=== PATIENT | male | born 1950 | race Caucasian/White ===

== ENCOUNTER 2020-05-09 06:17 | Outpatient (REF) | payer MEDICARE, OTHER, SELFPAY | END 2020-05-09 06:18 | disposition home or self-care (01) | LOC: HO.LAB 06:17 | PROVIDERS: PCP Internal Medicine; Visit Provider Internal Medicine | DX: Z20.822 Contact with and (suspected) exposure to COVID-19 (principal) | CPT/HCPCS: 36415; C9803; U0003 ==

== ENCOUNTER → 2021-10-04 10:12 | Outpatient (BNVA) | payer MEDICARE, OTHER, SELFPAY | PROVIDERS: PCP Internal Medicine; Visit Provider Surgery | DX: K40.90 Unilateral inguinal hernia, without obstruction or gangrene, not specified as recurrent (principal); E78.00 Pure hypercholesterolemia, unspecified; K21.9 Gastro-esophageal reflux disease without esophagitis; I10 Essential (primary) hypertension; Z90.79 Acquired absence of other genital organ(s) | CPT/HCPCS: 99202 ==

== ENCOUNTER → 2021-12-04 08:17 | Outpatient (BNVA) | payer MEDICARE, OTHER, SELFPAY | PROVIDERS: PCP Internal Medicine; Visit Provider Surgery | DX: K40.90 Unilateral inguinal hernia, without obstruction or gangrene, not specified as recurrent (principal); E78.00 Pure hypercholesterolemia, unspecified; K21.9 Gastro-esophageal reflux disease without esophagitis; I10 Essential (primary) hypertension; Z90.79 Acquired absence of other genital organ(s); Z79.899 Other long term (current) drug therapy | CPT/HCPCS: 99212 ==

== ENCOUNTER 2021-12-14 08:09 | Day surgery (SDC) | payer MEDICARE, OTHER, SELFPAY ==
[2021-12-07 16:07] VITALS: BMI 25.8
--- NOTE | 2021-12-12 15:49 | P.OP_ITS ---
Operative Note Operative Note Date of Service: 12/14/21 Narrative: Preop diagnosis: [RIGHT inguinal hernia] Postop diagnosis: [same, Direct] Procedure: [Open RIGHT INGUINAL HERNIA REPAIR WITH BARD MESH] Surgeon: Jayce Hollis MD Assist: [Jennifer Claros PA-C] Anesthesia: [General via LMA] Estimated blood loss: [3cc] Specimen: [none] Intraoperative findings: [A direct right inguinal hernia containing viable properitoneal fat was reduced and the floor imbricated with 2-0 polysorb. 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 He reports no urinary/incontinence issues post prostatectomy. Given his symptomatic hernia we discussed options including observation versus open operative repair with mesh. The option of a 2nd opinion was also discussed. The inherent risks to hernia repair including bleeding, infection, mesh complications that could require referral to a pain management center or reoperation to remove the mesh, bowel injury, effects of general anesthesia including urinary retention, seroma, and hernia recurrence, especially in the setting of increasing weight gain/obesity were all discussed at length in the patient's questions seemed to be answered. Procedure: [The patient was identified in the preoperative holding area by myself and the operative site marked by me confirming a RIGHT inguinal hernia. 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 The operative field hair had been clipped in preop holding. The patient was again identified in the operating suite and placed supine on the table. See anesthesia notes for full details regarding anesthesia care and management. An appropriate time-out was performed confirming the operative site and procedure. The patient was then widely prepped and draped in the usual manner using chlorhexidine. An ileoinguinal nerve block was performed using 0.5% ropivacaine and a standard RIGHT inguinal herniorrhaphy incision made sharply through the skin. Dissection was carried through all layers using electric cautery for dissection and hemostasis. Additional local was infiltrated is the external oblique aponeurosis, in the external oblique aponeurosis opened sharply in the direction of its fibers to the external ring. The ilioinguinal nerve was identified and preserved/sacrificed through the dissection. The cord was mobilized at the level of the pubic tubercle and surrounded with hernia tape. The floor was inspected and a direct hernia containing viable fat was dissected & reduced. Careful dissection of the spermatic cord to preserve the vessels and vas was performed to assess for indirect hernia sac. The hernia sac was highly dissected, opened, its contents reduced and suture ligation performed. Next, the floor was imbricated using a 2-0 Polysorb and a standard Stanley tension-free herniorrhaphy performed using polypropylene patch that was sutured to the pubic tubercle and inguinal ligament using a 2-0 Polysorb. A new internal ring was made using 2-0 polypropylene suture. The new internal ring was snug enough that it could just accommodate a tip of a hemostat. Next, the operative field was inspected for hemostasis which was good, ZynRelief applied, the external oblique aponeurosis was closed with a running 0 Polysorb suture, subcutaneous tissues closed with 3-0 Polysorb and skin closed with running 4-0 Monocryl subcuticular suture. The abdomen was washed and dried, Mastisol and Steri-Strips applied followed by a sterile dressing. Patient tolerated the procedure well was sent to the recovery area in stable condition. All sponge and instrument counts were correct x2. At the patient's request, I contacted his Janae [phone] and apprised her by telephone of the procedure. Instructions regarding limiting activity and pain management were reviewed. Questions were answered.]
[2021-12-14] MEDS: Lactated Ringers 1,000 ML 50 ML IVCONT (08:25)
[2021-12-14 08:30] VITALS: BP 145/82; PULSE 55; RESP 18; TEMP 36.5; O2SAT 97
[2021-12-14] MEDS: Heparin Sodium,Porcine 5,000 UNIT/ML VIAL 5000 UNIT SUBCUT (08:35)
--- NOTE | 2021-12-14 08:44 | PC.NURSE ---
allergy and reaction reviewed with dr. walko. mckee to give cefazolin
--- NOTE | 2021-12-14 08:46 | MHC.SHP ---
Pre-Procedural Eval Section A Date of Service: 12/14/21 The patient is an INPATIENT: No The History & Physical has been completed within 30 days and I have reviewed it.: Yes Section B Chief Complaint: hernia Allergies: Allergies Allergy/AdvReac Type Severity Reaction Status Date / Time Sulfa (Sulfonamide AdvReac Mild Hives Verified 12/14/21 08:02 Antibiotics) Plan I have reviewed the history and physical and performed a pertinent physical examination on my patient. No changes have occurred unless specified.
--- NOTE | 2021-12-14 08:48 | HO.ANESPROP2 ---
[facility] Active Problems Active Problems: All Active Problems (Updated 12/07/21 @ 15:00 by Dannielle Gallardo, CHARLENE) Reducible right inguinal hernia (Acute) Hypercholesterolemia (Acute) GERD (gastroesophageal reflux disease) (Acute) Status post prostatectomy (Acute) HTN (hypertension) (Acute) Past Medical History Medical History Elevated cholesterol GERD (gastroesophageal reflux disease) HTN (hypertension) Family History Family History Mother Alcohol abuse Father Mental health disorder Heart aneurysm Brother Suicide Family history of problems with anesthesia: No Surgical History Surgical History History of bilateral cataract extraction History of prostatectomy History of Problems with Anesthesia: No Social History Social History Are you a primary primary care md to a significant other at home: No Do you presently have visiting nurse or other home services: No Alcohol intake: never Patient Tobacco Use Status: Former Tobacco user Quit Date: ~ 24 yrs ago Tobacco use type: Cigarette Second Hand Smoke Exposure: No Use of substances other than those prescribed or required for medical reasons: No Have you been hit, kicked, punched, or otherwise hurt by someone within the past year? If so, by whom?: No Are you DNR?: No Advance Directives: No Advance Directives Information Provided: Yes Advance Directives on File: No Recently lost weight without trying: No Eating poorly because of decreased appetite: No Nutrition Risks: No Nutritional Risk Meds Allergies Allergy/AdvReac Type Severity Reaction Status Date / Time Sulfa (Sulfonamide AdvReac Mild Hives Verified 12/14/21 08:02 Antibiotics) Active Medications: Current Medications Fentanyl (Fentanyl Citrate/Pf 100 Mcg/2 Ml Vial) 25 mcg IVPUSH Q5M PRN; Protocol PRN Reason: Pain, Moderate (Pain Scale 4-6 Lactated Ringer's (Lr) 1,000 mls @ 50 mls/hr IVCONT .Q20H VIVIANE Last Admin: 12/14/21 08:25 Dose: 50 mls/hr Lactated Ringer's (Lr) 1,000 mls @ 50 mls/hr IVCONT .Q20H VIVIANE Ondansetron HCl (Ondansetron Hcl 4 Mg/2 Ml Vial) 4 mg IVPUSH ONCE PRN PRN Reason: Nausea and Vomiting Oxycodone HCl (Oxycodone Hcl Immed Release 5 Mg Tablet) 5 mg PO ONCE PRN PRN Reason: Pain, Severe (Pain Scale 7-10) Home Medications Medication Instructions Recorded Confirmed Last Taken Type amlodipine 5 mg tablet 5 mg PO DAILY 10/04/21 12/07/21 Unknown History cyclosporine 0.05 % eye drops in a 1 drp ophthalmic (eye) BID 10/04/21 12/07/21 Unknown History dropperette (Restasis) omeprazole 20 mg capsule,delayed 20 mg PO DAILY 10/04/21 12/07/21 Unknown History release simvastatin 10 mg tablet 10 mg PO BEDTIME 10/04/21 12/07/21 Unknown History Exam Exam Date and Time: December 14, 2021 0848 Height,Weight and Vital Signs: Height 5 ft 10 in Weight 81.647 kg Last Vital Signs Temp 97.7 F 12/14/21 08:30 Pulse 55 12/14/21 08:30 Resp 18 12/14/21 08:30 BP 145/82 H 12/14/21 08:30 Pulse Ox 97 12/14/21 08:30 O2 Del Method 12/14/21 08:30 Airway Mallampati Class: I TM Dist: >3cm Neck ROM: Full Loose/Missing/Broken Teeth: No (Rrr) Lungs: clear Assessment and Plan Final Anesthetic Review Family History of Problems with Anesthesia: No History of Problems with Anesthesia: No Final Preanesthetic Review: No Changes in Pt Med Stat, Meds/Allgs Chart Reviewed, Consent Obtained/Reviewed and Anes Risks/Benef Reviewed Patient Risk: Intermediate Procedure Risk: Low Anesthetic Plan Anesthetic Plan: GA Disposition: Standard PACU
[2021-12-14 10:32] VITALS: BP 138/84; PULSE 66; RESP 12; TEMP 36.5; O2SAT 100
[2021-12-14 10:37] VITALS: BP 134/80; PULSE 61; RESP 12; O2SAT 100
[2021-12-14 10:42] VITALS: BP 134/80; PULSE 58; RESP 12; O2SAT 99
[2021-12-14 10:47] VITALS: BP 134/78; PULSE 59; RESP 16; O2SAT 97
[2021-12-14 11:03] VITALS: BP 153/83; PULSE 59; RESP 16; TEMP 36.2; O2SAT 97
== END 2021-12-14 11:42 | disposition home or self-care (01) ==
LOC: HO.SSS 08:10
PROVIDERS: PCP Internal Medicine; Visit Provider Surgery
PROC: (CPT 49505; principal; 2021-12-14 11:30)
DX: K40.90 Unilateral inguinal hernia, without obstruction or gangrene, not specified as recurrent (principal); I10 Essential (primary) hypertension; E78.00 Pure hypercholesterolemia, unspecified; K21.9 Gastro-esophageal reflux disease without esophagitis; Z79.899 Other long term (current) drug therapy; Z88.2 Allergy status to sulfonamides; Z87.891 Personal history of nicotine dependence; Z90.79 Acquired absence of other genital organ(s)
CPT/HCPCS: 49505; C1781; C9088; J0690; J1100; J2250; J2405; J2795; J3010

== ENCOUNTER → 2021-12-22 09:28 | Outpatient (BNVA) | payer MEDICARE, OTHER, SELFPAY | PROVIDERS: PCP Internal Medicine; Visit Provider Surgery | DX: Z48.815 Encounter for surgical aftercare following surgery on the digestive system (principal) | CPT/HCPCS: 99212 ==

== ENCOUNTER → 2022-01-19 09:14 | Outpatient (BNVA) | payer MEDICARE, OTHER, SELFPAY | PROVIDERS: PCP Internal Medicine; Visit Provider Surgery | DX: Z09 Encounter for follow-up examination after completed treatment for conditions other than malignant neoplasm (principal); E78.00 Pure hypercholesterolemia, unspecified; I10 Essential (primary) hypertension; K21.9 Gastro-esophageal reflux disease without esophagitis; Z87.19 Personal history of other diseases of the digestive system; Z90.79 Acquired absence of other genital organ(s) | CPT/HCPCS: 99212 ==

== ENCOUNTER 2022-02-14 08:28 | Outpatient (REF) | payer MEDICARE, OTHER, SELFPAY ==
[2022-02-14 11:27] LABS: MANUAL DIFF FLAG NO
[2022-02-14 11:30] LABS: Appearance Urine Clear; Color Urine Yellow; Glucose Urine UA Negative (Negative); Leukocyte Esterase Urine Negative (Negative); Nitrite Urine Negative (Negative); PH 5.5 (5.0-9.0); Specific Gravity - Urine 1.015 (1.005-1.025); Urine Blood Negative (Negative); Urine Ketones Negative (Negative); Urine Protein Negative (Neg-Trace)
[2022-02-14 11:39] LABS: Bacteria Urine None Seen (None Seen); Hyaline Casts Urine 0-2 /LPF (0-2); RBC Urine 0-2 /HPF (0-2); Squamous Epithelial Cell Urine 0-2 /HPF (0-2); WBC Urine 0-5 /HPF (0-5)
[2022-02-14 11:52] LABS: Alanine Aminotransferase 17 U/L (0-40); Albumin Level 4.4 g/dL (3.5-5.0); Alkaline Phosphatase 65 U/L (39-117); Anion Gap 15 (12-20); Aspartate Amino Transferase 18 U/L (5-37); Bilirubin Total 1.4 mg/dL (0.0-1.0); Blood Urea Nitrogen 13 mg/dL (9-16); Calcium 9.1 mg/dL (8.4-10.2); Carbon Dioxide 23 mmol/L (22-29); Chloride 105 mmol/L (96-108); Cholesterol 209 mg/dL; Estimated Glomerular Filt Rate > 60; Glucose Fasting 102 mg/dL (60-99); HDL Cholesterol 63 mg/dL; LDL Cholesterol Calculated 133 mg/dl; Potassium 4.1 mmol/L (3.3-5.1); Sodium 139 mmol/L (135-145); Total Protein 6.8 g/dL (6.5-8.0); Triglycerides 66 mg/dL
[2022-02-14 11:53] LABS: Basophils Percent Auto 0.7 % (0-2); Eosinophils Absolute Auto 0.2 X10*3/uL (0.0-0.4); Eosinophils Percent Auto 3.8 % (0-4); Hematocrit 42.1 % (42.0-52.0); Imm Gran Abs Auto 0.01 X10*3/uL (0.00-0.03); Imm Gran Pct Auto 0.2 % (0.0-0.4); Lymphocytes Absolute Auto 0.9 X10*3/uL (1.2-4.9); Lymphocytes Percent Auto 16.1 % (20-40); Mean Corpuscular HGB Conc 33.3 g/dl (31.0-36.0); Mean Corpuscular Hemoglobin 29.7 pg (27.0-33.0); Mean Corpuscular Volume 89.2 fL (80.0-98.0); Mean Platelet Volume 11.6 fL (9.4-12.4); Monocytes Absolute Auto 0.5 X10*3/uL (0.1-1.2); Monocytes Percent Auto 9.8 % (2-11); Neutrophils Absolute Auto 3.8 x10*3/uL (2.0-8.3); Neutrophils Percent Auto 69.4 % (45-73); Platelet Count 194 X10*3/uL (160-400); Red Blood Count 4.72 X10*6/uL (4.60-5.80); Red Cell Distribution Width 13.5 % (11.0-16.0); White Blood Count 5.5 X10*3/uL (4.8-10.8)
[2022-02-14 12:17] LABS: TSH reflex Free T4 0.98 uIU/mL (0.32-4.0)
== END 2022-02-14 08:29 | disposition home or self-care (01) ==
LOC: HO.HMGCLDS 08:28
PROVIDERS: PCP Internal Medicine; Visit Provider Internal Medicine
DX: Z00.00 Encounter for general adult medical examination without abnormal findings (principal); E78.00 Pure hypercholesterolemia, unspecified; I10 Essential (primary) hypertension
CPT/HCPCS: 36415; 80053; 80061; 81001; 84443; 85025

== ENCOUNTER 2022-06-14 16:46 | Emergency (ER) | payer MEDICARE, OTHER, SELFPAY ==
--- NOTE | ~2022-06-14 | XR_ITS ---
EXAMINATION: XR CHEST CLINICAL INFORMATION: Chest pain COMPARISON: Chest x-ray 01/19/2013 TECHNIQUE: 2 views of the chest were obtained. FINDINGS: The lungs appear clear. No airspace consolidation. No pleural effusion or pneumothorax. Cardiomediastinal silhouette is within normal limits. No evidence pulmonary edema. No acute osseous injury. Multilevel degenerative disc disease in the thoracic spine. XR/XR chest 2V IMPRESSION: No acute pulmonary process.
--- NOTE | 2022-06-14 16:48 | ECG_ITS ---
Test Reason : CHEST PAIN Blood Pressure : / mmHG Vent. Rate : 054 BPM Atrial Rate : 054 BPM P-R Int : 178 ms QRS Dur : 088 ms QT Int : 414 ms P-R-T Axes : 035 022 053 degrees QTc Int : 392 ms Sinus bradycardia Otherwise normal ECG When compared with ECG of 19-JAN-2013 12:05, No significant change was found Referred By: Generic ED Physician Electronically Signed By:ANGELINA COY
[2022-06-14 17:09] VITALS: BP 158/75; PULSE 53; RESP 16; TEMP 36.6; O2SAT 99; BMI 25.8
--- NOTE | 2022-06-14 17:10 | ED_ITS ---
HPI - Chest Pain General Chief Complaint: Chest Pain <Aleksandra Ramirez CNP - Last Filed: 06/14/22 17:15> Stated Complaint: chest pain x5 days <Aleksandra Ramirez CNP - Last Filed: 06/14/22 17:15> Time Seen by Provider: 06/14/22 21:06 <Aleksandra Ramirez CNP - Last Filed: 06/14/22 17:15> Source: patient <Ab Caal MD - Last Filed: 06/15/22 05:53> Mode of arrival: ambulatory <Ab Caal MD - Last Filed: 06/15/22 05:53> Limitations: no limitations <Ab Caal MD - Last Filed: 06/15/22 05:53> History of Present Illness HPI narrative: Patient with history of high cholesterol hypertension no known coronary disease comes in for 4-5 days of left-sided chest pain, which feels like pressure achy feeling constant no diaphoresis no shortness of breath no leg swelling no palpitation patient never had similar pain in the past denies any anxiety pain is continuous. Prior to my evaluation patient had cardiogram and labs done cardiogram was normal without any ischemic changes high sensitive troponin was normal chest pain get worse on movements <Ab Caal MD - Last Filed: 06/15/22 05:53> Related Data Home Medications: Home Medications Medication Instructions Recorded Confirmed cyclosporine 0.05 % eye drops in a 1 drp ophthalmic (eye) BID 10/04/21 02/14/22 dropperette (Restasis) omeprazole 20 mg capsule,delayed 20 mg PO DAILY 10/04/21 02/14/22 release Previous Rx's Medication Instructions Recorded amlodipine 5 mg tablet 5 mg PO DAILY #90 tabs 02/14/22 simvastatin 10 mg tablet 10 mg PO BEDTIME #90 tabs 02/14/22 nirmatrelvir 300 mg (150 mg See Rx Instructions PO .COMPLEX 04/18/22 x2)-ritonavir 100 mg tablet,dose #30 ea pack(EUA) (Paxlovid) tramadol 50 mg tablet 50 mg PO Q6H PRN pain #20 tabs 06/14/22 <Aleksandra Ramirez CNP - Last Filed: 06/14/22 17:15> Allergies/Adverse Reactions: Allergies Allergy/AdvReac Type Severity Reaction Status Date / Time Sulfa (Sulfonamide AdvReac Mild Hives Verified 02/14/22 07:39 Antibiotics) <Aleksandra Ramirez CNP - Last Filed: 06/14/22 17:15> Review of Systems Review of Systems: Yes all other systems are reviewed and are negative <Ab Caal MD - Last Filed: 06/15/22 05:53> [facility] Past Medical History Medical History: Medical History Elevated cholesterol GERD (gastroesophageal reflux disease) HTN (hypertension) <Aleksandra Ramirez CNP - Last Filed: 06/14/22 17:15> Surgical History: Surgical History History of bilateral cataract extraction History of prostatectomy History of right inguinal hernia repair <Aleksandra Ramirez CNP - Last Filed: 06/14/22 17:15> Family History Family History: Family History Mother Alcohol abuse Substance use disorder Mental health disorder Father Heart aneurysm Substance use disorder Brother Suicide Substance use disorder <Aleksandra Ramirez CNP - Last Filed: 06/14/22 17:15> Social History Social History: Social History Household Members Other:: 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, , 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 Housing: House Are you a primary critical care rn to a significant other at home: No Do you presently have visiting nurse or other home services: No Alcohol intake: never Patient Tobacco Use Status: Former Tobacco user Quit Date: ~ 24 yrs ago Tobacco use type: Cigarette e-Cigarette/Vaping Use: Never Used Second Hand Smoke Exposure: No Advance Directives: Yes Advance Directives Information Provided: No Advance Directives on File: No Cognitive needs: No Hearing needs: No Vision needs: Yes <Aleksandra Ramirez CNP - Last Filed: 06/14/22 17:15> Physical Exam Vital Signs: Vital Signs: Last Vital Signs Temp 97.8 F 06/14/22 20:00 Pulse 59 06/14/22 20:00 Resp 16 06/14/22 20:00 BP 159/77 H 06/14/22 20:00 Pulse Ox 98 06/14/22 20:00 O2 Del Method 06/14/22 20:00 BMI result Body Mass Index 25.8 <Aleksandra Ramirez CNP - Last Filed: 06/14/22 17:15> Vital Signs: Last Vital Signs Temp 97.8 F 06/14/22 20:00 Pulse 59 06/14/22 20:00 Resp 16 06/14/22 20:00 BP 159/77 H 06/14/22 20:00 Pulse Ox 98 06/14/22 20:00 O2 Del Method 06/14/22 20:00 BMI result Body Mass Index 25.8 <Ab Caal MD - Last Filed: 06/15/22 05:53> Appearance: Alert. Oriented X3. No acute distress. Eyes: PERRLA, No Nystagmus ENT: Pharynx normal. Oral Mucosa moist Neck: Normal inspection. Neck supple. CVS: Normal heart rate and rhythm. Pulses normal. Respiratory: No respiratory distress. Equal air entry bilateral, no wheezing/rales/rhonchi Abdomen: Soft and nontender. Bowel sounds are present, no mass palpable, no CVA tenderness Skin: Skin warm and dry. Normal skin color. Normal skin turgor. Extremities: No lower extremity edema. No calf tenderness Neuro: Oriented X 3. No motor deficit. No sensory deficit.No cerebellar signs , cranial nerves II-XII intact <Ab Caal MD - Last Filed: 06/15/22 05:53> Course Course Course Narrative: This is an RME: Additional HPI, ROS, PE not included below will be deferred to primary provider. Patient is a 72-year-old male with hx of HTN, HLD who presents to emergency department for evaluation. Onset 5 days ago was experiencing neck pain, thought to be related to sleeping wrong, this improved. Then he developed constant left chest pain, worse with movement of arm, heavy lifting, deep breathing. Denies fever, cough, URI symptoms, SOB. Plan: labs, EKG, CXR, viral testing <Aleksandra Ramirez CNP - Last Filed: 06/14/22 17:15> Medications Administered Discontinued Medications Generic Name Dose Route Start Last Admin Trade Name Freq PRN Reason Stop Dose Admin Tramadol HCl 50 mg 06/14/22 21:34 06/14/22 21:47 Tramadol Hcl 50 Mg Tablet PO 06/14/22 21:35 50 mg ONCE ONE Administration <Aleksandra Ramirez CNP - Last Filed: 06/14/22 17:15> Medications Administered Discontinued Medications Generic Name Dose Route Start Last Admin Trade Name Freq PRN Reason Stop Dose Admin Tramadol HCl 50 mg 06/14/22 21:34 06/14/22 21:47 Tramadol Hcl 50 Mg Tablet PO 06/14/22 21:35 50 mg ONCE ONE Administration <Ab Caal MD - Last Filed: 06/15/22 05:53> Medical Decision Making Medical Decision Making [facility] Narrative: Patient atypical chest pain for more than 4 days normal cardiogram normal I sent a troponin increases on movement likely musculoskeletal. Will discharge patient on tramadol advised follow-up with <Ab Caal MD - Last Filed: 06/15/22 05:53> Lab Data [facility] Lab Attestation statement: I reviewed the patient's lab results. <Ab Caal MD - Last Filed: 06/15/22 05:53> Result Diagrams: 06/14/22 17:26 06/14/22 17:26 <Aleksandra Ramirez CNP - Last Filed: 06/14/22 17:15> Labs: Lab Results 06/14/22 06/14/22 06/14/22 Range/Units 17:26 17:26 17:26 WBC 6.4 (4.8-10.8) X10*3/uL RBC 4.75 (4.60-5.80) X10*6/uL Hgb 14.3 (14.0-18.0) g/dl Hct 42.2 (42.0-52.0) % MCV 88.8 (80.0-98.0) fL MCH 30.1 (27.0-33.0) pg MCHC 33.9 (31.0-36.0) g/dl RDW 13.3 (11.0-16.0) % Plt Count 181 (160-400) X10*3/uL MPV 11.0 (9.4-12.4) fL Immature Gran % (Auto) 0.2 (0.0-0.4) % Neut % (Auto) 67.8 (45-73) % Lymph % (Auto) 19.2 L (20-40) % Harris % (Auto) 8.3 (2-11) % Eos % (Auto) 3.6 (0-4) % Baso % (Auto) 0.9 (0-2) % Lymph # (Auto) 1.2 (1.2-4.9) X10*3/uL Harris # (Auto) 0.5 (0.1-1.2) X10*3/uL Eos # (Auto) 0.2 (0.0-0.4) X10*3/uL Baso # (Auto) 0.1 (0.0-0.2) X10*3/uL Abs Immat Gran (auto) 0.01 (0.00-0.03) X10*3/uL Absolute Neuts (auto) 4.3 (2.0-8.3) x10*3/uL Absolute Nucleated RBC 0.000 (0.0-0.012) X10*3/uL Nucleated RBC % (auto) 0.0 (0.0-0.2) /100WBC Sodium 140 (135-145) mmol/L Potassium 4.4 (3.3-5.1) mmol/L Chloride 104 (96-108) mmol/L Carbon Dioxide 29 (22-29) mmol/L Anion Gap 11 L (12-20) BUN 16 (9-16) mg/dL Creatinine 0.96 (0.5-1.4) mg/dL Estim Creat Clear Calc 69.7 Estimated GFR > 60 Random Glucose 92 (60-115) mg/dL Calcium 9.3 (8.4-10.2) mg/dL Total Bilirubin 1.7 H (0.0-1.0) mg/dL AST 18 (5-37) U/L ALT 13 (0-40) U/L Alkaline Phosphatase 59 (39-117) U/L Troponin I High Sens < 3.5 (<3.5-35.0) ng/L Total Protein 6.7 (6.5-8.0) g/dL Albumin 4.4 (3.5-5.0) g/dL COVID-19 (CASSIE) (Negative) COVID-19 Clin Com Influenza Type A (MANE) (Negative) Influenza Type B (MANE) (Negative) Influenza A & B Note 06/14/22 06/14/22 Range/Units 17:26 17:26 WBC (4.8-10.8) X10*3/uL RBC (4.60-5.80) X10*6/uL Hgb (14.0-18.0) g/dl Hct (42.0-52.0) % MCV (80.0-98.0) fL MCH (27.0-33.0) pg MCHC (31.0-36.0) g/dl RDW (11.0-16.0) % Plt Count (160-400) X10*3/uL MPV (9.4-12.4) fL Immature Gran % (Auto) (0.0-0.4) % Neut % (Auto) (45-73) % Lymph % (Auto) (20-40) % Harris % (Auto) (2-11) % Eos % (Auto) (0-4) % Baso % (Auto) (0-2) % Lymph # (Auto) (1.2-4.9) X10*3/uL Harris # (Auto) (0.1-1.2) X10*3/uL Eos # (Auto) (0.0-0.4) X10*3/uL Baso # (Auto) (0.0-0.2) X10*3/uL Abs Immat Gran (auto) (0.00-0.03) X10*3/uL Absolute Neuts (auto) (2.0-8.3) x10*3/uL Absolute Nucleated RBC (0.0-0.012) X10*3/uL Nucleated RBC % (auto) (0.0-0.2) /100WBC Sodium (135-145) mmol/L Potassium (3.3-5.1) mmol/L Chloride (96-108) mmol/L Carbon Dioxide (22-29) mmol/L Anion Gap (12-20) BUN (9-16) mg/dL Creatinine (0.5-1.4) mg/dL Estim Creat Clear Calc Estimated GFR Random Glucose (60-115) mg/dL Calcium (8.4-10.2) mg/dL Total Bilirubin (0.0-1.0) mg/dL AST (5-37) U/L ALT (0-40) U/L Alkaline Phosphatase (39-117) U/L Troponin I High Sens (<3.5-35.0) ng/L Total Protein (6.5-8.0) g/dL Albumin (3.5-5.0) g/dL COVID-19 (CASSIE) Negative (Negative) COVID-19 Clin Com See Note Influenza Type A (MANE) Negative (Negative) Influenza Type B (MANE) Negative (Negative) Influenza A & B Note See Note <Aleksandra Ramirez, HOSPITALITY MANAGER - Last Filed: 06/14/22 17:15> Lab Results 06/14/22 06/14/22 06/14/22 Range/Units 17:26 17:26 17:26 WBC 6.4 (4.8-10.8) X10*3/uL RBC 4.75 (4.60-5.80) X10*6/uL Hgb 14.3 (14.0-18.0) g/dl Hct 42.2 (42.0-52.0) % MCV 88.8 (80.0-98.0) fL MCH 30.1 (27.0-33.0) pg MCHC 33.9 (31.0-36.0) g/dl RDW 13.3 (11.0-16.0) % Plt Count 181 (160-400) X10*3/uL MPV 11.0 (9.4-12.4) fL Immature Gran % (Auto) 0.2 (0.0-0.4) % Neut % (Auto) 67.8 (45-73) % Lymph % (Auto) 19.2 L (20-40) % Harris % (Auto) 8.3 (2-11) % Eos % (Auto) 3.6 (0-4) % Baso % (Auto) 0.9 (0-2) % Lymph # (Auto) 1.2 (1.2-4.9) X10*3/uL Harris # (Auto) 0.5 (0.1-1.2) X10*3/uL Eos # (Auto) 0.2 (0.0-0.4) X10*3/uL Baso # (Auto) 0.1 (0.0-0.2) X10*3/uL Abs Immat Gran (auto) 0.01 (0.00-0.03) X10*3/uL Absolute Neuts (auto) 4.3 (2.0-8.3) x10*3/uL Absolute Nucleated RBC 0.000 (0.0-0.012) X10*3/uL Nucleated RBC % (auto) 0.0 (0.0-0.2) /100WBC Sodium 140 (135-145) mmol/L Potassium 4.4 (3.3-5.1) mmol/L Chloride 104 (96-108) mmol/L Carbon Dioxide 29 (22-29) mmol/L Anion Gap 11 L (12-20) BUN 16 (9-16) mg/dL Creatinine 0.96 (0.5-1.4) mg/dL Estim Creat Clear Calc 69.7 Estimated GFR > 60 Random Glucose 92 (60-115) mg/dL Calcium 9.3 (8.4-10.2) mg/dL Total Bilirubin 1.7 H (0.0-1.0) mg/dL AST 18 (5-37) U/L ALT 13 (0-40) U/L Alkaline Phosphatase 59 (39-117) U/L Troponin I High Sens < 3.5 (<3.5-35.0) ng/L Total Protein 6.7 (6.5-8.0) g/dL Albumin 4.4 (3.5-5.0) g/dL COVID-19 (CASSIE) (Negative) COVID-19 Clin Com Influenza Type A (MANE) (Negative) Influenza Type B (MANE) (Negative) Influenza A & B Note 06/14/22 06/14/22 Range/Units 17:26 17:26 WBC (4.8-10.8) X10*3/uL RBC (4.60-5.80) X10*6/uL Hgb (14.0-18.0) g/dl Hct (42.0-52.0) % MCV (80.0-98.0) fL MCH (27.0-33.0) pg MCHC (31.0-36.0) g/dl RDW (11.0-16.0) % Plt Count (160-400) X10*3/uL MPV (9.4-12.4) fL Immature Gran % (Auto) (0.0-0.4) % Neut % (Auto) (45-73) % Lymph % (Auto) (20-40) % Harris % (Auto) (2-11) % Eos % (Auto) (0-4) % Baso % (Auto) (0-2) % Lymph # (Auto) (1.2-4.9) X10*3/uL Harris # (Auto) (0.1-1.2) X10*3/uL Eos # (Auto) (0.0-0.4) X10*3/uL Baso # (Auto) (0.0-0.2) X10*3/uL Abs Immat Gran (auto) (0.00-0.03) X10*3/uL Absolute Neuts (auto) (2.0-8.3) x10*3/uL Absolute Nucleated RBC (0.0-0.012) X10*3/uL Nucleated RBC % (auto) (0.0-0.2) /100WBC Sodium (135-145) mmol/L Potassium (3.3-5.1) mmol/L Chloride (96-108) mmol/L Carbon Dioxide (22-29) mmol/L Anion Gap (12-20) BUN (9-16) mg/dL Creatinine (0.5-1.4) mg/dL Estim Creat Clear Calc Estimated GFR Random Glucose (60-115) mg/dL Calcium (8.4-10.2) mg/dL Total Bilirubin (0.0-1.0) mg/dL AST (5-37) U/L ALT (0-40) U/L Alkaline Phosphatase (39-117) U/L Troponin I High Sens (<3.5-35.0) ng/L Total Protein (6.5-8.0) g/dL Albumin (3.5-5.0) g/dL COVID-19 (CASSIE) Negative (Negative) COVID-19 Clin Com See Note Influenza Type A (MANE) Negative (Negative) Influenza Type B (MANE) Negative (Negative) Influenza A & B Note See Note <Ab Caal MD - Last Filed: 06/15/22 05:53> Independent Interpretation I performed an independent interpretation of an: EKG <Ab Caal MD - Last Filed: 06/15/22 05:53> Interpretation: Sinus bradycardia heart rate 54 beats per minute normal interval normal axis no acute ST changes no acute ischemia <Ab Caal MD - Last Filed: 06/15/22 05:53> Discharge Plan Discharge Clinical Impression: Chest pain <Aleksandra Ramirez CNP - Last Filed: 06/14/22 17:15> Patient Disposition: Home, Self-Care <Aleksandra Ramirez CNP - Last Filed: 06/14/22 17:15> Instructions: Chest Pain (ED) <Aleksandra Ramirez CNP - Last Filed: 06/14/22 17:15> Additional Instructions: Your chest pain is unlikely coming from the heart, tramadol for pain as advised Follow up with PCP for further evaluation including stress test <Aleksandra Ramirez CNP - Last Filed: 06/14/22 17:15> Prescriptions: New tramadol 50 mg tablet 50 mg PO Q6H PRN (Reason: pain) Qty: 20 0RF No Action Paxlovid (EUA) 300 mg (150 mg x 2)-100 mg tablets,dose pack See Rx Instructions PO .COMPLEX Qty: 30 0RF Rx Instructions: take TWO 150 mg tablets of nirmatrelvir with ONE 100 mg tablet of ritonavir twice daily for 5 days PO amlodipine 5 mg tablet 5 mg PO DAILY Qty: 90 3RF simvastatin 10 mg tablet 10 mg PO BEDTIME Qty: 90 3RF cyclosporine [Restasis] 0.05 % dropperette 1 drp ophthalmic (eye) BID omeprazole 20 mg capsule,delayed release(DR/EC) 20 mg PO DAILY <Aleksandra Ramirez CNP - Last Filed: 06/14/22 17:15> Interventions: ED Discharge Assessment Last Done: 06/14/22 21:56 <Aleksandra Ramirez CNP - Last Filed: 06/14/22 17:15> Discharge Date/Time: 06/14/22 21:57 <Aleksandra Ramirez CNP - Last Filed: 06/14/22 17:15>
[2022-06-14 17:32] LABS: MANUAL DIFF FLAG NO
[2022-06-14 17:47] LABS: Basophils Absolute Auto 0.1 X10*3/uL (0.0-0.2); Basophils Percent Auto 0.9 % (0-2); Eosinophils Absolute Auto 0.2 X10*3/uL (0.0-0.4); Eosinophils Percent Auto 3.6 % (0-4); Hematocrit 42.2 % (42.0-52.0); Hemoglobin 14.3 g/dl (14.0-18.0); Imm Gran Abs Auto 0.01 X10*3/uL (0.00-0.03); Imm Gran Pct Auto 0.2 % (0.0-0.4); Lymphocytes Absolute Auto 1.2 X10*3/uL (1.2-4.9); Lymphocytes Percent Auto 19.2 % (20-40); Mean Corpuscular HGB Conc 33.9 g/dl (31.0-36.0); Mean Corpuscular Hemoglobin 30.1 pg (27.0-33.0); Mean Corpuscular Volume 88.8 fL (80.0-98.0); Monocytes Absolute Auto 0.5 X10*3/uL (0.1-1.2); Monocytes Percent Auto 8.3 % (2-11); Neutrophils Absolute Auto 4.3 x10*3/uL (2.0-8.3); Neutrophils Percent Auto 67.8 % (45-73); Platelet Count 181 X10*3/uL (160-400); Red Blood Count 4.75 X10*6/uL (4.60-5.80); Red Cell Distribution Width 13.3 % (11.0-16.0); White Blood Count 6.4 X10*3/uL (4.8-10.8)
[2022-06-14 17:49] LABS: Alanine Aminotransferase 13 U/L (0-40); Albumin Level 4.4 g/dL (3.5-5.0); Alkaline Phosphatase 59 U/L (39-117); Anion Gap 11 (12-20); Aspartate Amino Transferase 18 U/L (5-37); Bilirubin Total 1.7 mg/dL (0.0-1.0); Blood Urea Nitrogen 16 mg/dL (9-16); Calcium 9.3 mg/dL (8.4-10.2); Carbon Dioxide 29 mmol/L (22-29); Chloride 104 mmol/L (96-108); Creatinine Clr Calc Pharmacy 69.7; Estimated Glomerular Filt Rate > 60; Glucose Random 92 mg/dL (60-115); Potassium 4.4 mmol/L (3.3-5.1); Sodium 140 mmol/L (135-145); Total Protein 6.7 g/dL (6.5-8.0)
[2022-06-14 17:51] LABS: COVID-19 Test Negative (Negative); IDNOW Serial# 16C4AD1C
[2022-06-14 17:52] LABS: IDNOW Serial# 9DB6401D; Influenza A Negative (Negative); Influenza B2 Negative (Negative)
[2022-06-14 17:53] VITALS: BP 145/76; PULSE 54; RESP 16; TEMP 36.5; O2SAT 98
--- NOTE | 2022-06-14 17:53 | MHC.EDTECH ---
this pct just assumed care of pt ,vitals sign taken ,pt was hooked up to monitoring coordinator .
[2022-06-14 17:56] LABS: Troponin-I High Sensitivity < 3.5 ng/L (<3.5-35.0)
[2022-06-14 20:00] VITALS: BP 159/77; PULSE 59; RESP 16; TEMP 36.6; O2SAT 98
[2022-06-14] MEDS: traMADoL HCL 50 MG TABLET PO (21:47)
== END 2022-06-14 21:57 | disposition home or self-care (01) ==
PROVIDERS: Nurse Practitioner Family; Emergency Provider Internal Medicine; PCP Internal Medicine
DX: R07.9 Chest pain, unspecified (principal); Z20.822 Contact with and (suspected) exposure to COVID-19; I10 Essential (primary) hypertension; E78.00 Pure hypercholesterolemia, unspecified; Z87.891 Personal history of nicotine dependence; Z79.02 Long term (current) use of antithrombotics/antiplatelets; Z79.899 Other long term (current) drug therapy
CPT/HCPCS: 71046; 80053; 84484; 85025; 87502; 87635; 93005; 99283; 99284

== ENCOUNTER → 2022-06-27 14:05 | Outpatient (BNVA) | payer MEDICARE, OTHER, SELFPAY | PROVIDERS: PCP Internal Medicine; Visit Provider Nurse Practitioner Family | DX: Z12.11 Encounter for screening for malignant neoplasm of colon (principal); K21.9 Gastro-esophageal reflux disease without esophagitis | CPT/HCPCS: 99202 ==

== ENCOUNTER 2022-12-05 06:45 | Day surgery (SDC) | payer MEDICARE, OTHER, SELFPAY ==
[2022-12-03 09:11] VITALS: BMI 26.3
--- NOTE | 2022-12-04 10:44 | P.CONAN_ITS ---
Documented by User: Aaliyah Petersen NP 12/04/22 10:45 HPI - Anesthesia Eval Consult details Narrative: 72yo M for Upper Endoscopy and Colonoscopy [facility] Active Problems Active Problems: All Active Problems (Updated 12/03/22 @ 09:05 by Yessica Herrera RN) Reducible right inguinal hernia (Acute) Hypercholesterolemia (Acute) GERD (gastroesophageal reflux disease) (Acute) Status post prostatectomy (Acute) HTN (hypertension) (Acute) Oropharyngeal dysphagia (Acute) Annual physical exam (Acute) Hx of colonoscopy (Acute) Blind left eye (Acute) Chest pain (Acute) Past Medical History Medical History (Updated 12/05/22 @ 08:04 by Frances Alvarez MD) Blind left eye Elevated cholesterol GERD (gastroesophageal reflux disease) HTN (hypertension) Family History Family History Mother Alcohol abuse Substance use disorder Mental health disorder Father Heart aneurysm Substance use disorder Brother Suicide Substance use disorder Family history of problems with anesthesia: No Surgical History Surgical History H/O colonoscopy History of bilateral cataract extraction History of prostatectomy History of right inguinal hernia repair History of Problems with Anesthesia: No Social History Social History Household Members Other:: 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 If so, by whom?: No Are you DNR?: No Advance Directives: No Advance Directives Information Provided: Yes (brochure mailed) Advance Directives on File: No Recently lost weight without trying: No Eating poorly because of decreased appetite: No Nutrition Risks: No Nutritional Risk Current occupational status: retired Cognitive needs: No Hearing needs: No Vision needs: Yes Meds Allergies Allergy/AdvReac Type Severity Reaction Status Date / Time Sulfa (Sulfonamide AdvReac Mild Hives Verified 08/14/22 08:55 Antibiotics) Home Medications Medication Instructions Recorded Confirmed Last Taken Type cyclosporine 0.05 % eye drops in a 1 drp ophthalmic (eye) BID 10/04/21 06/15/22 Unknown History dropperette (Restasis) prednisolone acetate 1 % eye 1 drp ophthalmic-Right QID 08/14/22 Unknown History drops,suspension Exam Exam Date and Time: December 04, 2022 1044 Height,Weight and Vital Signs: Height 5 ft 10 in Weight 83.007 kg Narrative Narrative: EKG 05/2022 Vent. Rate : 054 BPM ? ? Atrial Rate : 054 BPM ?? P-R Int : 178 ms? QRS Dur : 088 ms ? ? QT Int : 414 ms ? ? ? P-R-T Axes : 035 022 053 degrees ?? QTc Int : 392 ms ? Sinus bradycardia Otherwise normal ECG When compared with ECG of 19-JAN-2013 12:05, No significant change was found Assessment and Plan Assessment Anesthesia Assessment: Chart Reviewed Final Anesthetic Review Family History of Problems with Anesthesia: No History of Problems with Anesthesia: No Documented by User: Frances Alvarez MD 12/05/22 08:07 [facility] Active Problems Active Problems: All Active Problems (Updated 12/05/22 @ 07:18 by Frances Alvarez MD) Reducible right inguinal hernia (Acute) Hypercholesterolemia (Acute) GERD (gastroesophageal reflux disease) (Acute) Status post prostatectomy (Acute) HTN (hypertension) (Acute) Oropharyngeal dysphagia (Acute) Annual physical exam (Acute) Hx of colonoscopy (Acute) Blind left eye (Acute) Chest pain (Acute)05/2022. Seen in ER. Cardiac w/u negative. 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 If so, by whom?: No Are you DNR?: No Advance Directives: No Advance Directives Information Provided: Yes (brochure mailed) Advance Directives on File: No Recently lost weight without trying: No Eating poorly because of decreased appetite: No Nutrition Risks: No Nutritional Risk Current occupational status: retired Cognitive needs: No Hearing needs: No Vision needs: Yes Meds Allergies Allergy/AdvReac Type Severity Reaction Status Date / Time Sulfa (Sulfonamide AdvReac Mild Hives Verified 08/14/22 08:55 Antibiotics) Home Medications Medication Instructions Recorded Confirmed Last Taken Type cyclosporine 0.05 % eye drops in a 1 drp ophthalmic (eye) BID 10/04/21 06/15/22 Unknown History dropperette (Restasis) prednisolone acetate 1 % eye 1 drp ophthalmic-Right QID 08/14/22 Unknown History drops,suspension Exam Height,Weight and Vital Signs: Height 5 ft 10 in Weight 83.007 kg Vital Signs Temp Pulse Resp BP Pulse Ox O2 Del Method 12/05/22 07:29 96.9 F 56 20 131/98 H 98 Room Air Airway Mallampati Class: II TM Dist: >3cm Neck ROM: Full (but some stiffness from position ) Loose/Missing/Broken Teeth: No (Denies broken, loose, missing teeth) Heart: RRR Lungs: CTAB Assessment and Plan Assessment Anesthesia Assessment: Anesthesia Plan Discussed Final Anesthetic Review NPO: Yes ASA Class: II Final Preanesthetic Review: No Changes in Pt Med Stat, Meds/Allgs Chart Reviewed, Consent Obtained/Reviewed and Anes Risks/Benef Reviewed Patient Risk: Low Procedure Risk: Low Assessment/Block/Sedation in SS: Assess/Block/Sedation-SS Anesthetic Plan Anesthetic Plan: MAC: Disposition: Standard PACU
[2022-12-05 07:29] VITALS: BP 131/98; PULSE 56; RESP 20; TEMP 36.1; O2SAT 98
[2022-12-05] MEDS: Lactated Ringers 1,000 ML 100 ML IVCONT (07:46)
--- NOTE | 2022-12-05 08:33 | MHC.SHP ---
Pre-Procedural Eval Section A Date of Service: 12/05/22 Section B Chief Complaint: Screening,GERD Relevant Family History (Specify if Yes): No Relevant Social History: None Present Medications: see Short Stay Collaborative assessment Medical History: Significant History (Blind left eye Elevated cholesterol GERD (gastroesophageal reflux disease) HTN (hypertension)) History of Previous Operations: Relevant previous surgery/procedure and date(s) (H/O colonoscopy History of bilateral cataract extraction History of prostatectomy History of right inguinal hernia repair) Allergies: Allergies Allergy/AdvReac Type Severity Reaction Status Date / Time Sulfa (Sulfonamide AdvReac Mild Hives Verified 08/14/22 08:55 Antibiotics) Review of Systems Sugical H&P ROS: Negative: Constitution, Cardiovascular, Respiratory, Neurological, Psychiatric, Hem-Onc, Allergic/Immunologic, Gastrointestinal, Genitourinary, Musculoskeletal, Integumentary, Endocrine and Eyes/Ears/Nose/Throat Exam Surgical H&P Exam: Normal: HEENT, Normal: Heart, Normal: Lungs, Normal: Extremities, Normal: Abdomen, Normal: Skin and Normal: Neurological Plan Diagnosis/Plan: Unchanged I have reviewed the history and physical and performed a pertinent physical examination on my patient. No changes have occurred unless specified. Time Spent With Patient Time: Total time managing care of this patient today ____ minutes.
--- NOTE | 2022-12-05 08:42 | W.PM.OPN ---
Operative Note Operative Note Date of Service: 12/05/22 Narrative: Operative Information Procedure Description: EGD, Colonoscopy Indication: screening and GERD Anesthesia: MAC FLEXIBLE TRANSORAL UPPER GASTROINTESTINAL ENDOSCOPY AND COLONOSCOPY PROCEDURE NOTE UPPER ENDOSCOPY Consent: Indications for the procedure and potential complications of bleeding, perforation, reaction to medications and missed diagnosis were discussed with the patient and informed consent was obtained. Instrument: Olympus GIF H 190 J mid size upper endoscope Monitoring: Vital signs and clinical assessment, continuous EKG monitoring, Pulse oximetry, Carbon Dioxide monitoring and blood pressure monitoring were done throughout the procedure. Procedure: The patient was placed in the left lateral decubitis position and pre-procedure medications were administered and a bite block was placed. The endoscope was inserted into the mouth and advanced under direct vision to the third part of duodenum. A careful inspection was made as the upper endoscope was withdrawn including a retroflexed examination of the proximal stomach; Findings and interventions are described below. Findings: Larynx:normal Esophagus: GE junction at 44 cm, diaphragm hiatus at 44 cm, irregular z line with possible short segment barretts, bx taken from GEJ, the LEs was patulous Stomach: Slightly atrophic mucosa. Biopsies were obtained. Grade 2 flap valve on retroflexed examination of the cardia. Duodenum: Normal bulb and descending duodenum, Intervention: Biopsies as noted above COLONOSCOPY Instrument: Olympus variable stiffness pediatric scope 190L Colonoscopy Monitoring: Vital signs and clinical assessment, continuous EKG monitoring, Pulse oximetry, Carbon Dioxide monitoring and blood pressure monitoring were done throughout the procedure. Colon withdrawal time was 15 minutes. Procedure: The patient was placed in the left lateral decubitis position and pre-procedure medications were administered. After a digital rectal examination of the ano-rectum, the video colonoscope was inserted into the rectum and advanced through the colon to the cecum/TI. The colonoscope was slowly withdrawn in a retrograde panoramic fashion and the colon mucosa was carefully examined including a retroflexed view of the rectum. Findings and interventions are described below. Procedure Difficulty:moderate Findings: Terminal Ileum-not intubated Cecum:normal Ascending Colon: 4-6 mm sessile polyp removed with cold forceps, 10 mm sessile polyp removed with cold snare Transverse Colon - 12 mm sessile polyp removed with cold snare Descending Colon: 4-5 mm sessile polyp removed with cold forceps, mild diverticulosis noted Sigmoid Colon: severe diverticulosis - 10 mm sessile polyp removed with cold snare Rectum: Retroflexion with medium sized internal hemorrhoids, grade I, 10 mm sessile polyp removed with cold snare Anorectum - normal Colon preparation: [place] Bowel Preparation Scale Right colon; 2 Transverse colon: 2 Left colon; 1-2 (0 = Unprepared colon segment with mucosa not seen due to solid stool that cannot be cleared. 1 = Portion of mucosa of the colon segment seen, but other areas of the colon segment not well seen due to staining, residual stool and/or opaque liquid. 2 = Minor amount of residual staining, small fragments of stool and/or opaque liquid, but mucosa of colon segment seen well. 3 = Entire mucosa of colon segment seen well with no residual staining, small fragments of stool or opaque liquid) Impression and Post Procedure Diagnosis: Endoscopy Findings: lax LES possible barretts Colonoscopy Findings: polyps internal hemorrhoids diverticular disease Plan: Await Pathology results Repeat Colonoscopy in 1 year due to fair to poor prep in left colon and polyp burden or earlier if clinically indicated High fiber diet leaflet avoid straining at stool, epsom salts and sitz bath, anusol supps or cream If h pylori pos then treat Above findings were reviewed with the patient and relevant handouts were provided if indicated.
[2022-12-05 09:25] VITALS: BP 139/75; PULSE 60; RESP 11; TEMP 36.4; O2SAT 97
[2022-12-05 09:40] VITALS: BP 136/85; PULSE 62; RESP 14; TEMP 36.4; O2SAT 98
== END 2022-12-05 11:04 | disposition home or self-care (01) ==
PROVIDERS: PCP Internal Medicine; Visit Provider Internal Medicine Gastroenterology
PROC: (CPT 45385; principal; 2022-12-05 08:30)
DX: Z12.11 Encounter for screening for malignant neoplasm of colon (principal); D12.2 Benign neoplasm of ascending colon; D12.4 Benign neoplasm of descending colon; D12.5 Benign neoplasm of sigmoid colon; D12.8 Benign neoplasm of rectum; K63.5 Polyp of colon; K57.30 Diverticulosis of large intestine without perforation or abscess without bleeding; K64.0 First degree hemorrhoids; K21.9 Gastro-esophageal reflux disease without esophagitis; K29.50 Unspecified chronic gastritis without bleeding; K22.89 Other specified disease of esophagus; K44.9 Diaphragmatic hernia without obstruction or gangrene; I10 Essential (primary) hypertension; E78.00 Pure hypercholesterolemia, unspecified; H54.62 Unqualified visual loss, left eye, normal vision right eye; Z79.899 Other long term (current) drug therapy; Z88.2 Allergy status to sulfonamides; Z87.891 Personal history of nicotine dependence
CPT/HCPCS: 45385; 45380; 43239; 88305; 88342

== ENCOUNTER → 2022-12-05 06:45 | Outpatient (BNV) | payer MEDICARE, OTHER, SELFPAY | PROVIDERS: PCP Internal Medicine; Visit Provider Internal Medicine Gastroenterology | DX: Z12.11 Encounter for screening for malignant neoplasm of colon (principal); K21.9 Gastro-esophageal reflux disease without esophagitis; K22.4 Dyskinesia of esophagus; D12.2 Benign neoplasm of ascending colon; D12.3 Benign neoplasm of transverse colon; D12.4 Benign neoplasm of descending colon; D12.5 Benign neoplasm of sigmoid colon; D12.8 Benign neoplasm of rectum | CPT/HCPCS: 43239; 45380; 45385 ==

== ENCOUNTER 2022-12-17 08:11 | Outpatient (AMB) | payer MEDICARE, OTHER, SELFPAY ==
--- NOTE | 2022-12-17 08:44 | MHC.OFFVIS ---
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 However he reports last for month was seen in the ER for left-sided chest pain. CAD ruled out, patient diagnosed with GERD. Placed on omeprazole by PCP. Patient denies any symptoms since. Patient should go for upper endoscopy as well. Denies any issues with anesthesia in the past.? Denies any history of sleep apnea.? No history infectious diseases in the past or present.? Not on any anticoagulation therapy.? No family or personal history of colon cancer or polyps.? Patient denies melena, hematochezia, unintentional weight loss or ribbon like stools.? Discussed at length the pre-procedure,? prep, diet & medications as well as what to expect prior, during and after the procedure.?? Stressed the importance of good bowel prep. ?Recommended the use of Vaseline or Calmoseptine OTC & baby wipes with bowel movements to promote comfort.? ?Patient verbalizes understanding and agrees to plan of care.? He was given the opportunity to ask questions and all questions answered.? We will see him after the procedure.? GERD (gastroesophageal reflux disease) Continue taking omeprazole daily as ordered. Avoid dietary triggers in late night snacking. Staying upper for minimum 3 hours after meals discussed with patient. Patient will go for upper endoscopy to rule out gastritis, peptic or gastric ulcers, Rea's, esophagitis. I will see him after the procedure, sooner on as needed basis. Patient is agreeable to this plan and verbalizes understanding of instructions. He was given the opportunity to ask questions all questions answered. ? Thank you for allowing me to participate in his care Plan Medications New bisacodyl (Dulcolax (bisacodyl)) take 2 tabs at noon the day before your colonoscopy 10 mg (2 x 5 mg) PO ONCE 1 day 2 tabs 0RF Z12.11 polyethylene glycol 3350 (Miralax) As directed by gastroenterology department at [facility] 238 grams PO ONCE 238 grams 0RF Z12.11 UPPER ENDOSCOPY AND COLONOSCOPY: Findings: Larynx:normal Esophagus: GE junction at 44? cm, diaphragm hiatus at 44 cm, irregular z line with possible short segment barretts, bx taken from GEJ, the LEs was patulous Stomach: Slightly atrophic mucosa. Biopsies were obtained. Grade 2 flap valve on retroflexed examination of the cardia. Duodenum: Normal bulb and descending duodenum, Intervention: Biopsies as noted above Findings: Terminal Ileum-not intubated Cecum:normal Ascending Colon: 4-6 mm sessile polyp removed with cold forceps, 10 mm sessile polyp removed with cold snare Transverse Colon - 12 mm sessile polyp removed with cold snare Descending Colon: 4-5 mm sessile polyp removed with cold forceps, mild diverticulosis noted Sigmoid Colon: severe diverticulosis - 10 mm sessile polyp removed with cold snare Rectum: Retroflexion with medium sized internal hemorrhoids, grade I, 10 mm sessile polyp removed with cold snare Anorectum - normal Colon preparation: Peebles Bowel Preparation Scale Right colon; 2 Transverse colon: 2 Left colon; 1-2 (0 = Unprepared colon segment with mucosa not seen due to solid stool that cannot be cleared. 1 = Portion of mucosa of the colon segment seen, but other areas of the colon segment not well seen due to staining, residual stool and/or opaque liquid. 2 = Minor amount of residual staining, small fragments of stool and/or opaque liquid, but mucosa of colon segment seen well. 3 = Entire mucosa of colon segment seen well with no residual staining, small fragments of stool or opaque liquid) Impression and Post Procedure Diagnosis: Endoscopy Findings: lax LES possible barretts Colonoscopy Findings: polyps internal hemorrhoids diverticular disease Plan: Await Pathology results Repeat Colonoscopy in 1 year due to fair to poor prep in left colon and polyp burden or earlier if clinically indicated High fiber diet leaflet avoid straining at stool, epsom salts and sitz bath, anusol supps or cream If h pylori pos then treat PATHOLOGY: Diagnosis A.? Stomach, biopsy:? Gastric antral and body mucosa with congestion and focal minimal chronic inactive inflammation; negative for H pylori, intestinal metaplasia and dysplasia. B.? Gastroesophageal junction, biopsy:? Columnar mucosa with lamina propria congestion and hemorrhage, mild chronic inflammation, and scant detached squamous epithelium; negative for intestinal metaplasia and dysplasia.? C.? Colon, ascending, polyps:? Tubular adenomas (3 pieces involved); negative for high-grade dysplasia and carcinoma.? D.? Colon, transverse, polyp:? No tissue present for evaluation; fecal material only. E.? Colon, rectal polyp:? Tubulovillous adenoma (cannot evaluate margin); negative for high-grade dysplasia and carcinoma.? F.? Colon, descending, polyp:? Tubular adenoma; negative for high-grade dysplasia and carcinoma.? G.? Colon, sigmoid, polyp:? Tubular adenoma; negative for high-grade dysplasia and carcinoma. TODAY'S VISIT Patient is here today for follow-up and to discuss upper endoscopy and colonoscopy results. Biopsy results discussed with patient. Patient denies any ill effects from the prep, anesthesia procedure itself. Patient will need to return for colonoscopy in 1 year due to tubular villous adenoma and multiple polyps. Other polyps were tubular adenoma without any high-grade dysplasia or carcinoma. Patient can not 10 use to be taking omeprazole. Has been on omeprazole for quite some time and upper endoscopy showed esophagitis and gastritis. Patient will be switched to different PPI. Patient denies dyspepsia, dysphagia or odynophagia. Denies melena, hematochezia, unintentional weight loss or ribbon like stools. Patient reports that he has been feeling fairly well. Denies any other GI concerning symptoms. [facility] Medical History (Updated 12/17/22 @ 17:22 by Jennifer Corral, LAWN CARE SPECIALIST-) Blind left eye Elevated cholesterol GERD (gastroesophageal reflux disease) HTN (hypertension) Tubular adenoma Tubulovillous adenoma Surgical History H/O colonoscopy History of bilateral cataract extraction History of esophagogastroduodenoscopy (EGD) History of prostatectomy History of right inguinal hernia repair Family History Mother Alcohol abuse Substance use disorder Mental health disorder Father Heart aneurysm Substance use disorder Brother Suicide Substance use disorder Social History Household Members 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, , 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 Housing: House Are you a primary home child care provider to a significant other at home: No Do you presently have visiting nurse or other home services: No Alcohol intake: never Patient Tobacco Use Status: Former Tobacco user Quit Date: ~age 48 Tobacco use type: Cigarette e-Cigarette/Vaping Use: Never Used Second Hand Smoke Exposure: No Current occupational status: retired Cognitive needs: No Hearing needs: No Vision needs: Yes Review of Systems Const Denies weight gain and Denies weight loss ENT Reports no additional complaints, Denies dysphagia and Denies odynophagia Card Reports no additional complaints Resp Reports no additional complaints GI Denies abdominal pain, Denies belching, Denies melena, Denies bloating, Denies change in bowel habits, Denies dysphagia, Denies excessive flatus, Denies dyspepsia, Denies heartburn, Denies diarrhea, Denies loose stools, Denies nausea, Denies odynophagia and Denies vomiting Reports no additional complaints Musc Reports no additional complaints Neuro Reports no additional complaints Psych Reports no additional complaints Endo Reports no additional complaints Physical Exam Vital Signs: Last Vital Signs Pulse 65 12/17/22 08:45 BP 153/80 H 12/17/22 08:45 BMI result Body Mass Index 26.9 Const General: healthy appearing, no acute distress and well developed Nutritional Appearance: well nourished Orientation/consciousness: patient oriented x3 HEENT Head: Yes normal to inspection, Yes normocephalic and Yes atraumatic Face and sinus: Yes normal facial exam Mouth: Normal oral and palatal mucosa present Throat: Yes posterior oropharynx normal, Yes tonsils normal and Yes uvula midline Eyes General: appearance normal, both eyes and all related structures Neck Neck: Yes normal visual inspection, Yes full ROM and Yes trachea midline Thyroid: Thyroid normal Resp Effort & Inspection: normal respiratory effort, able to speak in complete sentences, no tracheal deviation and symmetric chest movement Auscultation: clear to auscultation bilaterally Cardio Rate: regular rate Heart sounds: S1 normal heart sound present and S2 normal heart sound present GI Inspection: Yes normal to inspection and No distended Palpation (GI): Soft to palpation, not firm, nontender and No hepatosplenomegaly present Auscultation: normal bowel sounds General: Yes no CVA tenderness Back/Spine/Pelvis Back: no CVA tenderness Skin General skin exam: elasticity normal, turgor normal and dry skin Neuro General: patient oriented x3 Psych Appearance: grossly normal Mental Status: mental status grossly normal Speech and movement: Normal speech and movement present Assessment & Plan Assessment & Plan (1) Tubular adenoma: Code(s): D36.9 - Benign neoplasm, unspecified site Plan: Tubular adenoma without high-grade dysplasia causing a found. Colorectal screening in 1 year (2) Tubulovillous adenoma: Code(s): D36.9 - Benign neoplasm, unspecified site Plan: One tubulovillous adenoma found in the rectum. Patient denies any rectal pain. One year colorectal screening, earlier if clinically symptomatic (3) Status post colonoscopy: Code(s): Z98.890 - Other specified postprocedural states Plan: Patient denies any ill effects from the prep, anesthesia or procedure itself. Colorectal screening 1 year recommended due to multiple polyps tubular adenoma and 1 tubulovillous adenoma. (4) Gastritis: Code(s): K29.70 - Gastritis, unspecified, without bleeding Qualifiers: Gastritis type: unspecified gastritis Plan: Patient will continue PPI therapy. Will switch to pantoprazole. Currently patient is asymptomatic. Discussed with patient the importance of avoiding dietary triggers in late night snacking. Staying upright for minimal 3 hours after meals discussed with patient. (5) GERD (gastroesophageal reflux disease): Code(s): K21.9 - Gastro-esophageal reflux disease without esophagitis Qualifiers: Esophagitis presence: with esophagitis Esophagitis bleeding: without hemorrhage Qualified Code(s): K21.00 - Gastro-esophageal reflux disease with esophagitis, without bleeding Plan: Mild inflammation at that GE junction. Will switch to pantoprazole. Discussed with patient also avoiding dietary triggers and late night snacking. Staying upright for minimal 3 hours after meals discussed with patient. Patient will return in 6 months, sooner on as needed basis. Patient is agreeable to this plan and verbalizes understanding of instructions. He was given the opportunity to ask questions and all questions answered. Thank you for allowing me to participate in his care Medications: New pantoprazole take one tablet half an hour before breakfast 40 mg PO DAILY 90 tabs 2RF K21.9 - Gastro-esophageal reflux disease without esophagitis Discontinued omeprazole Discontinued Reason: Doctor's Order 20 mg PO DAILY 30 caps 4RF Coding Level of Care Code Est Pt Level 4 (33936) Diagnoses Tubular adenoma D36.9 Tubulovillous adenoma D36.9 Status post colonoscopy Z98.890 Gastritis K29.70 Gastritis type: unspecified gastritis GERD (gastroesophageal reflux disease) K21.00 Esophagitis presence: with esophagitis Esophagitis bleeding: without hemorrhage Time Spent (min) 35 Comment 20 minutes spent with patient and additional 15 minutes spent reviewing his records
[2022-12-17 08:45] VITALS: BP 153/80; PULSE 65; BMI 26.9
== END 2022-12-17 09:13 | disposition home or self-care (01) ==
PROVIDERS: PCP Internal Medicine; Visit Provider Nurse Practitioner Family
DX: D36.9 Benign neoplasm, unspecified site (principal); Z98.890 Other specified postprocedural states; K29.70 Gastritis, unspecified, without bleeding; K21.00 Gastro-esophageal reflux disease with esophagitis, without bleeding
CPT/HCPCS: 99214

== ENCOUNTER → 2022-12-17 08:11 | Outpatient (BNVA) | payer MEDICARE, OTHER, SELFPAY | PROVIDERS: PCP Internal Medicine; Visit Provider Nurse Practitioner Family | DX: K57.30 Diverticulosis of large intestine without perforation or abscess without bleeding (principal); D12.2 Benign neoplasm of ascending colon; D12.4 Benign neoplasm of descending colon; D12.5 Benign neoplasm of sigmoid colon; D12.8 Benign neoplasm of rectum; K64.8 Other hemorrhoids; K29.70 Gastritis, unspecified, without bleeding; K21.9 Gastro-esophageal reflux disease without esophagitis; Z98.890 Other specified postprocedural states | CPT/HCPCS: 99212 ==

== ENCOUNTER 2023-01-14 12:14 | Outpatient (AMB) | payer MEDICARE, OTHER, SELFPAY ==
--- NOTE | 2023-01-14 12:29 | A.OFFPC_ITS ---
Vital Signs 01/14/23 12:30 Height 5 ft 10 in Weight 189 lb BMI 27.1 BP 128/76 Blood Pressure Location Lt brachial Position Sitting Pulse 61 Pulse Source Pulse Oximeter Pulse Oximetry (%) 97 Oxygen Delivery Method Room Air Intake Visit Reasons: Spot on chest needs referral to [place] Intake Note: Pt is here today for a follow up visit Pt states that he has a mole on chest marina t he would like the doctor to look at. Allergies Sulfa (Sulfonamide Antibiotics) Adverse Reaction (Mild, Verified 01/14/23 12:33) Hives Medication List - Last Reconciled 01/14/23 by Stefanie Frias MD amlodipine 5 mg PO DAILY cyclosporine 0.05% (Restasis) 1 drp ophthalmic (eye) BID pantoprazole 40 mg PO DAILY prednisolone acetate 1% 1 drp ophthalmic-Right QID simvastatin 10 mg PO BEDTIME Tobacco use date assessed: 01/14/23 Dental Screening Dental Screen Date: 01/14/23 Did you have a dental visit in the last 12 months?: Yes Did you have a dental problem in the last 6 months where you did not have access to dental care?: No Was dental information given to patient?: Patient has dentist HPI Spot on chest needs referral to [place] HPI Details PATIENT PRESENTS FOR THE FOLLOW-UP ON HYPERTENSION HYPERLIPIDEMIA CONTROLLED ON CURRENT MEDICATIONS. patient noticed a changing mole on the upper chest and would like to see a community living instructor [facility] Medical History (Updated 01/14/23 @ 13:28 by Stefanie Frias MD) 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 GERD (gastroesophageal reflux disease) Elevated cholesterol HTN (hypertension) Surgical History History of esophagogastroduodenoscopy (EGD) H/O colonoscopy History of right inguinal hernia repair History of prostatectomy History of bilateral cataract extraction Family History Mother Alcohol abuse Substance use disorder Mental health disorder Father Heart aneurysm Substance use disorder Brother Suicide Substance use disorder Social History 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, , 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 Jim Villanueva, Martha Richardson, Julian Mensah and colleagues, with an educational dylan from [employer]. Review of Systems Const All systems reviewed & are unremarkable except as noted in HPI and below Reports no additional complaints ENT Reports no additional complaints Card Reports no additional complaints Resp Reports no additional complaints GI Reports no additional complaints Reports no additional complaints Physical exam (Primary Care) Vital Signs: Last Vital Signs Pulse 61 01/14/23 12:30 BP 128/76 01/14/23 12:30 Pulse Ox 97 01/14/23 12:30 Oxygen Delivery Method Room Air 01/14/23 12:30 BMI result Body Mass Index 27.1 Tobacco/Smoking Status: Tobacco use Status Tobacco use date assessed 01/14/23 01/14/23 12:34 Patient Tobacco Use Status Former Tobacco user 01/14/23 12:34 Tobacco use type Cigarette 01/14/23 12:29 e-Cigarette/Vaping Use Never Used 01/14/23 12:29 Thrive Assessment: Date of Thrive Assessment Date Thrive assessed 08/14/22 01/14/23 12:29 HENMT Head: Yes normal to inspection Mouth: Normal oral and palatal mucosa present Resp Effort & Inspection: normal respiratory effort Auscultation: clear to auscultation bilaterally Cardio Rhythm: regular rhythm Heart sounds: S1 normal heart sound present and S2 normal heart sound present Skin Other: 2 cm irregular borders stuck on raised lesion on the upper chest Assessment and Plan Assessment & Plan (1) Dysplastic nevi: Comment: CHEST Code(s): D23.9 - Other benign neoplasm of skin, unspecified (2) Hypercholesterolemia: Code(s): E78.00 - Pure hypercholesterolemia, unspecified Plan: cont statin (3) HTN (hypertension): Code(s): I10 - Essential (primary) hypertension Plan: cont med, f/u in May for PE Orders: Orders Complete Blood Count Auto Diff 05/28/23 E78.00 - Pure hypercholesterolemia, unspecified, I10 - Essential (primary) hypertension Comprehensive [place]. Panel Fast 05/28/23 E78.00 - Pure hypercholesterolemia, unspecified, I10 - Essential (primary) hypertension Lipid Panel 05/28/23 E78.00 - Pure hypercholesterolemia, unspecified, I10 - Essential (primary) hypertension PSA,Total (Free>4and<10) 05/28/23 E78.00 - Pure hypercholesterolemia, unspecified, I10 - Essential (primary) hypertension Referrals Dermatology Referral D23.9 - Other benign neoplasm of skin, unspecified Coding Level of Care Code Est Pt Level 3 (50994) Diagnoses Dysplastic nevi D23.9 Hypercholesterolemia E78.00 HTN (hypertension) I10
[2023-01-14 12:30] VITALS: BP 128/76; PULSE 61; O2SAT 97; BMI 27.1
== END 2023-01-14 14:06 | disposition home or self-care (01) ==
PROVIDERS: PCP Internal Medicine; Visit Provider Internal Medicine
DX: D23.9 Other benign neoplasm of skin, unspecified (principal); E78.00 Pure hypercholesterolemia, unspecified; I10 Essential (primary) hypertension
CPT/HCPCS: 99213

== ENCOUNTER 2023-06-03 07:57 | Outpatient (AMB) | payer MEDICARE, OTHER, SELFPAY ==
--- NOTE | 2023-06-03 08:13 | MHC.OFFVIS ---
Intake Vital Signs 06/03/23 08:15 Height 5 ft 10 in Weight 190 lb BMI 27.3 BP 157/74 H Blood Pressure Location Lt brachial Position Sitting Pulse 55 Intake Visit Reasons: 6 month follow up Intake Note: Patient follow up for GERD. Patient denies any GI issues. 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 Colorectal screening in 1 year Tubulovillous adenoma One tubulovillous adenoma found in the rectum. Patient denies any rectal pain. One year colorectal screening, earlier if clinically symptomatic Status post colonoscopy Patient denies any ill effects from the prep, anesthesia or procedure itself. Colorectal screening 1 year recommended due to multiple polyps tubular adenoma and 1 tubulovillous adenoma. Gastritis Patient will continue PPI therapy. Will switch to pantoprazole. Currently patient is asymptomatic. Discussed with patient the importance of avoiding dietary triggers in late night snacking. Staying upright for minimal 3 hours after meals discussed with patient. GERD (gastroesophageal reflux disease) Mild inflammation at that GE junction. Will switch to pantoprazole. Discussed with patient also avoiding dietary triggers and late night snacking. Staying upright for minimal 3 hours after meals discussed with patient. Patient will return in 6 months, sooner on as needed basis. Patient is agreeable to this plan and verbalizes understanding of instructions. He was given the opportunity to ask questions and all questions answered. ? Thank you for allowing me to participate in his care Plan Medications New pantoprazole take one tablet half an hour before breakfast 40 mg PO DAILY 90 tabs 2RF K21.9 - Gastro-esophageal reflux disease without esophagitis Discontinued omeprazole Discontinued Reason: Doctor's Order 20 mg PO DAILY 30 caps 4RF TODAY'S VISIT: Patient is here today for follow-up. Patient reports that he is feeling well since the last time I have seen him. Patient reports that pantoprazole is working better for him than omeprazole. Patient states that he takes it every morning half an hour before breakfast. He reports that his symptoms of acid reflux and dyspepsia are suppressed completely. Patient denies dysphagia or odynophagia. Reports that he is moving his bowels well. Occasional feeling like he does not empty his bowels completely, however he is trying to eat more fruits and vegetables. Patient denies melena, hematochezia, unintentional weight loss or ribbon like stools. Patient had colonoscopy with suboptimal prep, tubulovillous adenoma on tubular adenoma seen. Patient will need colonoscopy in November of this year. Patient denies any other GI concerning symptoms today. 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, , 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 Housing: House Are you a primary health care attorney to a significant other at home: No Do you presently have visiting nurse or other home services: No Alcohol intake: never Patient Tobacco Use Status: Former Tobacco user Quit Date: ~age 48 Tobacco use type: Cigarette e-Cigarette/Vaping Use: Never Used Second Hand Smoke Exposure: No Current occupational status: retired Cognitive needs: No Hearing needs: No Vision needs: Yes Review of Systems Const Denies weight gain and Denies weight loss ENT Reports no additional complaints, Denies dysphagia and Denies odynophagia Card Reports no additional complaints Resp Reports no additional complaints GI Denies abdominal pain, Denies belching, Denies melena, Denies bloating, Denies change in bowel habits, Denies dysphagia, Denies excessive flatus, Denies dyspepsia, Denies heartburn, Denies diarrhea, Denies loose stools, Denies nausea, Denies odynophagia and Denies vomiting Reports no additional complaints Musc Reports no additional complaints Neuro Reports no additional complaints Psych Reports no additional complaints Endo Reports no additional complaints Physical Exam Vital Signs: Last Vital Signs Pulse 55 06/03/23 08:15 BP 157/74 H 06/03/23 08:15 BMI result Body Mass Index 27.3 Const General: healthy appearing, no acute distress and well developed Nutritional Appearance: well nourished Orientation/consciousness: patient oriented x3 Resp Effort & Inspection: normal respiratory effort, able to speak in complete sentences, no tracheal deviation and symmetric chest movement Auscultation: clear to auscultation bilaterally Cardio Rate: regular rate GI Inspection: Yes normal to inspection and No distended Palpation (GI): Soft to palpation, not firm, nontender and No hepatosplenomegaly present Auscultation: normal bowel sounds General: Yes no CVA tenderness Back/Spine/Pelvis Back: no CVA tenderness Skin General skin exam: elasticity normal, turgor normal and dry skin Neuro General: patient oriented x3 Psych Appearance: grossly normal Mental Status: mental status grossly normal Assessment & Plan Assessment & Plan (1) GERD (gastroesophageal reflux disease): Code(s): K21.9 - Gastro-esophageal reflux disease without esophagitis Qualifiers: Esophagitis bleeding: without hemorrhage Esophagitis presence: with esophagitis Qualified Code(s): K21.00 - Gastro-esophageal reflux disease with esophagitis, without bleeding (2) Gastritis: Code(s): K29.70 - Gastritis, unspecified, without bleeding Qualifiers: Gastritis type: other gastritis Chronicity: chronic Gastritis bleeding: without bleeding Qualified Code(s): K29.50 - Unspecified chronic gastritis without bleeding Plan Continue pantoprazole every morning. Patient was encouraged to avoid dietary triggers and late night snacking. He will return in September and we will discuss going for colonoscopy. We will re-evaluate the need of him going for upper endoscopy. Patient is agreeable to this plan and verbalizes understanding of instructions. He was given the opportunity to ask questions and all questions answered. Thank you for allowing me to participate in his care Medications: New polyethylene glycol 3350 (Miralax) 17 grams PO DAILY 510 grams 2RF Coding Level of Care Code Est Pt Level 3 (09261) Diagnoses Gastroesophageal reflux disease with esophagitis without hemorrhage K21.00 Esophagitis bleeding: without hemorrhage Esophagitis presence: with esophagitis Other chronic gastritis without hemorrhage K29.50 Gastritis type: other gastritis Chronicity: chronic Gastritis bleeding: without bleeding Time Spent (min) 25 Comment 15 minutes spent with patient and additional 10 minutes spent reviewing his records
[2023-06-03 08:15] VITALS: BP 157/74; PULSE 55; BMI 27.3
== END 2023-06-03 08:34 | disposition home or self-care (01) ==
PROVIDERS: PCP Internal Medicine; Visit Provider Nurse Practitioner Family
DX: K21.00 Gastro-esophageal reflux disease with esophagitis, without bleeding (principal); K29.50 Unspecified chronic gastritis without bleeding
CPT/HCPCS: 99213

== ENCOUNTER → 2023-06-03 07:57 | Outpatient (BNVA) | payer MEDICARE, OTHER, SELFPAY | PROVIDERS: PCP Internal Medicine; Visit Provider Nurse Practitioner Family | DX: K21.00 Gastro-esophageal reflux disease with esophagitis, without bleeding (principal); K29.50 Unspecified chronic gastritis without bleeding | CPT/HCPCS: 99212 ==

== ENCOUNTER 2023-06-06 07:52 | Outpatient (REF) | payer MEDICARE, OTHER, SELFPAY ==
[2023-06-06 11:31] LABS: MANUAL DIFF FLAG NO
[2023-06-06 11:41] LABS: Basophils Absolute Auto 0.1 X10*3/uL (0.0-0.2); Basophils Percent Auto 1.1 % (0-2); Eosinophils Absolute Auto 0.3 X10*3/uL (0.0-0.4); Eosinophils Percent Auto 6.1 % (0-4); Hematocrit 44.8 % (42.0-52.0); Hemoglobin 15.2 g/dl (14.0-18.0); Imm Gran Abs Auto 0.01 X10*3/uL (0.00-0.03); Imm Gran Pct Auto 0.2 % (0.0-0.4); Lymphocytes Absolute Auto 1.2 X10*3/uL (1.2-4.9); Lymphocytes Percent Auto 21.8 % (20-40); Mean Corpuscular HGB Conc 33.9 g/dl (31.0-36.0); Mean Corpuscular Hemoglobin 30.1 pg (27.0-33.0); Mean Corpuscular Volume 88.7 fL (80.0-98.0); Mean Platelet Volume 11.4 fL (9.4-12.4); Monocytes Absolute Auto 0.6 X10*3/uL (0.1-1.2); Monocytes Percent Auto 10.8 % (2-11); Neutrophils Absolute Auto 3.3 x10*3/uL (2.0-8.3); Platelet Count 200 X10*3/uL (160-400); Red Blood Count 5.05 X10*6/uL (4.60-5.80); Red Cell Distribution Width 13.3 % (11.0-16.0); White Blood Count 5.6 X10*3/uL (4.8-10.8)
[2023-06-06 11:51] LABS: Alanine Aminotransferase 13 U/L (0-40); Albumin Level 4.3 g/dL (3.5-5.0); Alkaline Phosphatase 62 U/L (39-117); Anion Gap 13 (12-20); Aspartate Amino Transferase 19 U/L (5-37); Bilirubin Total 2.1 mg/dL (0.0-1.0); Blood Urea Nitrogen 13 mg/dL (9-16); Calcium 9.6 mg/dL (8.4-10.2); Carbon Dioxide 27 mmol/L (22-29); Chloride 104 mmol/L (96-108); Cholesterol 203 mg/dL (<200); Estimated Glomerular Filt Rate > 60; Glucose Fasting 97 mg/dL (60-99); HDL Cholesterol 60 mg/dL (>40); LDL Cholesterol Calculated 128 mg/dL (<100); Potassium 4.1 mmol/L (3.3-5.1); Sodium 140 mmol/L (135-145); Triglycerides 78 mg/dL (<150)
[2023-06-06 12:05] LABS: PSA,Total (Free>4and<10) < 0.10 ng/mL (0.00-4.00)
== END 2023-06-06 07:53 | disposition home or self-care (01) ==
LOC: HO.HMGCLDS 07:52
PROVIDERS: PCP Internal Medicine; Visit Provider Internal Medicine
DX: Z12.5 Encounter for screening for malignant neoplasm of prostate (principal); E78.00 Pure hypercholesterolemia, unspecified; I10 Essential (primary) hypertension
CPT/HCPCS: 36415; 80053; 80061; 84153; 85025

== ENCOUNTER 2023-06-11 10:34 | Outpatient (AMB) | payer MEDICARE, OTHER, SELFPAY ==
[2023-06-11 10:46] VITALS: BP 130/76; PULSE 56; O2SAT 98; BMI 26.4
--- NOTE | 2023-06-11 10:46 | A.OFFPC_ITS ---
Vital Signs 06/11/23 10:46 06/11/23 12:23 Height 5 ft 10 in Weight 184 lb BMI 26.4 BP 130/76 139/80 Blood Pressure Location Lt brachial Lt brachial Position Sitting Sitting Pulse 56 Pulse Source Pulse Oximeter Pulse Oximetry (%) 98 Oxygen Delivery Method Room Air Intake Visit Reasons: 6m follow up Intake Note: Pt is here today for 6 months follow up visit. Allergies Sulfa (Sulfonamide Antibiotics) Adverse Reaction (Mild, Verified 06/11/23 10:55) Hives Medication List - Last Reconciled 06/11/23 by Stefanie Frias MD amlodipine 5 mg PO DAILY amlodipine 2.5 mg PO DAILY cyclosporine 0.05% (Restasis) 1 drp ophthalmic (eye) BID pantoprazole 40 mg PO DAILY polyethylene glycol 3350 (Miralax) 17 grams PO DAILY prednisolone acetate 1% 1 drp ophthalmic-Right QID simvastatin 10 mg PO BEDTIME Tobacco use date assessed: 06/11/23 Fall risk assessment: No Falls in past year Last assessed Fall Risk: 06/11/23 Dental Screening Dental Screen Date: 06/11/23 Did you have a dental visit in the last 12 months?: Yes Did you have a dental problem in the last 6 months where you did not have access to dental care?: No Was dental information given to patient?: Patient has dentist HPI 6m follow up HPI Details Patient presents for the follow-up on hypertension and hyperlipidemia. GERD is stable on pantoprazole and patient had negative EGD last year. [facility] Medical History (Updated 06/11/23 @ 12:24 by Stefanie Frias MD) 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 GERD (gastroesophageal reflux disease) Elevated cholesterol HTN (hypertension) Surgical History (Updated 06/11/23 @ 12:22 by Stefanie Frias MD) History of esophagogastroduodenoscopy (EGD) H/O colonoscopy History of right inguinal hernia repair History of prostatectomy History of bilateral cataract extraction Family History Mother Alcohol abuse Substance use disorder Mental health disorder Father Heart aneurysm Substance use disorder Brother Suicide Substance use disorder Social History 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 1. Little interest or pleasure in doing things: not at all 2. Feeling down, depressed, or hopeless: several days 3. Trouble falling or staying asleep, or sleeping too much: not at all 4. Feeling tired or having little energy: not at all 5. Poor appetite or overeating: not at all 6. Feeling bad about yourself - or that you are a failure or have let yourself or your family down: not at all 7. Trouble concentrating on things, such as reading the newspaper or watching television: not at all 8. Moving or speaking so slowly that other people could have noticed. Or the opposite - being so fidgety or restless that you have been moving around a lot more than usual: not at all 9. Thoughts that you would be better off or of hurting yourself in some way: not at all Total score: 1 Depression Screening Interpretation: Negative Depression Screening Done: Yes Source: Developed by Drs. Jim Villanueva, Martha Richardson, Julian Mensah and colleagues, with an educational dylan from [employer]. Thrive Questionnaire Date Thrive assessed: 06/11/23 I am a: Patient What is your living situation today?: I have a steady place to live Within the past 12 months, did the food you bought not last and you didn't have the money to get more?: Never true Within the past 12 months, did you worry whether your food would run out before you got money to buy more?: Never true Do you have trouble paying for medicines?: No Do you have trouble getting transportation to medical appointments?: No Do you have trouble paying your heating and electricity bill?: No Do you have trouble taking care of your child, family member or friend?: No Do you have trouble with day-to-day activities such as bathing, preparing meals, shopping, managing finances, etc.?: No Are you currently unemployed and looking for a job?: No Are you interested in more education?: No Please select the resources that you would like help with: None Currently or been in a relationship where the following occur: no concerns reported THRIVE Score: 0 AUDIT C Alcohol Use Questionnaire (AUDIT-C) 1. How often do you have a drink containing alcohol?: Never 3. How often do you have six or more drinks on one occasion?: Never Total Score: 0 EMILI-7 AMB Questionnaire EMILI-7 Date EMILI - 7 assessed: 06/11/23 Feeling nervous, anxious, or on edge: 2 = More than half the days Not being able to stop or control worryin = Not at all Worrying too much about different things: 2 = More than half the days Trouble relaxin = More than half the days Being so restless that it is hard to sit still: 1 = Several days Becoming easily annoyed or irritable: 1 = Several days Feeling afraid as if something awful might happen: 1 = Several days Total EMILI-7 score (0-4 normal; 5-9 mild; 10-14 moderate; 15-21 severe): 9 Source: Developed by Drs. Jim Villanueva, Martha Richardson, Julian Mensah and colleagues, with an educational dylan from [employer]. Review of Systems Const All systems reviewed & are unremarkable except as noted in HPI and below Reports no additional complaints Eyes Reports no additional complaints ENT Reports no additional complaints Card Reports no additional complaints Resp Reports no additional complaints GI Reports no additional complaints Physical exam (Primary Care) Vital Signs: Last Vital Signs Pulse 56 06/11/23 10:46 BP 130/76 06/11/23 10:46 Pulse Ox 98 06/11/23 10:46 Oxygen Delivery Method Room Air 06/11/23 10:46 BMI result Body Mass Index 26.4 Tobacco/Smoking Status: Tobacco use Status Tobacco use date assessed 06/11/23 06/11/23 10:57 Patient Tobacco Use Status Former Tobacco user 06/11/23 10:46 Tobacco use type Cigarette 06/11/23 10:46 e-Cigarette/Vaping Use Never Used 06/11/23 10:46 PHQ-9: PHQ-9 Score PHQ-9: Total score 1 06/11/23 10:59 Depression Screening Interpretation: Negative Thrive Assessment: Date of Thrive Assessment Date Thrive assessed 06/11/23 06/11/23 10:59 Currently or been in a relationship where the following occur: no concerns reported Const General: no acute distress HENMT Head: Yes normal to inspection Eyes General: appearance normal, both eyes and all related structures Neck Neck: Yes supple Resp Effort & Inspection: normal respiratory effort Auscultation: clear to auscultation bilaterally Cardio Rhythm: regular rhythm Heart sounds: S1 normal heart sound present and S2 normal heart sound present Assessment and Plan Assessment & Plan (1) H/O colonoscopy: Comment: 12.05.22 [facility] [place] , 5 polyps (3 at 10 mm). repeat 12/13 scheduled Code(s): Z98.890 - Other specified postprocedural states (2) GERD (gastroesophageal reflux disease): Comment: on PPI Code(s): K21.9 - Gastro-esophageal reflux disease without esophagitis Qualifiers: Esophagitis presence: with esophagitis Esophagitis bleeding: without hemorrhage Qualified Code(s): K21.00 - Gastro-esophageal reflux disease with esophagitis, without bleeding (3) HTN (hypertension): Code(s): I10 - Essential (primary) hypertension Plan: Increase amlodipine to 7.5 mg and follow-up in 6 weeks (4) Hypercholesterolemia: Code(s): E78.00 - Pure hypercholesterolemia, unspecified Plan: Continue statin Medications: New amlodipine take with Amlodipine 5 mg QD 2.5 mg PO DAILY 90 tabs 2RF Coding Level of Care Code Est Pt Level 4 (79985) Diagnoses H/O colonoscopy Z98.890 Gastroesophageal reflux disease with esophagitis without hemorrhage K21.00 Esophagitis presence: with esophagitis Esophagitis bleeding: without hemorrhage HTN (hypertension) I10 Hypercholesterolemia E78.00
[2023-06-11 12:23] VITALS: BP 139/80
== END 2023-06-11 12:25 | disposition home or self-care (01) ==
PROVIDERS: Visit Provider Internal Medicine
DX: Z98.890 Other specified postprocedural states (principal); K21.00 Gastro-esophageal reflux disease with esophagitis, without bleeding; I10 Essential (primary) hypertension; E78.00 Pure hypercholesterolemia, unspecified
CPT/HCPCS: 99214

== ENCOUNTER 2023-07-24 10:27 | Outpatient (AMB) | payer MEDICARE, OTHER, SELFPAY ==
--- NOTE | 2023-07-24 10:36 | A.OFFPC_ITS ---
Vital Signs 07/24/23 10:37 Height 5 ft 10 in Weight 184 lb BMI 26.4 BP 120/72 Blood Pressure Location Lt brachial Position Sitting Pulse 58 Pulse Source Pulse Oximeter Pulse Oximetry (%) 98 Oxygen Delivery Method Room Air Intake Visit Reasons: 6 week follow up Intake Note: Pt is here today for 6 weeks follow up visit on new med for BP. Allergies Sulfa (Sulfonamide Antibiotics) Adverse Reaction (Mild, Verified 07/24/23 10:38) Hives Tobacco use date assessed: 07/24/23 Dental Screening Dental Screen Date: 06/11/23 HPI 6 week follow up HPI Details Patient presents for the follow-up on hypertension better controlled on 7.5 mg of amlodipine. Patient has been exercising regularly, hyperlipidemia stable on simvastatin. 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 How often do you have a drink containing alcohol?: Never Total Score: 0 EMILI-7 AMB Questionnaire EMILI-7 Date EMILI - 7 assessed: 06/11/23 Source: Developed by Drs. Jim Villanueva, Martha Richardson, Julian Mensah and colleagues, with an educational dylan from [employer]. Review of Systems Const All systems reviewed & are unremarkable except as noted in HPI and below Eyes Reports no additional complaints ENT Reports no additional complaints Card Reports no additional complaints Resp Reports no additional complaints GI Reports no additional complaints Physical exam (Primary Care) Vital Signs: Last Vital Signs Pulse 58 07/24/23 10:37 BP 120/72 07/24/23 10:37 Pulse Ox 98 07/24/23 10:37 Oxygen Delivery Method Room Air 07/24/23 10:37 BMI result Body Mass Index 26.4 Tobacco/Smoking Status: Tobacco use Status Tobacco use date assessed 07/24/23 07/24/23 10:40 Patient Tobacco Use Status Former Tobacco user 07/24/23 10:40 Tobacco use type Cigarette 07/24/23 10:40 e-Cigarette/Vaping Use Never Used 07/24/23 10:40 Thrive Assessment: Date of Thrive Assessment Date Thrive assessed 06/11/23 07/24/23 10:40 Const General: no acute distress Neck Neck: Yes supple Resp Effort & Inspection: normal respiratory effort Auscultation: clear to auscultation bilaterally Cardio Rhythm: regular rhythm Heart sounds: S1 normal heart sound present and S2 normal heart sound present Assessment and Plan Assessment & Plan (1) HTN (hypertension): Code(s): I10 - Essential (primary) hypertension Plan: Continue 7.5 mg of Amlodipine (2) Hypercholesterolemia: Code(s): E78.00 - Pure hypercholesterolemia, unspecified Plan: Continue statin follow-up in 3 months Coding Level of Care Code Est Pt Level 3 (42916) Diagnoses HTN (hypertension) I10 Hypercholesterolemia E78.00
[2023-07-24 10:37] VITALS: BP 120/72; PULSE 58; O2SAT 98; BMI 26.4
== END 2023-07-24 11:30 | disposition home or self-care (01) ==
PROVIDERS: PCP Internal Medicine; Visit Provider Internal Medicine
DX: I10 Essential (primary) hypertension (principal); E78.00 Pure hypercholesterolemia, unspecified
CPT/HCPCS: 99213

== ENCOUNTER 2023-09-10 08:05 | Outpatient (AMB) | payer MEDICARE, OTHER, SELFPAY ==
--- NOTE | 2023-09-10 08:21 | AM.OFFWIN_ITS ---
Intake Vital Signs 09/10/23 08:22 Height 5 ft 10 in BP 136/80 Blood Pressure Location Rt brachial Position Sitting Pulse 70 Pulse Source Pulse Oximeter Pulse Oximetry (%) 97 Oxygen Delivery Method Room Air Intake Visit Reasons: EP cough sinus congestion heavy chest Intake Note: pt is here for cough, sinus ad chest congestion with tightness Patient Tobacco Use Status: Former Tobacco user Quit Date: ~age 48 Allergies Sulfa (Sulfonamide Antibiotics) Adverse Reaction (Mild, Verified 09/10/23 08:23) Hives Medication List - Last Reconciled 09/10/23 by JATINDER Rahman amlodipine 5 mg PO DAILY amlodipine 2.5 mg PO DAILY amoxicillin 875 mg PO BID 7 days cyclosporine 0.05% (Restasis) 1 drp ophthalmic (eye) BID pantoprazole 40 mg PO DAILY polyethylene glycol 3350 (Miralax) 17 grams PO DAILY prednisolone acetate 1% 1 drp ophthalmic-Right QID promethazine-phenylephrine 6.25-5 mg/5 mL (Promethazine VC) 5 mL PO .at bedtime PRN simvastatin 10 mg PO BEDTIME Do you need a note to return to daycare/school/sports/work: No HPI HPI Comments History of Present Illness Details 73-year-old male presents today complain ing of sinus pain and pressure, cough that has been going on for 10 days. 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, , 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 Housing: House Are you a primary progressive care manager to a significant other at home: No Do you presently have visiting nurse or other home services: No Alcohol intake: never Patient Tobacco Use Status: Former Tobacco user Quit Date: ~age 48 Tobacco use type: Cigarette e-Cigarette/Vaping Use: Never Used Second Hand Smoke Exposure: No service: No Current occupational status: retired Cognitive needs: No Hearing needs: No Vision needs: Yes Review of Systems Const All systems reviewed & are unremarkable except as noted in HPI and below Eyes Reports no additional complaints ENT Reports post nasal drip, Reports sinus pain and Reports sinus pressure Card Reports no additional complaints Resp Reports chest congestion and Reports cough Physical Exam Vital Signs: Last Vital Signs Pulse 70 09/10/23 08:22 BP 136/80 09/10/23 08:22 Pulse Ox 97 09/10/23 08:22 Oxygen Delivery Method Room Air 09/10/23 08:22 Const General: healthy appearing HEENT Head: Yes normal to inspection, Yes normocephalic and Yes atraumatic Ears: hearing grossly normal bilaterally and TM's normal bilaterally General nose exam: Normal external nose present Face and sinus: Yes sinus tenderness Throat: Yes postnasal drainage Resp Effort & Inspection: normal respiratory effort Auscultation: clear to auscultation bilaterally Cardio Rate: regular rate Rhythm: regular rhythm Heart sounds: S1 normal heart sound present and S2 normal heart sound present Assessment & Plan Assessment & Plan (1) Cough: Code(s): R05.9 - Cough, unspecified (2) Sinus pressure: Code(s): J34.89 - Other specified disorders of nose and nasal sinuses (3) Sinusitis: Code(s): J32.9 - Chronic sinusitis, unspecified Plan: Antibiotic orders and cough syrup for sleep. Patient will follow up with PCP Plan See plan Medications: New amoxicillin 875 mg PO BID 7 days 14 tabs 0RF promethazine-phenylephrine 6.25-5 mg/5 mL (Promethazine VC) 5 mL PO .at bedtime PRN 50 mL 0RF cough Coding Level of Care Code Est Pt Level 3 (45264) Diagnoses Cough R05.9 Sinus pressure J34.89 Sinusitis J32.9
[2023-09-10 08:22] VITALS: BP 136/80; PULSE 70; O2SAT 97
== END 2023-09-10 08:33 | disposition home or self-care (01) ==
PROVIDERS: PCP Internal Medicine; Visit Provider Physician Assistant Medical
DX: R05.9 Cough, unspecified (principal); J34.89 Other specified disorders of nose and nasal sinuses; J32.9 Chronic sinusitis, unspecified
CPT/HCPCS: 99213

== ENCOUNTER 2023-09-24 07:50 | Outpatient (AMB) | payer MEDICARE, OTHER, SELFPAY ==
--- NOTE | 2023-09-24 08:07 | A.OFFVIS_ITS ---
Vital Signs 09/24/23 08:10 Height 5 ft 10 in Weight 184 lb 11.958 oz BMI 26.5 BP 148/78 H Blood Pressure Location Rt brachial Position Sitting Pulse 52 Pulse Source Pulse Oximeter Pulse Oximetry (%) 96 Intake Visit Reasons: 4 month follow up Intake Note: Allan presents to the office today for a FUV; CC; Pt reports that the medication (panto) has been working well for him. Pt denies any significant sx or concerns at this time. [employer] Required: No Allergies Sulfa (Sulfonamide Antibiotics) Adverse Reaction (Mild, Verified 09/24/23 08:08) Hives HPI HPI 4 month follow up: Details: LAST VISIT GERD (gastroesophageal reflux disease) Gastritis Plan Continue pantoprazole every morning. Patient was encouraged to avoid dietary triggers and late night snacking. He will return in September and we will discuss going for colonoscopy. We will re-evaluate the need of him going for upper endoscopy. Patient is agreeable to this plan and verbalizes understanding of instructions. He was given the opportunity to ask questions and all questions answered. ? Thank you for allowing me to participate in his care Medications New polyethylene glycol 3350 (Miralax) 17 grams PO DAILY 510 grams 2RF TODAY'S VISIT Patient is here today for follow-up and to discuss going for colonoscopy. Patient reports that he has been feeling well taking pantoprazole daily and his symptoms of acid reflux are suppressed. However we would like to get patient off of the medication we will send him for upper endoscopy to re-evaluate. He has been on pantoprazole for a year now. Patient denies dyspepsia, dysphagia or odynophagia. Patient denies any melena, hematochezia, unintentional weight loss or ribbon like stools. Patient reports that he has been moving his bowels better. Patient is eating more vegetables and fruits. Patient is also using MiraLax not every day any by occasionally and states that it helps him also to move his bowels. Patient denies any issues with anesthesia in the past. No history of sleep apnea. Not on any anticoagulation medication. Suboptimal prep last colonoscopy will make sure that patient has good prep this time. 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, , 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 Housing: House Are you a primary care manager to a significant other at home: No Do you presently have visiting nurse or other home services: No Alcohol intake: never Patient Tobacco Use Status: Former Tobacco user Tobacco use type: Cigarette e-Cigarette/Vaping Use: Never Used Second Hand Smoke Exposure: No service: No Current occupational status: retired Cognitive needs: No Hearing needs: No Vision needs: Yes Review of Systems Const Denies weight gain and Denies weight loss ENT Reports no additional complaints, Denies dysphagia and Denies odynophagia Card Reports no additional complaints Resp Reports no additional complaints GI Denies abdominal pain, Denies belching, Denies melena, Denies bloating, Denies change in bowel habits, Denies dysphagia, Denies excessive flatus, Denies dyspepsia, Denies heartburn, Denies diarrhea, Denies loose stools, Denies nausea, Denies odynophagia and Denies vomiting Reports no additional complaints Musc Reports no additional complaints Neuro Reports no additional complaints Psych Reports no additional complaints Endo Reports no additional complaints Physical Exam Const General: healthy appearing, no acute distress and well developed Nutritional Appearance: well nourished Orientation/consciousness: patient oriented x3 Resp Effort & Inspection: normal respiratory effort, able to speak in complete sentences, no tracheal deviation and symmetric chest movement Auscultation: clear to auscultation bilaterally Cardio Rate: regular rate GI Inspection: Yes normal to inspection and No distended Palpation (GI): Soft to palpation, not firm, nontender and No hepatosplenomegaly present Auscultation: normal bowel sounds General: Yes no CVA tenderness Back/Spine/Pelvis Back: no CVA tenderness Skin General skin exam: elasticity normal, turgor normal and dry skin Neuro General: patient oriented x3 Psych Appearance: grossly normal Mental Status: mental status grossly normal Assessment & Plan Assessment & Plan (1) GERD (gastroesophageal reflux disease): Code(s): K21.9 - Gastro-esophageal reflux disease without esophagitis Category: Medical Qualifiers: Esophagitis bleeding: without hemorrhage Esophagitis presence: with esophagitis Qualified Code(s): K21.00 - Gastro-esophageal reflux disease with esophagitis, without bleeding (2) Tubular adenoma: Code(s): D36.9 - Benign neoplasm, unspecified site Category: Medical (3) Tubulovillous adenoma: Code(s): D36.9 - Benign neoplasm, unspecified site Category: Medical (4) Gastritis: Code(s): K29.70 - Gastritis, unspecified, without bleeding Qualifiers: Chronicity: chronic Gastritis bleeding: without bleeding Gastritis type: unspecified gastritis Qualified Code(s): K29.50 - Unspecified chronic gastritis without bleeding Plan Continue pantoprazole 40 mg for now. Patient will be sent for upper endoscopy to rule out Rea's, esophagitis, gastritis, duodenitis. Depending on results goal is to reduce pantoprazole to 20 mg daily. Patient will be go for colonoscopy suboptimal prep last colonoscopy. Patient will start Dulcolax tablets 5 days before procedure with split MiraLax prep. What to expect before during and after procedure discussed with patient. Patient denies any cardiac or respiratory symptoms. Reports to have no issues with anesthesia in the past. No history of sleep apnea. Not on any anticoagulation medication. I will see him after the procedure, sooner on as needed basis. Patient is agreeable to this plan and verbalizes understanding of instructions. He was given the opportunity to ask questions and all questions answered. Thank you for allowing me to participate in his care Medications: New bisacodyl (Dulcolax (bisacodyl)) Start taking 2 tablet every night 7 days before the procedure and 1 day before procedure take 4 tablets at noon time followed by MiraLax prep 10 mg (2 x 5 mg) PO BEDTIME 16 tabs 0RF Z12.11 - Encounter for screening for malignant neoplasm of colon polyethylene glycol 3350 (Miralax) As directed by [facility] at [facility] 238 grams PO ONCE 238 grams 0RF Z12.11 - Encounter for screening for malignant neoplasm of colon Coding Level of Care Code Est Pt Level 3 (13448) Diagnoses Gastroesophageal reflux disease with esophagitis without hemorrhage K21.00 Esophagitis bleeding: without hemorrhage Esophagitis presence: with esophagitis Tubular adenoma D36.9 Tubulovillous adenoma D36.9 Chronic gastritis without bleeding, unspecified gastritis type K29.50 Chronicity: chronic Gastritis bleeding: without bleeding Gastritis type: unspecified gastritis Time Spent (min) 30 Comment 20 minutes spent with patient and additional 10 minutes spent reviewing his records
[2023-09-24 08:10] VITALS: BP 148/78; PULSE 52; O2SAT 96; BMI 26.5
== END 2023-09-24 08:32 | disposition home or self-care (01) ==
PROVIDERS: PCP Internal Medicine; Visit Provider Nurse Practitioner Family
DX: K21.00 Gastro-esophageal reflux disease with esophagitis, without bleeding (principal); D36.9 Benign neoplasm, unspecified site; K29.50 Unspecified chronic gastritis without bleeding
CPT/HCPCS: 99213

== ENCOUNTER → 2023-09-24 07:50 | Outpatient (BNVA) | payer MEDICARE, OTHER, SELFPAY | PROVIDERS: PCP Internal Medicine; Visit Provider Nurse Practitioner Family | DX: K21.00 Gastro-esophageal reflux disease with esophagitis, without bleeding (principal); K29.50 Unspecified chronic gastritis without bleeding; Z86.010 Personal history of colon polyps; Z79.899 Other long term (current) drug therapy | CPT/HCPCS: 99212 ==

== ENCOUNTER 2023-10-22 09:04 | Outpatient (AMB) | payer MEDICARE, OTHER, SELFPAY ==
--- NOTE | 2023-10-22 09:42 | A.OFFPC_ITS ---
Vital Signs 10/22/23 09:44 Height 5 ft 10 in Weight 184 lb BMI 26.4 BP 122/66 Blood Pressure Location Rt brachial Position Sitting Pulse 55 Pulse Source Pulse Oximeter Pulse Oximetry (%) 98 Oxygen Delivery Method Room Air Intake Visit Reasons: 3M F/U Intake Note: Pt is here today for 3 months follow up visit. Allergies Sulfa (Sulfonamide Antibiotics) Adverse Reaction (Mild, Verified 10/22/23 09:45) Hives Medication List - Last Reconciled 10/22/23 by Stefanie Frias MD amlodipine 5 mg PO DAILY amlodipine 2.5 mg PO DAILY bisacodyl (Dulcolax (bisacodyl)) 10 mg (2 x 5 mg) PO BEDTIME cyclosporine 0.05% (Restasis) 1 drp ophthalmic (eye) BID pantoprazole 40 mg PO DAILY polyethylene glycol 3350 (Miralax) 17 grams PO DAILY polyethylene glycol 3350 (Miralax) 238 grams PO ONCE prednisolone acetate 1% 1 drp ophthalmic-Right QID promethazine-phenylephrine 6.25-5 mg/5 mL (Promethazine VC) 5 mL PO .at bedtime PRN simvastatin 10 mg PO BEDTIME Tobacco use date assessed: 10/22/23 Fall risk assessment: No Falls in past year Last assessed Fall Risk: 10/22/23 Dental Screening Dental Screen Date: 06/11/23 HPI 3M F/U HPI Details Patient presents for the follow-up on hypertension hyperlipidemia, controlled on current medications. He will have a 1 year follow-up colonoscopy in the fall COUNT INCLUDES THE [facility] Medical History (Updated 10/22/23 @ 10:28 by Stefanie Frias MD) 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 GERD (gastroesophageal reflux disease) Elevated cholesterol HTN (hypertension) Surgical History History of esophagogastroduodenoscopy (EGD) H/O colonoscopy History of right inguinal hernia repair History of prostatectomy History of bilateral cataract extraction Family History Mother Alcohol abuse Substance use disorder Mental health disorder Father Heart aneurysm Substance use disorder Brother Suicide Substance use disorder Social History Household Members 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, , 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 Housing: House Are you a primary continuum of care manager to a significant other at home: No Do you presently have visiting nurse or other home services: No Alcohol intake: never Patient Tobacco Use Status: Former Tobacco user Tobacco use type: Cigarette e-Cigarette/Vaping Use: Never Used Second Hand Smoke Exposure: No service: No Current occupational status: retired Cognitive needs: No Hearing needs: No Vision needs: Yes Questionnaire Thrive Questionnaire Date Thrive assessed: 06/11/23 EMILI-7 AMB Questionnaire EMILI-7 Date EMILI - 7 assessed: 06/11/23 Feeling nervous, anxious, or on edge: 0 = Not at all Not being able to stop or control worryin = Not at all Worrying too much about different things: 0 = Not at all Trouble relaxin = Not at all Being so restless that it is hard to sit still: 0 = Not at all Becoming easily annoyed or irritable: 0 = Not at all Feeling afraid as if something awful might happen: 0 = Not at all Total EMILI-7 score (0-4 normal; 5-9 mild; 10-14 moderate; 15-21 severe): 0 Source: Developed by Drs. Jim Villanueva, Martha Richardson, Julian Mensah and colleagues, with an educational dylan from [employer]. Review of Systems Const All systems reviewed & are unremarkable except as noted in HPI and below Eyes Reports no additional complaints ENT Reports no additional complaints Card Reports no additional complaints Resp Reports no additional complaints GI Reports no additional complaints Physical exam (Primary Care) Vital Signs: Last Vital Signs Pulse 55 10/22/23 09:44 BP 122/66 10/22/23 09:44 Pulse Ox 98 10/22/23 09:44 Oxygen Delivery Method Room Air 10/22/23 09:44 BMI result Body Mass Index 26.4 Tobacco/Smoking Status: Tobacco use Status Tobacco use date assessed 10/22/23 10/22/23 09:45 Patient Tobacco Use Status Former Tobacco user 10/22/23 09:43 Tobacco use type Cigarette 10/22/23 09:43 e-Cigarette/Vaping Use Never Used 10/22/23 09:43 Thrive Assessment: Date of Thrive Assessment Date Thrive assessed 02/20/24 07/02/24 09:43 Const General: no acute distress HENMT Head: Yes normal to inspection Eyes General: appearance normal, both eyes and all related structures Neck Neck: Yes supple Resp Effort & Inspection: normal respiratory effort Auscultation: clear to auscultation bilaterally Cardio Rhythm: regular rhythm Heart sounds: S1 normal heart sound present and S2 normal heart sound present Assessment and Plan Assessment & Plan (1) HTN (hypertension): Code(s): I10 - Essential (primary) hypertension Plan: Continue amlodipine (2) Hypercholesterolemia: Code(s): E78.00 - Pure hypercholesterolemia, unspecified Plan: Continue statin, check lipid profile follow-up in 6 months (3) Tubulovillous adenoma: Comment: 12/12 recheck 1 yr Code(s): D36.9 - Benign neoplasm, unspecified site Plan: Follow-up with GI for repeat colonoscopy Orders: Orders Lipid Panel Today E78.00 - Pure hypercholesterolemia, unspecified, I10 - Essential (primary) hypertension Complete Blood Count Auto Diff 6 Months E78.00 - Pure hypercholesterolemia, unspecified, I10 - Essential (primary) hypertension Comprehensive [place]. Panel Fast Today E78.00 - Pure hypercholesterolemia, unspecified, I10 - Essential (primary) hypertension Hepatitis B,C Profile Today E78.00 - Pure hypercholesterolemia, unspecified, I10 - Essential (primary) hypertension Comprehensive [place]. Panel Fast 6 Months E78.00 - Pure hypercholesterolemia, unspecified, I10 - Essential (primary) hypertension Lipid Panel 6 Months E78.00 - Pure hypercholesterolemia, unspecified, I10 - Essential (primary) hypertension Medications: Refilled pantoprazole take one tablet half an hour before breakfast 40 mg PO DAILY 90 tabs 2RF K21.9 - Gastro-esophageal reflux disease without esophagitis simvastatin 10 mg PO BEDTIME 90 tabs 3RF amlodipine 5 mg PO DAILY 90 tabs 3RF amlodipine take with Amlodipine 5 mg QD 2.5 mg PO DAILY 90 tabs 3RF Coding Level of Care Code Est Pt Level 3 (93304) Diagnoses HTN (hypertension) I10 Hypercholesterolemia E78.00 Tubulovillous adenoma D36.9
[2023-10-22 09:44] VITALS: BP 122/66; PULSE 55; O2SAT 98; BMI 26.4
== END 2023-10-22 10:19 | disposition home or self-care (01) ==
PROVIDERS: PCP Internal Medicine; Visit Provider Internal Medicine
DX: I10 Essential (primary) hypertension (principal); E78.00 Pure hypercholesterolemia, unspecified; D36.9 Benign neoplasm, unspecified site
CPT/HCPCS: 99213

== ENCOUNTER 2023-10-22 10:15 | Outpatient (REF) | payer MEDICARE, OTHER, SELFPAY ==
[2023-10-22 13:50] LABS: Alanine Aminotransferase 14 U/L (0-40); Albumin Level 4.4 g/dL (3.5-5.0); Alkaline Phosphatase 66 U/L (39-117); Anion Gap 11 (12-20); Aspartate Amino Transferase 18 U/L (5-37); Bilirubin Total 1.5 mg/dL (0.0-1.0); Blood Urea Nitrogen 15 mg/dL (9-16); Calcium 9.7 mg/dL (8.4-10.2); Carbon Dioxide 27 mmol/L (22-29); Chloride 104 mmol/L (96-108); Cholesterol 194 mg/dL (<200); Estimated Glomerular Filt Rate > 60; Glucose Fasting 112 mg/dL (60-99); HDL Cholesterol 59 mg/dL (>40); LDL Cholesterol Calculated 124 mg/dL (<100); Potassium 4.4 mmol/L (3.3-5.1); Sodium 138 mmol/L (135-145); Total Protein 6.9 g/dL (6.5-8.0); Triglycerides 55 mg/dL (<150)
[2023-10-22 15:04] LABS: HBS Num1 35.75 mIU/mL (0-7.99); HBc Num1 0.15 S/CO (0.00-0.79); Hepatitis B Core Antibody Nonreactive (Nonreactive); Hepatitis B Surface Antigen Negative (Negative); ~HepC Num1 0.14 S/CO (0.00-0.79); ~Hepatitis B Surface Antibody REACTIVE (Nonreactive); ~Hepatitis C Antibody Nonreactive (Nonreactive)
== END 2023-10-22 10:16 | disposition home or self-care (01) ==
LOC: HO.HMGCLDS 10:15
PROVIDERS: PCP Internal Medicine; Visit Provider Internal Medicine
DX: I10 Essential (primary) hypertension (principal); E78.00 Pure hypercholesterolemia, unspecified
CPT/HCPCS: 36415; 80053; 80061; 86704; 86706; 86803; 87340

== ENCOUNTER 2024-01-20 08:41 | Outpatient (REF) | payer MEDICARE, OTHER, SELFPAY ==
[2024-01-20 14:05] LABS: Influenza A PCR NEGATIVE (Negative); Influenza B PCR NEGATIVE (Negative); Resp Syncy Virus RNA Qual PCR NEGATIVE (Negative); SARS COV2 PCR INHOUSE NEGATIVE (Negative)
== END 2024-01-20 08:42 | disposition home or self-care (01) ==
LOC: HO.LNP 08:41
PROVIDERS: PCP Internal Medicine; Visit Provider Physician Assistant
DX: R09.89 Other specified symptoms and signs involving the circulatory and respiratory systems (principal); J18.9 Pneumonia, unspecified organism; H61.22 Impacted cerumen, left ear
CPT/HCPCS: 0241U; 69210; 99212

== ENCOUNTER 2024-01-20 08:41 | Outpatient (AMB) | payer MEDICARE, OTHER, SELFPAY ==
--- NOTE | 2024-01-20 10:49 | MHC.OFFWIV ---
Intake Vital Signs 01/20/24 10:50 Height 5 ft 10 in Weight 184 lb BMI 26.4 BP 130/70 Blood Pressure Location Rt brachial Position Sitting Pulse 72 Pulse Source Pulse Oximeter Temp 97.9 F Temp Source Oral Pulse Oximetry (%) 96 Intake Visit Reasons: EP Productive cough, body aches 8+ days Intake Note: pt is here for cough ongoing for awhile Patient Tobacco Use Status: Former Tobacco user Allergies Sulfa (Sulfonamide Antibiotics) Adverse Reaction (Mild, Verified 01/20/24 10:56) Hives Do you need a note to return to daycare/school/sports/work: No HPI HPI Comments History of Present Illness Details Patient is a 73-year-old male complaining of a dry cough that is productive in the morning, he states he has green and brown sputum which is thick in the morning but then his cough becomes dry during the day. He is also complaining of body aches for 8 days. He states he did have a fever of 101 degrees F on the 1st day with some chills but that has since resolved. He denies any sinus pain, ear pain, headaches, nausea, vomiting, diarrhea or shortness of breath. Patient has not tested for COVID at home. 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, , 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 Housing: House Are you a primary child care center assistant director to a significant other at home: No Do you presently have visiting nurse or other home services: No Alcohol intake: never Patient Tobacco Use Status: Former Tobacco user Tobacco use type: Cigarette e-Cigarette/Vaping Use: Never Used Second Hand Smoke Exposure: No service: No Current occupational status: retired Cognitive needs: No Hearing needs: No Vision needs: Yes Review of Systems Const All systems reviewed & are unremarkable except as noted in HPI and below Physical Exam Vital Signs: Last Vital Signs Temp 97.9 F 01/20/24 10:50 Pulse 72 01/20/24 10:50 BP 130/70 01/20/24 10:50 Pulse Ox 96 01/20/24 10:50 BMI result Body Mass Index 26.4 Const General: cooperative, healthy appearing, comfortable and no acute distress Orientation/consciousness: patient oriented x3 Limitations: no limitations HEENT Head: Yes normal to inspection Ears: hearing grossly normal bilaterally, external ears normal, TM normal on the right and unable to visualize TM (Cerumen impaction, no signs of infection once the cerumen was cleared out) on the left General nose exam: Normal external nose present, Normal nares present and No nasal discharge present Face and sinus: Yes normal facial exam and Yes sinuses nontender Mouth: Normal oral and palatal mucosa present and moist mucous membranes Throat: Yes tonsils normal, Yes uvula midline and Yes posterior oropharynx abnormal (Erythema) Eyes General: appearance normal, both eyes and all related structures Neck Neck: Yes normal visual inspection Resp Effort & Inspection: normal respiratory effort, able to speak in complete sentences, Actively coughing, no respiratory distress, not tachypneic, no tripod positioning and no use of accessory muscles Auscultation: clear to auscultation bilaterally Cardio Rate: regular rate Rhythm: regular rhythm Heart sounds: normal S1 and S2 Skin General skin exam: no rashes or lesions noted Neuro General: patient oriented x3 Extrem General: Yes normal to inspection and Yes no clubbing, cyanosis or edema Office Procedures Cerumen Removal From which ear canal was the cerumen removed: left Removal: otoscope w/curette Notes: patient tolerated procedure well, no complications and ear canal clear [id number] Wax Removal by Spoon/Curette Assessment & Plan Assessment & Plan (1) Walking pneumonia: Code(s): J18.9 - Pneumonia, unspecified organism Plan: Likely walking pneumonia as it is day 8 of his symptoms and his cough is the only symptom that remains. Vital signs are stable and patient is well-appearing. Did send flu COVID and RSV testing Plan See above Medications: New azithromycin For 250 mg dose pack: take 500 mg today (day 1), then 250 mg for 4 days (days 2-5) PO 6 tabs 0RF Coding Level of Care Code Est Pt Level 3 (61984) Diagnoses Walking pneumonia J18.9 CPT Codes Office Procedure - CPT: 81105-Gic Wax Removal by Spoon/Curette ([id number])
[2024-01-20 10:50] VITALS: BP 130/70; PULSE 72; TEMP 36.6; O2SAT 96; BMI 26.4
== END 2024-01-20 11:36 | disposition home or self-care (01) ==
PROVIDERS: PCP Internal Medicine; Visit Provider Physician Assistant
DX: J18.9 Pneumonia, unspecified organism (principal); H61.22 Impacted cerumen, left ear

== ENCOUNTER 2024-02-11 06:51 | Day surgery (SDC) | payer MEDICARE, OTHER, SELFPAY ==
[2024-02-10 07:11] VITALS: BMI 26.4
[2024-02-11] MEDS: Lactated Ringers 1,000 ML 100 ML IVCONT (08:21)
--- NOTE | 2024-02-11 08:40 | P.CONAN_ITS ---
Documented by User: Aaliyah Petersen NP 02/10/24 12:00 HPI - Anesthesia Eval Consult details Narrative: 73yo M for Upper Endoscopy and Colonoscopy [facility] Active Problems Active Problems: All Active Problems Walking pneumonia (Acute) Sinusitis (Acute) Sinus pressure (Acute) Cough (Acute) H/O colonoscopy (Acute) Dysplastic nevi (Acute) Tubulovillous adenoma (Acute) Tubular adenoma (Acute) Reducible right inguinal hernia (Acute) Hypercholesterolemia (Acute) GERD (gastroesophageal reflux disease) (Acute) Status post prostatectomy (Acute) HTN (hypertension) (Acute) Oropharyngeal dysphagia (Acute) Annual physical exam (Acute) Hx of colonoscopy (Acute) Blind left eye (Acute) Chest pain (Acute) Past Medical History Medical History (Updated 01/20/24 @ 11:29 by Dina Henao PA-C) 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 GERD (gastroesophageal reflux disease) Elevated cholesterol HTN (hypertension) Family History Family History Mother Alcohol abuse Substance use disorder Mental health disorder Father Heart aneurysm Substance use disorder Brother Suicide Substance use disorder Family history of problems with anesthesia: No Surgical History Surgical History History of esophagogastroduodenoscopy (EGD) H/O colonoscopy History of right inguinal hernia repair History of prostatectomy History of bilateral cataract extraction History of Problems with Anesthesia: No Social History Social History 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, , 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 Housing: House Are you a primary healthcare administration internship to a significant other at home: No Do you presently have visiting nurse or other home services: No Alcohol intake: never Patient Tobacco Use Status: Former Tobacco user Tobacco use type: Cigarette e-Cigarette/Vaping Use: Never Used Second Hand Smoke Exposure: No service: No Current occupational status: retired Cognitive needs: No Hearing needs: No Vision needs: Yes Meds Allergies Allergy/AdvReac Type Severity Reaction Status Date / Time Sulfa (Sulfonamide AdvReac Mild Hives Verified 01/20/24 10:56 Antibiotics) Home Medications ?Medication ?Instructions ?Recorded ?Confirmed ?Last Taken ?Type cyclosporine 0.05 % eye drops in a 1 drp ophthalmic (eye) BID 10/04/21 10/22/23 Unknown History dropperette (Restasis) prednisolone acetate 1 % eye 1 drp ophthalmic-Right QID 08/14/22 10/22/23 Unknown History drops,suspension Exam Height,Weight and Vital Signs: Height 5 ft 10 in Weight 83.461 kg Assessment and Plan Assessment Anesthesia Assessment: Chart Reviewed Final Anesthetic Review Family History of Problems with Anesthesia: No History of Problems with Anesthesia: No Documented by User: Kimberly Juárez DO 02/11/24 08:48 PMFSH Past Medical History Medical History (Updated 01/20/24 @ 11:29 by Dina Henao PA-C) 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 GERD (gastroesophageal reflux disease) Elevated cholesterol HTN (hypertension) Family History Family History Mother Alcohol abuse Substance use disorder Mental health disorder Father Heart aneurysm Substance use disorder Brother Suicide Substance use disorder Family history of problems with anesthesia: No Surgical History Surgical History History of esophagogastroduodenoscopy (EGD) H/O colonoscopy History of right inguinal hernia repair History of prostatectomy History of bilateral cataract extraction History of Problems with Anesthesia: No Social History Social History 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, , 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 Housing: House Are you a primary healthcare administration internship to a significant other at home: No Do you presently have visiting nurse or other home services: No Alcohol intake: never Patient Tobacco Use Status: Former Tobacco user Tobacco use type: Cigarette e-Cigarette/Vaping Use: Never Used Second Hand Smoke Exposure: No service: No Current occupational status: retired Cognitive needs: No Hearing needs: No Vision needs: Yes Meds Allergies Allergy/AdvReac Type Severity Reaction Status Date / Time Sulfa (Sulfonamide AdvReac Mild Hives Verified 01/20/24 10:56 Antibiotics) Home Medications ?Medication ?Instructions ?Recorded ?Confirmed ?Last Taken ?Type cyclosporine 0.05 % eye drops in a 1 drp ophthalmic (eye) BID 10/04/21 10/22/23 Unknown History dropperette (Restasis) prednisolone acetate 1 % eye 1 drp ophthalmic-Right QID 08/14/22 10/22/23 Unknow n History drops,suspension Exam Exam Date and Time: 02/11/24 0840 Height,Weight and Vital Signs: Height 5 ft 10 in Weight 83.461 kg Height 5 ft 10 in Weight 83.461 kg Airway Mallampati Class: II TM Dist: >3cm Neck ROM: Full Loose/Missing/Broken Teeth: No (patient denies any loose or broken teeth) Heart: S1S2 Lungs: CTAB Assessment and Plan Assessment Anesthesia Assessment: Anesthesia Plan Discussed and Chart Reviewed Final Anesthetic Review Family History of Problems with Anesthesia: No History of Problems with Anesthesia: No NPO: Yes ASA Class: II Final Preanesthetic Review: No Changes in Pt Med Stat, Meds/Allgs Chart Reviewed, Consent Obtained/Reviewed and Anes Risks/Benef Reviewed Patient Risk: Low Procedure Risk: Low Anesthetic Plan Anesthetic Plan: MAC: and Agree w/ Assess. and Plan Disposition: Standard PACU
[2024-02-11 08:48] VITALS: BP 140/71; PULSE 53; RESP 18; TEMP 36.6; O2SAT 96
--- NOTE | 2024-02-11 08:56 | MHC.SHP ---
Pre-Procedural Eval Section A - 24 Hr Update-Section A only Date of Service: 02/11/24 Section B - Complete if H&P > 30 days Chief Complaint: Gastro-esophageal reflux disease without esophagit Details of Present Illness: colon screening -hx of polyps Relevant Family History (Specify if Yes): No Relevant Social History: None Present Medications: see Short Stay Collaborative assessment Medical History: Significant History (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 GERD (gastroesophageal reflux disease) Elevated cholesterol HTN (hypertension)) History of Previous Operations: Relevant previous surgery/procedure and date(s) (History of esophagogastroduodenoscopy (EGD) H/O colonoscopy History of right inguinal hernia repair History of prostatectomy History of bilateral cataract extraction) Allergies: Allergies Allergy/AdvReac Type Severity Reaction Status Date / Time Sulfa (Sulfonamide AdvReac Mild Hives Verified 02/11/24 08:50 Antibiotics) Review of Systems Sugical H&P ROS: Negative: Constitution, Cardiovascular, Respiratory, Neurological, Psychiatric, Hem-Onc, Allergic/Immunologic, Gastrointestinal, Genitourinary, Musculoskeletal, Integumentary, Endocrine and Eyes/Ears/Nose/Throat Exam Surgical H&P Exam: Normal: HEENT, Normal: Heart, Normal: Lungs, Normal: Extremities, Normal: Abdomen, Normal: Skin and Normal: Neurological Plan Diagnosis/Plan: Unchanged I have reviewed the history and physical and performed a pertinent physical examination on my patient. No changes have occurred unless specified. Time Spent With Patient Time: Total time managing care of this patient today ____ minutes.
--- NOTE | 2024-02-11 08:58 | P.OPN-COLO_ITS ---
Colonoscopy Operative Note Operative Note Date of Service: 02/11/24 Narrative: Operative Information Procedure Description: EGD, Colonoscopy Indication: hx of colon polyps and GERD Anesthesia: MAC FLEXIBLE TRANSORAL UPPER GASTROINTESTINAL ENDOSCOPY AND COLONOSCOPY PROCEDURE NOTE UPPER ENDOSCOPY Consent: Indications for the procedure and potential complications of bleeding, perforation, reaction to medications and missed diagnosis were discussed with the patient and informed consent was obtained. Instrument: Olympus GIF H 190 J mid size upper endoscope Monitoring: Vital signs and clinical assessment, continuous EKG monitoring, Pulse oximetry, Carbon Dioxide monitoring and blood pressure monitoring were done throughout the procedure. Procedure: The patient was placed in the left lateral decubitis position and pre-procedure medications were administered and a bite block was placed. The endoscope was inserted into the mouth and advanced under direct vision to the third part of duodenum. A careful inspection was made as the upper endoscope was withdrawn including a retroflexed examination of the proximal stomach; Findings and interventions are described below. Findings: Larynx:normal Esophagus: GE junction at 44 cm, diaphragm hiatus at 44 cm, minimal inflammation, possible short segment barretts bx taken Stomach: Normal mucosa. Grade 2 flap valve on retroflexed examination of the cardia. Patulous LEs noted Duodenum: Normal bulb and descending duodenum, Intervention: Biopsies as noted above, COLONOSCOPY Instrument: Olympus variable stiffness pediatric scope 190L Colonoscopy Monitoring: Vital signs and clinical assessment, continuous EKG monitoring, Pulse oximetry, Carbon Dioxide monitoring and blood pressure monitoring were done throughout the procedure. Colon withdrawal time was 11 minutes. Procedure: The patient was placed in the left lateral decubitis position and pre-procedure medications were administered. After a digital rectal examination of the ano-rectum, the video colonoscope was inserted into the rectum and advanced through the colon to the cecum/TI. The colonoscope was slowly withdrawn in a retrograde panoramic fashion and the colon mucosa was carefully examined including a retroflexed view of the rectum. Findings and interventions are described below. Procedure Difficulty:moderate Findings: Terminal Ileum-normal Cecum: 3-5 mm sessile polyp removed with cold forceps Ascending Colon: moderate diverticulosis, 7-9 mm sessile polyp removed with cold snare Transverse Colon -normal Descending Colon: moderate diverticulosis Sigmoid Colon: severe diverticulosis with wide mouthed tics noted Rectum: Retroflexion with small internal hemorrhoids, grade I Anorectum - normal Colon preparation: [place] Bowel Preparation Scale Right colon; 2 Transverse colon: 2 Left colon; 2 (0 = Unprepared colon segment with mucosa not seen due to solid stool that cannot be cleared. 1 = Portion of mucosa of the colon segment seen, but other areas of the colon segment not well seen due to staining, residual stool and/or opaque liquid. 2 = Minor amount of residual staining, small fragments of stool and/or opaque liquid, but mucosa of colon segment seen well. 3 = Entire mucosa of colon segment seen well with no residual staining, small fragments of stool or opaque liquid) Impression and Post Procedure Diagnosis: Endoscopy Findings: patulous LES possible barretts Colonoscopy Findings: diverticulosis colon polyps internal hemorrhoids Plan: Await Pathology results Repeat Colonoscopy in 5 years due to polyps or earlier if clinically indicated High fiber diet leaflet avoid straining at stool, epsom salts and sitz bath, anusol supps or cream if Barretts pos then repeat EGD in 5 yrs as well Above findings were reviewed with the patient and relevant handouts were provided if indicated.
[2024-02-11 09:48] VITALS: BP 126/69; PULSE 66; RESP 16; TEMP 36.2; O2SAT 98
[2024-02-11 10:03] VITALS: BP 142/79; PULSE 54; RESP 18; TEMP 36.3; O2SAT 98
== END 2024-02-11 10:36 | disposition home or self-care (01) ==
PROVIDERS: PCP Internal Medicine; Visit Provider Internal Medicine Gastroenterology
PROC: (CPT 45385; principal; 2024-02-11 09:00)
DX: Z12.11 Encounter for screening for malignant neoplasm of colon (principal); Z86.0101 Personal history of adenomatous and serrated colon polyps; D12.0 Benign neoplasm of cecum; D12.2 Benign neoplasm of ascending colon; K57.30 Diverticulosis of large intestine without perforation or abscess without bleeding; K64.0 First degree hemorrhoids; K21.9 Gastro-esophageal reflux disease without esophagitis; K22.89 Other specified disease of esophagus; K29.50 Unspecified chronic gastritis without bleeding; K44.9 Diaphragmatic hernia without obstruction or gangrene; I10 Essential (primary) hypertension; E78.00 Pure hypercholesterolemia, unspecified; H54.62 Unqualified visual loss, left eye, normal vision right eye; Z79.899 Other long term (current) drug therapy; Z88.2 Allergy status to sulfonamides; Z98.890 Other specified postprocedural states; Z87.891 Personal history of nicotine dependence
CPT/HCPCS: 45385; 45380; 43239; 88305; 88313; J1100; J1596; J2003; J2704

== ENCOUNTER → 2024-02-11 06:51 | Outpatient (BNV) | payer MEDICARE, OTHER, SELFPAY | PROVIDERS: PCP Internal Medicine; Visit Provider Internal Medicine Gastroenterology | DX: Z12.11 Encounter for screening for malignant neoplasm of colon (principal); Z86.0100 Personal history of colon polyps, unspecified; D12.0 Benign neoplasm of cecum; D12.2 Benign neoplasm of ascending colon; K57.90 Diverticulosis of intestine, part unspecified, without perforation or abscess without bleeding; K64.0 First degree hemorrhoids; K21.9 Gastro-esophageal reflux disease without esophagitis; K22.89 Other specified disease of esophagus | CPT/HCPCS: 43239; 45380; 45385 ==

== ENCOUNTER 2024-02-25 08:10 | Outpatient (AMB) | payer MEDICARE, OTHER, SELFPAY ==
[2024-02-25 08:21] VITALS: BP 142/78; PULSE 50; O2SAT 96; BMI 26.1
--- NOTE | 2024-02-25 08:21 | A.OFFVIS_ITS ---
Vital Signs 02/25/24 08:21 Height 5 ft 10 in Weight 181 lb 10.574 oz BMI 26.1 BP 142/78 H Blood Pressure Location Lt brachial Position Sitting Pulse 50 Pulse Source Pulse Oximeter Pulse Oximetry (%) 96 Oxygen Delivery Method Room Air Intake Visit Reasons: S/p egd/colon Intake Note: Relevant Flags or Indicators ? Requires Toll Gate Tender? N Humberto presents in office today for a scheduled s/p double FUV CC; No recent labs, diagnostics, or med orders placed. ? Relevant GI Sx as reported per pt? None ? Hx of any recent surgeries? Double w/ Dr. Souza Toll Gate Tender Required: No Allergies Sulfa (Sulfonamide Antibiotics) Adverse Reaction (Mild, Verified 02/25/24 08:25) Hives HPI HPI S/p egd/colon: Details: LAST VISIT GERD (gastroesophageal reflux disease) Tubular adenoma Tubulovillous adenoma Gastritis Plan Continue pantoprazole 40 mg for now. Patient will be sent for upper endoscopy to rule out Rea's, esophagitis, gastritis, duodenitis. Depending on results goal is to reduce pantoprazole to 20 mg daily. Patient will be go for colonoscopy suboptimal prep last colonoscopy. Patient will start Dulcolax tablets 5 days before procedure with split MiraLax prep. What to expect before during and after procedure discussed with patient. Patient denies any cardiac or respiratory symptoms. Reports to have no issues with anesthesia in the past. No history of sleep apnea. Not on any anticoagulation medication. I will see him after the procedure, sooner on as needed basis. Patient is agreeable to this plan and verbalizes understanding of instructions. He was given the opportunity to ask questions and all questions answered. ? Thank you for allowing me to participate in his care Medications New bisacodyl (Dulcolax (bisacodyl)) Start taking 2 tablet every night 7 days before the procedure and 1 day before procedure take 4 tablets at noon time followed by MiraLax prep 10 mg (2 x 5 mg) PO BEDTIME 16 tabs 0RF Z12.11 polyethylene glycol 3350 (Miralax) As directed by gastroenterology department at [facility] 238 grams PO ONCE 238 grams 0RF Z12.11 UPPER ENDOSCOPY AND COLONOSCOPY Findings: Larynx:normal Esophagus: GE junction at 44 cm, diaphragm hiatus at 44 cm, minimal inflammation, possible short segment barretts bx taken Stomach: Normal mucosa. Grade 2 flap valve on retroflexed examination of the cardia. Patulous LEs noted Duodenum: Normal bulb and descending duodenum, Intervention: Biopsies as noted above, COLONOSCOPY Instrument: Olympus variable stiffness pediatric scope 190L Colonoscopy Monitoring: Vital signs and clinical assessment, continuous EKG monitoring, Pulse oximetry, Carbon Dioxide monitoring and blood pressure monitoring were done throughout the procedure. Colon withdrawal time was 11 minutes. Procedure: The patient was placed in the left lateral decubitis position and pre-procedure medications were administered. After a digital rectal examination of the ano-rectum, the video colonoscope was inserted into the rectum and advanced through the colon to the cecum/TI. The colonoscope was slowly withdrawn in a retrograde panoramic fashion and the colon mucosa was carefully examined including a retroflexed view of the rectum. Findings and interventions are described below. Procedure Difficulty:moderate Findings: Terminal Ileum-normal Cecum: 3-5 mm sessile polyp removed with cold forceps Ascending Colon: moderate diverticulosis, 7-9 mm sessile polyp removed with cold snare Transverse Colon -normal Descending Colon: moderate diverticulosis Sigmoid Colon: severe diverticulosis with wide mouthed tics noted Rectum: Retroflexion with small internal hemorrhoids, grade I Anorectum - normal Colon preparation: [place] Bowel Preparation Scale Right colon; 2 Transverse colon: 2 Left colon; 2 (0 = Unprepared colon segment with mucosa not seen due to solid stool that cannot be cleared. 1 = Portion of mucosa of the colon segment seen, but other areas of the colon segment not well seen due to staining, residual stool and/or opaque liquid. 2 = Minor amount of residual staining, small fragments of stool and/or opaque liquid, but mucosa of colon segment seen well. 3 = Entire mucosa of colon segment seen well with no residual staining, small fragments of stool or opaque liquid) Impression and Post Procedure Diagnosis: Endoscopy Findings: patulous LES possible barretts Colonoscopy Findings: diverticulosis colon polyps internal hemorrhoids Plan: Await Pathology results Repeat Colonoscopy in 5 years due to polyps or earlier if clinically indicated High fiber diet leaflet avoid straining at stool, epsom salts and sitz bath, anusol supps or cream if Barretts pos then repeat EGD in 5 yrs as well PATHOLOGY RESULTS Diagnosis A. GE junction, biopsy: - Cardiofundic-type mucosa with mild chronic inactive inflammation; no intestinal metaplasia seen. - Squamous mucosa within normal limits. B. Cecum, polypectomy: Tubular adenoma; negative for high-grade dysplasia or carcinoma. C. Colon, ascending, polypectomy: Fragments of tubular adenoma; negative for high-grade dysplasia or carcinoma TODAY'S VISIT Patient is here today for follow-up and to discuss upper endoscopy and colonoscopy results. Patient denies any ill effects from the prep, anesthesia or procedure itself. Patient reports to be feeling well since the procedure. Patient had to polyps, tubular adenoma found in cecum and ascending colon without high-grade dysplasia or carcinoma. Upper endoscopy suspected Barretts, however biopsy did not show any intestinal metaplasia. Colonoscopy recommendation in 5 years, sooner if clinically necessary. Patient currently is not complaining any GI concerning symptoms. Continues to be on pantoprazole 40 mg and his symptoms of acid reflux are suppressed. Denies dyspepsia, dysphagia or odynophagia. Denies melena, hematochezia, unintentional weight loss or ribbon like stools. Patient change his diet and is doing well. 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, , 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 Housing: House Are you a primary respiratory care specialist to a significant other at home: No Do you presently have visiting nurse or other home services: No Alcohol intake: never Patient Tobacco Use Status: Former Tobacco user Tobacco use type: Cigarette e-Cigarette/Vaping Use: Never Used Second Hand Smoke Exposure: No service: No Current occupational status: retired Cognitive needs: No Hearing needs: No Vision needs: Yes Review of Systems Const Denies weight gain and Denies weight loss ENT Reports no additional complaints, Denies dysphagia and Denies odynophagia Card Reports no additional complaints Resp Reports no additional complaints GI Denies abdominal pain, Denies belching, Denies melena, Denies bloating, Denies change in bowel habits, Denies dysphagia, Denies excessive flatus, Denies dyspepsia, Denies heartburn, Denies diarrhea, Denies loose stools, Denies nausea, Denies odynophagia and Denies vomiting Reports no additional complaints Musc Reports no additional complaints Neuro Reports no additional complaints Psych Reports no additional complaints Endo Reports no additional complaints Physical Exam Vital Signs: Last Vital Signs Pulse 50 02/25/24 08:21 BP 142/78 H 02/25/24 08:21 Pulse Ox 96 02/25/24 08:21 Oxygen Delivery Method Room Air 02/25/24 08:21 BMI result Body Mass Index 26.1 Const General: healthy appearing, no acute distress and well developed Nutritional Appearance: well nourished Orientation/consciousness: patient oriented x3 Resp Effort & Inspection: normal respiratory effort, able to speak in complete sentences, no tracheal deviation and symmetric chest movement Auscultation: clear to auscultation bilaterally Cardio Rate: regular rate GI Inspection: Yes normal to inspection and No distended Palpation (GI): Soft to palpation, not firm, nontender and No hepatosplenomegaly present Auscultation: normal bowel sounds General: Yes no CVA tenderness Back/Spine/Pelvis Back: no CVA tenderness Skin General skin exam: elasticity normal, turgor normal and dry skin Neuro General: patient oriented x3 Psych Appearance: grossly normal Mental Status: mental status grossly normal Assessment & Plan Assessment & Plan (1) GERD (gastroesophageal reflux disease): Code(s): K21.9 - Gastro-esophageal reflux disease without esophagitis Category: Medical Qualifiers: Esophagitis presence: without esophagitis Qualified Code(s): K21.9 - Gastro-esophageal reflux disease without esophagitis (2) Tubular adenoma: Code(s): D36.9 - Benign neoplasm, unspecified site Category: Medical (3) Tubulovillous adenoma: Code(s): D36.9 - Benign neoplasm, unspecified site Category: Medical (4) Status post colonoscopy: Code(s): Z98.890 - Other specified postprocedural states Plan Colonoscopy in 5 years, 2 tubular adenoma found 1 in cecum and 1 in ascending colon. Upper endoscopy as needed. Will decrease pantoprazole 20 mg daily. Patient will avoid dietary triggers and late night snacking staying upright for minimum 3 hours after meals discussed with patient. Follow-up on as needed basis. He is agreeable to this plan and verbalizes understanding of instructions. He was given the opportunity to ask questions and all questions answered. Thank you for allowing me to participate in his care Medications: New pantoprazole 20 mg PO DAILY 90 tabs 3RF Discontinued pantoprazole take one tablet half an hour before breakfast Discontinued Reason: Doctor's Order 40 mg PO DAILY 90 tabs 2RF K21.9 - Gastro-esophageal reflux disease without esophagitis Coding Level of Care Code Est Pt Level 3 (54649) Diagnoses Gastroesophageal reflux disease without esophagitis K21.9 Esophagitis presence: without esophagitis Tubular adenoma D36.9 Tubulovillous adenoma D36.9 Status post colonoscopy Z98.890 Time Spent (min) 25 Comment 15 minutes spent with patient and additional 10 minutes spent reviewing his records
== END 2024-02-25 09:30 | disposition home or self-care (01) ==
LOC: HO.HGI 08:10
PROVIDERS: PCP Internal Medicine; Visit Provider Nurse Practitioner Family
DX: K21.9 Gastro-esophageal reflux disease without esophagitis (principal); D36.9 Benign neoplasm, unspecified site; Z98.890 Other specified postprocedural states
CPT/HCPCS: 99213

== ENCOUNTER → 2024-02-25 08:10 | Outpatient (BNVA) | payer MEDICARE, OTHER, SELFPAY | PROVIDERS: PCP Internal Medicine; Visit Provider Nurse Practitioner Family | DX: K21.9 Gastro-esophageal reflux disease without esophagitis (principal); D36.9 Benign neoplasm, unspecified site; Z98.890 Other specified postprocedural states | CPT/HCPCS: 99212 ==

== ENCOUNTER 2024-05-07 07:28 | Outpatient (REF) | payer MEDICARE, OTHER, SELFPAY ==
[2024-05-07 10:12] LABS: MANUAL DIFF FLAG NO
[2024-05-07 10:20] LABS: Basophils Absolute Auto 0.1 X10*3/uL (0.0-0.2); Basophils Percent Auto 0.8 % (0-2); Eosinophils Absolute Auto 0.4 X10*3/uL (0.0-0.4); Eosinophils Percent Auto 4.7 % (0-4); Hematocrit 45.1 % (42.0-52.0); Hemoglobin 15.3 g/dl (14.0-18.0); Imm Gran Abs Auto 0.02 X10*3/uL (0.00-0.03); Imm Gran Pct Auto 0.3 % (0.0-0.4); Lymphocytes Absolute Auto 1.4 X10*3/uL (1.2-4.9); Lymphocytes Percent Auto 17.9 % (20-40); Mean Corpuscular HGB Conc 33.9 g/dl (31.0-36.0); Mean Corpuscular Hemoglobin 30.5 pg (27.0-33.0); Mean Platelet Volume 11.3 fL (9.4-12.4); Monocytes Absolute Auto 0.7 X10*3/uL (0.1-1.2); Monocytes Percent Auto 9.2 % (2-11); Neutrophils Absolute Auto 5.2 x10*3/uL (2.0-8.3); Neutrophils Percent Auto 67.1 % (45-73); Platelet Count 203 X10*3/uL (160-400); Red Blood Count 5.01 X10*6/uL (4.60-5.80); Red Cell Distribution Width 13.8 % (11.0-16.0); White Blood Count 7.7 X10*3/uL (4.8-10.8)
[2024-05-07 10:54] LABS: Alanine Aminotransferase 15 U/L (0-40); Albumin Level 4.3 g/dL (3.5-5.0); Alkaline Phosphatase 67 U/L (39-117); Anion Gap 8 (12-20); Aspartate Amino Transferase 21 U/L (5-37); Blood Urea Nitrogen 11 mg/dL (9-16); Carbon Dioxide 29 mmol/L (22-29); Chloride 107 mmol/L (96-108); Cholesterol 200 mg/dL (<200); Estimated Glomerular Filt Rate > 60; Glucose Fasting 103 mg/dL (60-99); HDL Cholesterol 62 mg/dL (>40); LDL Cholesterol Calculated 123 mg/dL (<100); Potassium 3.4 mmol/L (3.3-5.1); Sodium 141 mmol/L (135-145); Total Protein 6.9 g/dL (6.5-8.0); Triglycerides 77 mg/dL (<150)
== END 2024-05-07 07:29 | disposition home or self-care (01) ==
LOC: HO.HMGCLDS 07:28
PROVIDERS: PCP Internal Medicine; Visit Provider Internal Medicine
DX: E78.00 Pure hypercholesterolemia, unspecified (principal); I10 Essential (primary) hypertension
CPT/HCPCS: 36415; 80053; 80061; 85025

== ENCOUNTER 2024-05-12 13:22 | Outpatient (AMB) | payer MEDICARE, OTHER, SELFPAY ==
--- NOTE | 2024-05-12 13:57 | MHC.PC.OV ---
Vital Signs 05/12/24 14:20 Height 5 ft 10 in Weight 180 lb BMI 25.8 BP 122/70 Blood Pressure Location Rt brachial Position Sitting Pulse 57 Pulse Source Pulse Oximeter Pulse Oximetry (%) 97 Oxygen Delivery Method Room Air Intake Visit Reasons: PE Intake Note: Pt is here today for PE. Allergies Sulfa (Sulfonamide Antibiotics) Adverse Reaction (Mild, Verified 05/12/24 14:22) Hives Medication List - Last Reconciled 05/12/24 by Stefanie Frias MD cyclosporine 0.05% (Restasis) 1 drp ophthalmic (eye) BID pantoprazole 20 mg PO DAILY polyethylene glycol 3350 (Miralax) 17 grams PO DAILY promethazine-phenylephrine 6.25-5 mg/5 mL (Promethazine VC) 5 mL PO .at bedtime PRN simvastatin 10 mg PO BEDTIME Tobacco use date assessed: 05/12/24 Fall risk assessment: No Falls in past year Last assessed Fall Risk: 05/12/24 Dental Screening Dental Screen Date: 05/12/24 Did you have a dental visit in the last 12 months?: Yes Did you have a dental problem in the last 6 months where you did not have access to dental care?: No Was dental information given to patient?: Patient has dentist HPI PE HPI Details Pt presents for PE. 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 GERD (gastroesophageal reflux disease) Elevated cholesterol HTN (hypertension) Surgical History (Updated 05/12/24 @ 15:14 by Stefanie Frias MD) History of esophagogastroduodenoscopy (EGD) H/O colonoscopy History of right inguinal hernia repair History of prostatectomy History of bilateral cataract extraction Family History Mother Alcohol abuse Substance use disorder Mental health disorder Father Heart aneurysm Substance use disorder Brother Suicide Substance use disorder Social History 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 1. Little interest or pleasure in doing things: not at all 2. Feeling down, depressed, or hopeless: not at all 3. Trouble falling or staying asleep, or sleeping too much: not at all 4. Feeling tired or having little energy: not at all 5. Poor appetite or overeating: not at all 6. Feeling bad about yourself - or that you are a failure or have let yourself or your family down: not at all 7. Trouble concentrating on things, such as reading the newspaper or watching television: not at all 8. Moving or speaking so slowly that other people could have noticed. Or the opposite - being so fidgety or restless that you have been moving around a lot more than usual: not at all 9. Thoughts that you would be better off or of hurting yourself in some way: not at all Total score: 0 Depression Screening Interpretation: Negative Depression Screening Done: Yes 49495 - PHQ-9 Billing: Yes Source: Developed by Drs. Jim Villanueva, Martha Richardson, Julian Mensah and colleagues, with an educational dylan from [employer]. Thrive Questionnaire Date Thrive assessed: 05/12/24 I am a: Patient What is your living situation today?: I have a steady place to live Within the past 12 months, did the food you bought not last and you didn't have the money to get more?: Never true Within the past 12 months, did you worry whether your food would run out before you got money to buy more?: Never true Do you have trouble paying for medicines?: No Do you have trouble getting transportation to medical appointments?: No Do you have trouble paying your heating and electricity bill?: No Do you have trouble taking care of your child, family member or friend?: No Do you have trouble with day-to-day activities such as bathing, preparing meals, shopping, managing finances, etc.?: No Are you currently unemployed and looking for a job?: No Are you interested in more education?: No Please select the resources that you would like help with: None Currently or been in a relationship where the following occur: No concerns reported THRIVE Score: 0 AUDIT C Alcohol Use Questionnaire (AUDIT-C) 1. How often do you have a drink containing alcohol?: Never 3. How often do you have six or more drinks on one occasion?: Never Total Score: 0 EMILI-7 AMB Questionnaire EMILI-7 Date EMILI - 7 assessed: 05/12/24 Feeling nervous, anxious, or on edge: 0 = Not at all Not being able to stop or control worryin = Not at all Worrying too much about different things: 0 = Not at all Trouble relaxin = Not at all Being so restless that it is hard to sit still: 0 = Not at all Becoming easily annoyed or irritable: 0 = Not at all Feeling afraid as if something awful might happen: 0 = Not at all Total EMILI-7 score (0-4 normal; 5-9 mild; 10-14 moderate; 15-21 severe): 0 Source: Developed by Drs. Jim Villanueva, Martha Richardson, Julian Mensah and colleagues, with an educational dylan from [employer]. EMILI-7 Assessment Billing EMILI-7 Assessment Tool: EMILI-7 Assessment 69366 Review of Systems Const All systems reviewed & are unremarkable except as noted in HPI and below Eyes Reports no additional complaints ENT Reports no additional complaints Card Reports no additional complaints Resp Reports no additional complaints GI Reports no additional complaints Reports no additional complaints Physical exam (Primary Care) Vital Signs: Last Vital Signs Pulse 57 05/12/24 14:20 BP 122/70 05/12/24 14:20 Pulse Ox 97 05/12/24 14:20 Oxygen Delivery Method Room Air 05/12/24 14:20 BMI result Body Mass Index 25.8 Tobacco/Smoking Status: Tobacco use Status Tobacco use date assessed 05/12/24 05/12/24 14:31 Patient Tobacco Use Status Former Tobacco user 05/12/24 13:57 Tobacco use type Cigarette 05/12/24 13:57 e-Cigarette/Vaping Use Never Used 05/12/24 13:57 PHQ-9: PHQ-9 Score PHQ-9: Total score 0 05/12/24 13:57 Depression Screening Interpretation: Negative Thrive Assessment: Date of Thrive Assessment Date Thrive assessed 05/12/24 05/12/24 14:35 Currently or been in a relationship where the following occur: No concerns reported Const General: no acute distress HENMT Head: Yes normal to inspection Ears: hearing grossly normal bilaterally Face and sinus: Yes normal facial exam Throat: Yes posterior oropharynx normal Neck Neck: Yes supple Resp Effort & Inspection: normal respiratory effort Auscultation: clear to auscultation bilaterally Cardio Rhythm: regular rhythm Heart sounds: S1 normal heart sound present and S2 normal heart sound present GI Inspection: Yes normal to inspection Palpation (GI): Soft to palpation Percussion: Yes normal to percussion Auscultation: normal bowel sounds Coding Level of Care Code Est Pt Prev Care >65y(79724) Diagnoses H/O colonoscopy Z98.890 HTN (hypertension) I10 Annual physical exam Z00.00 Additional Codes EMILI-7 Assessment Billing - EMILI-7 Assessment Tool: EMILI-7 Assessment 03992 ([id number]) PHQ-9 - 33954 - PHQ-9 Billing: Yes ([id number]) Assessment & Plan Assessment & Plan (1) H/O colonoscopy: Comment: 12.05.22 [facility] [place] , 5 polyps (3 at 10 mm). repeat 02/12 2 polyps, repeat 5 yrs Code(s): Z98.890 - Other specified postprocedural states Category: Surgical Plan: REPEAT COLONOSCOPY IN 5 YEARS (2) HTN (hypertension): Code(s): I10 - Essential (primary) hypertension Category: Medical Plan: Increase amlodipine from 7.5 mg to 10 mg follow-up in 2 months (3) Annual physical exam: Code(s): Z00.00 - Encounter for general adult medical examination without abnormal findings Category: Medical Plan: Well-balanced diet regular exercise discussed with the patient Medications: New amlodipine 10 mg PO DAILY 90 tabs 3RF Refilled simvastatin 10 mg PO BEDTIME 90 tabs 3RF Discontinued amlodipine Discontinued Reason: Doctor's Order 5 mg PO DAILY 90 tabs 3RF amlodipine take with Amlodipine 5 mg QD Discontinued Reason: Doctor's Order 2.5 mg PO DAILY 90 tabs 3RF
[2024-05-12 14:20] VITALS: BP 122/70; PULSE 57; O2SAT 97; BMI 25.8
== END 2024-05-12 15:16 | disposition home or self-care (01) ==
PROVIDERS: PCP Internal Medicine; Visit Provider Internal Medicine
DX: Z00.00 Encounter for general adult medical examination without abnormal findings (principal); Z98.890 Other specified postprocedural states; I10 Essential (primary) hypertension

== ENCOUNTER → 2024-05-12 13:22 | Outpatient (BNVA) | payer MEDICARE, OTHER, SELFPAY | PROVIDERS: PCP Internal Medicine; Visit Provider Internal Medicine | DX: Z00.00 Encounter for general adult medical examination without abnormal findings (principal); I10 Essential (primary) hypertension; Z98.890 Other specified postprocedural states | CPT/HCPCS: 96127; 99397 ==

== ENCOUNTER 2024-05-26 09:46 | Outpatient (AMB) | payer MEDICARE, OTHER, SELFPAY ==
[2024-05-26 10:01] VITALS: BP 118/74; PULSE 59; RESP 18; TEMP 36.7; O2SAT 96; BMI 26.4
--- NOTE | 2024-05-26 10:01 | A.OFFPC_ITS ---
Vital Signs 05/26/24 10:01 Height 5 ft 10 in Weight 184 lb BMI 26.4 BP 118/74 Blood Pressure Location Rt brachial Position Sitting Respiration 18 Pulse 59 Pulse Source Pulse Oximeter Temp 98.1 F Temp Source Oral Pulse Oximetry (%) 96 Oxygen Delivery Method Room Air Intake Visit Reasons: Cataract surgery on 06/10/24 Intake Note: Pt is here today for a pre op visit. Pt is having cataract surgery on 06/10/[address] Hair. Allergies Sulfa (Sulfonamide Antibiotics) Adverse Reaction (Mild, Verified 05/26/24 10:25) Hives Tobacco use date assessed: 05/26/24 Dental Screening Dental Screen Date: 05/12/24 HPI Cataract surgery on 06/10/24 HPI Details Patient presents for a preop for left eye surgery. Hypertension hyperlipidemia are controlled on current medications. 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, , 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 Housing: House Are you a primary child caregiver private home to a significant other at home: No Do you presently have visiting nurse or other home services: No Alcohol intake: never Patient Tobacco Use Status: Former Tobacco user Tobacco use type: Cigarette e-Cigarette/Vaping Use: Never Used Second Hand Smoke Exposure: No service: No Current occupational status: retired Cognitive needs: No Hearing needs: No Vision needs: Yes Questionnaire Thrive Questionnaire Date Thrive assessed: 05/06/24 I am a: Patient What is your living situation today?: I have a steady place to live Within the past 12 months, did the food you bought not last and you didn't have the money to get more?: Never true Within the past 12 months, did you worry whether your food would run out before you got money to buy more?: Never true Do you have trouble paying for medicines?: No Do you have trouble getting transportation to medical appointments?: No Do you have trouble paying your heating and electricity bill?: No Do you have trouble taking care of your child, family member or friend?: No Do you have trouble with day-to-day activities such as bathing, preparing meals, shopping, managing finances, etc.?: No Are you currently unemployed and looking for a job?: No Are you interested in more education?: No Please select the resources that you would like help with: None Currently or been in a relationship where the following occur: No concerns reported THRIVE Score: 0 EMILI-7 AMB Questionnaire EMILI-7 Date EMILI - 7 assessed: 05/12/24 Source: Developed by Drs. Jim Villanueva, Martha Richardson, Julian Mensah and colleagues, with an educational dylan from [email or web address]. Review of Systems Const All systems reviewed & are unremarkable except as noted in HPI and below ENT Reports no additional complaints Card Reports no additional complaints Resp Reports no additional complaints GI Reports no additional complaints Physical exam (Primary Care) Vital Signs: Last Vital Signs Temp 98.1 F 05/26/24 10:01 Pulse 59 05/26/24 10:01 Resp 18 05/26/24 10:01 BP 118/74 05/26/24 10:01 Pulse Ox 96 05/26/24 10:01 Oxygen Delivery Method Room Air 05/26/24 10:01 BMI result Body Mass Index 26.4 Tobacco/Smoking Status: Tobacco use Status Tobacco use date assessed 05/26/24 05/26/24 10:04 Patient Tobacco Use Status Former Tobacco user 05/26/24 10:02 Tobacco use type Cigarette 05/26/24 10:02 e-Cigarette/Vaping Use Never Used 05/26/24 10:02 Thrive Assessment: Date of Thrive Assessment Date Thrive assessed 05/06/24 05/26/24 10:02 Currently or been in a relationship where the following occur: No concerns reported Const General: no acute distress HENMT Head: Yes normal to inspection Ears: hearing grossly normal bilaterally Neck Neck: Yes no lymphadenopathy and Yes supple Resp Effort & Inspection: normal respiratory effort Auscultation: clear to auscultation bilaterally Cardio Rhythm: regular rhythm Heart sounds: S1 normal heart sound present and S2 normal heart sound present GI Inspection: Yes normal to inspection Coding Level of Care Code Est Pt Level 4 (15646) Diagnoses HTN (hypertension) I10 Hypercholesterolemia E78.00 Cataract H26.9 Assessment & Plan Assessment & Plan (1) HTN (hypertension): Code(s): I10 - Essential (primary) hypertension Category: Medical Plan: Continue amlodipine (2) Hypercholesterolemia: Code(s): E78.00 - Pure hypercholesterolemia, unspecified Category: Medical Plan: Continue simvastatin (3) Cataract: Code(s): H26.9 - Unspecified cataract Category: Medical Plan: Patient is medically cleared for cataract surgery
== END 2024-05-26 10:41 | disposition home or self-care (01) ==
PROVIDERS: PCP Internal Medicine; Visit Provider Internal Medicine
DX: I10 Essential (primary) hypertension (principal); E78.00 Pure hypercholesterolemia, unspecified; H26.9 Unspecified cataract

== ENCOUNTER → 2024-05-26 09:46 | Outpatient (BNVA) | payer MEDICARE, OTHER, SELFPAY | PROVIDERS: PCP Internal Medicine; Visit Provider Internal Medicine | DX: Z01.818 Encounter for other preprocedural examination (principal); H26.9 Unspecified cataract; I10 Essential (primary) hypertension; E78.00 Pure hypercholesterolemia, unspecified | CPT/HCPCS: 99212 ==

== ENCOUNTER 2024-06-18 08:08 | Emergency (ER) | payer MEDICARE, OTHER, SELFPAY ==
[2024-06-18 08:11] VITALS: BP 132/76; BP 138/77; PULSE 59; RESP 18; TEMP 36.4; O2SAT 97; O2SAT 98; BMI 27.3
--- NOTE | 2024-06-18 08:25 | ED.GENADULT ---
HPI - General Adult General Chief complaint: Eye Problems Stated complaint: L EYE PAIN,S/P CATARACT SURG, D/C THIS AM PER EMS Time Seen by Provider: 06/18/24 08:24 Source: patient and EMS Mode of arrival: EMS Limitations: no limitations History of Present Illness ED Provider: Suzi Viera PA-C HPI narrative: Patient is a 74 year old assigned male at with a history of HTN, GERD, and multiple left eye procedures / issues presenting to the emergency department today with a post operative left eye complaint. Patient states that he has had numerous surgeries in his left eye since he was 12 year old after being injured by the thorn of a pear tree. Patient states that he has had a corneal transplant, lens correction, and other procedures including a lens replacement surgery on 06/11/2024. Patient states that everything was OK until the evening of 06/16/2024 when he felt a rubber band snap behind his left eye. Patient states that his vision has decreased to a pin hole in the left eye. Patient states that he saw his box repairer in clinic on 06/19/2024 and they discussed the possibility of a retinal specialist getting involved in his care then sent him home with antibiotic, steroid, and anti-inflammatory drops. Patient states that this morning he woke up with a very sharp, ice pike like, pain in his left eye that is not improving. Patient states he called the emergency number of his surgeon, Dr. Hair, but has not heard back. Patient denies any dizziness, lightheadedness, abdominal pain, nausea, vomiting, fever, chills, blurry vision, double vision, loss of vision, chest pain, difficulty breathing, shortness of breath, back pain, night sweats, pain with urination, increased urinary frequency, increased urinary urgency, blood in his urine or stool, syncope or a near syncopal episode, recent trauma or falls, bowel incontinence, bladder incontinence, or any other complaints at this time. Onset (ago): day(s) (2) Location: eyes and left Relieving factors: none Exacerbating factors: none Associated symptoms: denies other symptoms Treatments prior to arrival: other (ketorolac drops, prednisolone drops, ofloxacin abx drops) Related Data Home Medications ?Medication ?Instructions ?Recorded ?Confirmed cyclosporine 0.05 % eye drops in a 1 drp ophthalmic (eye) BID 10/04/21 05/26/24 dropperette (Restasis) loratadine 10 mg tablet (Claritin) 10 mg PO DAILY 05/26/24 05/26/24 Previous Rx's ?Medication ?Instructions ?Recorded polyethylene glycol 3350 17 17 g PO DAILY #510 grams 06/03/23 gram/dose oral powder (Miralax) promethazine-phenylephrine 6.25 5 ml PO .at bedtime PRN cough #50 09/10/23 mg-5 mg/5 mL oral syrup mL (Promethazine VC) pantoprazole 20 mg tablet,delayed 20 mg PO DAILY #90 tabs 02/25/24 release amlodipine 10 mg tablet 10 mg PO DAILY #90 tabs 05/12/24 simvastatin 10 mg tablet 10 mg PO BEDTIME #90 tabs 05/12/24 Allergies Allergy/AdvReac Type Severity Reaction Status Date / Time Sulfa (Sulfonamide AdvReac Mild Hives Verified 06/18/24 08:12 Antibiotics) Review of Systems Constitutional: Constitutional: Reports no additional constitutional complaints, Denies chills, Denies fever(s) and Denies night sweats Eyes: Eyes: Reports no additional eye complaints, Denies blurry vision, Denies diplopia and Denies eye discharge Comments: left eye pain decreased in left eye vision ENT: Denies dizziness Cardiovascular: Cardiovascular: Reports no additional cardiovascular complaints, Denies chest pain, Denies lightheadedness, Denies Loss of Consciousness and Denies dyspnea Respiratory: Respiratory: Reports no additional respiratory complaints and Denies dyspnea Gastrointestinal: Gastrointestinal: Reports no additional gastrointestinal complaints, Denies abdominal pain, Denies melena, Denies hematochezia, Denies change in bowel habits and Denies change in stool character Genitourinary: Genitourinary: Reports no additional male genitourinary complaints, Denies hematuria, Denies oliguria, Denies difficulty urinating, Denies dysuria, Denies urinary frequency, Denies urinary hesitancy, Denies urinary incontinence and Denies urinary urgency Musculoskeletal: Musculoskeletal: Reports no additional musculoskeletal complaints, Denies numbness and Denies tingling Neurologic: Denies dizziness, Denies numbness and Denies tingling Psychiatric: Psychiatric: Reports no additional psychiatric complaints Endocrine: Endocrine: Reports no additional endocrine complaints Hematologic/Lymphatic: Hematologic/Lymphatic: Reports no additional hematologic/lymphatic complaints Allergic/Immunologic: Allergic/Immunologic: Reports no additional allergic/immunologic complaints PMFSH Past Medical History Attestation statement: The following information was validated with the patient. 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 GERD (gastroesophageal reflux disease) Elevated cholesterol HTN (hypertension) Surgical History History of esophagogastroduodenoscopy (EGD) H/O colonoscopy History of right inguinal hernia repair History of prostatectomy History of bilateral cataract extraction Family History Family History Mother Alcohol abuse Substance use disorder Mental health disorder Father Heart aneurysm Substance use disorder Brother Suicide Substance use disorder Social History Social History Household Members Other:: 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, , 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 Housing: House Are you a primary health care sanitary technician to a significant other at home: No Do you presently have visiting nurse or other home services: No Alcohol intake: never Patient Tobacco Use Status: Former Tobacco user Tobacco use type: Cigarette e-Cigarette/Vaping Use: Never Used Second Hand Smoke Exposure: No Advance Directives: Yes Advance Directives Information Provided: No Advance Directives on File: No Do you have a plan to hurt others: No Plan service: No Current occupational status: retired Cognitive needs: No Hearing needs: No Vision needs: Yes Physical Exam ED Vital Signs: Vital Signs - 24 hr 06/18/24 08:11 Temperature 97.6 F Pulse Rate 59 Respiratory Rate 18 Blood Pressure 138/77 Pulse Oximetry 98 Oxygen Delivery Method Room Air BMI result Body Mass Index 27.3 Const General: cooperative, no acute distress, alert and awake Nutritional Appearance: well nourished Orientation/consciousness: patient oriented x3 Limitations: no limitations HENMT Head: Yes normal to inspection and Yes atraumatic Ears: hearing grossly normal bilaterally and external ears normal General nose exam: Normal external nose present, no nasal discharge noted and no epistaxis Face and sinus: Yes normal facial exam, No abrasion and No laceration Mouth: Normal oral and palatal mucosa present, no drooling and no muffled voice Eyes Other: Periorbital: periorbital findings normal Eyelids: Yes eyelids normal Neck Neck: Yes normal visual inspection, Yes full ROM and Yes no lymphadenopathy Chest Chest palpation & inspection: normal inspection of the chest Resp Effort & Inspection: normal respiratory effort and able to speak in complete sentences GI Inspection: Yes normal to inspection Neuro General: patient oriented x3, moves all extremities and CN's II-XI intact bilaterally Cognition (Neuro): normal cognition Extrem General: Yes normal to inspection, Yes full ROM and Yes capillary refill normal Psych Appearance: grossly normal Mental Status: mental status grossly normal Affect: normal affect Attitude: cooperative Thought process: Normal thought process present Thought content: Normal thought content present Insight: Good insight present (Psych) Medications Administered Discontinued Medications Generic Name Dose Route Start Last Admin Trade Name Dhruv PRN Reason Stop Dose Admin Hydromorphone HCl 1 mg 06/18/24 09:39 06/18/24 09:44 Hydromorphone Hcl 1 Mg/Ml Syringe IVPUSH 06/18/24 09:40 1 mg ONCE ONE Administration Protocol Ondansetron HCl 4 mg 06/18/24 09:31 06/18/24 09:44 Ondansetron Hcl 4 Mg/2 Ml Vial IVPUSH 06/18/24 09:32 4 mg ONCE ONE Administration Medical Decision Making Medical Decision Making [facility] Narrative: Patient is a 74 year old assigned male at with a history of HTN, GERD, and multiple left eye procedures / issues presenting to the emergency department today with a post operative left eye complaint. Patient's physical exam was as noted in the physical exam portion of this note. Patient's right eye pressure was 22. I was unable to measure the patient's left eye pressure. Patient's blood work was unremarkable. I spoke to the patient's eye surgeon, Dr. Hair, who expressed concern the patient has a Chorodial vs. Choroidal rupture. He recommended having the patient's drive him to the [facility] and have him seen today. He stated I should remind the patient to continue the drops he was prescribed on 06/17. I explained my physical exam findings as well as all test results to the patient. I answered all questions asked by the patient. Patient received IV dilaudid which, upon re-evaluation, he stated it helped his symptoms significantly. I stressed the importance of the patient taking his medication as directed (either prescribed or as the over the counter packaging recommends). I stressed the importance of the patient following up with his eye surgeon, today as noted previously, and his primary care provider. I stressed the importance of the patient returning to the emergency department immediately if his symptoms were to worsen or if he were to develop any dizziness, shortness of breath, difficulty breathing, chest pain, blurry vision, loss of vision, nausea, vomiting, abdominal pain, fever, chills, back pain, or any other complaints. Patient verbalized agreement and understanding with this treatment plan and discharge. Differential Diagnosis Differential Diagnoses: The differential diagnosis associated with the presentation includes Left eye pain Left eye post operative complication Retinal detachment Choroidal Choroidal rupture Admission/Observation Consideration of admission/observation: Escalation of care including admission/observation considered Patient would have been admitted to the hospital had his work up had any findings where hospital admission was appropriate and his clinical presentation warranted hospital admission. Lab Data [facility] Lab Attestation statement: I reviewed the patient's lab results. My interpretation of these results are in the [facility] Rationale portion of this note. 06/18/24 09:34 06/18/24 09:34 Labs: Lab Results 06/18/24 Range/Units 09:34 WBC 4.9 (4.8-10.8) X10*3/uL RBC 4.96 (4.60-5.80) X10*6/uL Hgb 15.0 (14.0-18.0) g/dl Hct 43.2 (42.0-52.0) % MCV 87.1 (80.0-98.0) fL MCH 30.2 (27.0-33.0) pg MCHC 34.7 (31.0-36.0) g/dl RDW 13.4 (11.0-16.0) % Plt Count 193 (160-400) X10*3/uL MPV 10.4 (9.4-12.4) fL Immature Gran % (Auto) 0.4 (0.0-0.4) % Neut % (Auto) 68.2 (45-73) % Lymph % (Auto) 15.8 L (20-40) % [place] % (Auto) 9.9 (2-11) % Eos % (Auto) 4.7 H (0-4) % Baso % (Auto) 1.0 (0-2) % Lymph # (Auto) 0.8 L (1.2-4.9) X10*3/uL [place] # (Auto) 0.5 (0.1-1.2) X10*3/uL Eos # (Auto) 0.2 (0.0-0.4) X10*3/uL Baso # (Auto) 0.1 (0.0-0.2) X10*3/uL Abs Immat Gran (auto) 0.02 (0.00-0.03) X10*3/uL Absolute Neuts (auto) 3.3 (2.0-8.3) x10*3/uL Absolute Nucleated RBC 0.000 (0.0-0.012) X10*3/uL Nucleated RBC % (auto) 0.0 (0.0-0.2) /100WBC PT 11.0 (10.9-12.4) SEC INR 0.9 (0.9-1.1) APTT 31.4 (26.0-36.8) SEC Sodium 138 (135-145) mmol/L Potassium 4.3 D (3.3-5.1) mmol/L Chloride 107 (96-108) mmol/L Carbon Dioxide 25 (22-29) mmol/L Anion Gap 10 L (12-20) BUN 13 (9-16) mg/dL Creatinine 0.83 (0.5-1.4) mg/dL Estim Creat Clear Calc 78.1 Estimated GFR > 60 Random Glucose 115 (60-115) mg/dL Calcium 8.9 (8.4-10.2) mg/dL Magnesium 2.4 (1.6-2.6) mg/dL Total Bilirubin 1.4 H (0.0-1.0) mg/dL AST 23 (5-37) U/L ALT 18 (0-40) U/L Alkaline Phosphatase 66 (39-117) U/L C-Reactive Protein 0.19 (< or = 0.50) mg/dL Total Protein 7.1 (6.5-8.0) g/dL Albumin 4.3 (3.5-5.0) g/dL Independent Historian Clinical information obtained from an independent historian. History obtained from or confirmed by: EMS (EMS provided additional history and confirmed the history provided by the patient.) Prescription Management I considered prescription management with: Pain Medication (patient told to continue pain drops as directed by eye surgeon) and Antibiotic (patient told to continue ABX drops as directed by eye surgeon) Discharge Plan Discharge Clinical Impression: Acute eye pain Patient Disposition: Home, Self-Care Instructions: Eye Pain (ED) Additional Instructions: Dr. Hair is expecting you at his [facility] office TODAY (06/18/2024). Please head directly there. Continue using your eye drops as directed (including the antibiotic drops). Return to the emergency department immediately if your symptoms worsen or if you develop any dizziness, shortness of breath, difficulty breathing, chest pain, blurry vision, loss of vision, nausea, vomiting, abdominal pain, fever, chills, back pain, or any other complaints. Prescriptions: No Action promethazine-phenylephrine [Promethazine VC] 6.25-5 mg/5 mL syrup 5 ml PO .at bedtime PRN (Reason: cough) Qty: 50 0RF cyclosporine [Restasis] 0.05 % dropperette 1 drp ophthalmic (eye) BID polyethylene glycol 3350 [Miralax] 17 gram/dose powder 17 g PO DAILY Qty: 510 2RF pantoprazole 20 mg tablet,delayed release (DR/EC) 20 mg PO DAILY Qty: 90 3RF amlodipine 10 mg tablet 10 mg PO DAILY Qty: 90 3RF simvastatin 10 mg tablet 10 mg PO BEDTIME Qty: 90 3RF loratadine [Claritin] 10 mg tablet 10 mg PO DAILY Referrals: Stefanie Frias MD [Primary Care Provider] - Print Language: Azeri
[2024-06-18 09:39] LABS: MANUAL DIFF FLAG NO
[2024-06-18 09:42] LABS: Basophils Absolute Auto 0.1 X10*3/uL (0.0-0.2); Eosinophils Absolute Auto 0.2 X10*3/uL (0.0-0.4); Eosinophils Percent Auto 4.7 % (0-4); Hematocrit 43.2 % (42.0-52.0); Imm Gran Abs Auto 0.02 X10*3/uL (0.00-0.03); Imm Gran Pct Auto 0.4 % (0.0-0.4); Lymphocytes Absolute Auto 0.8 X10*3/uL (1.2-4.9); Lymphocytes Percent Auto 15.8 % (20-40); Mean Corpuscular HGB Conc 34.7 g/dl (31.0-36.0); Mean Corpuscular Hemoglobin 30.2 pg (27.0-33.0); Mean Corpuscular Volume 87.1 fL (80.0-98.0); Mean Platelet Volume 10.4 fL (9.4-12.4); Monocytes Absolute Auto 0.5 X10*3/uL (0.1-1.2); Monocytes Percent Auto 9.9 % (2-11); Neutrophils Absolute Auto 3.3 x10*3/uL (2.0-8.3); Neutrophils Percent Auto 68.2 % (45-73); Platelet Count 193 X10*3/uL (160-400); Red Blood Count 4.96 X10*6/uL (4.60-5.80); Red Cell Distribution Width 13.4 % (11.0-16.0); White Blood Count 4.9 X10*3/uL (4.8-10.8)
[2024-06-18] MEDS: HYDROmorphone HCl 1 MG/ML SYRINGE IVPUSH (09:44)
[2024-06-18] MEDS: ondansetron HCL 4 MG/2 ML VIAL IVPUSH (09:44)
[2024-06-18 09:50] LABS: INTERNATIONAL NORM RATIO 0.9 (0.9-1.1)
[2024-06-18 09:52] LABS: Partial Thromboplastin Time 31.4 SEC (26.0-36.8)
[2024-06-18 09:57] LABS: Alanine Aminotransferase 18 U/L (0-40); Albumin Level 4.3 g/dL (3.5-5.0); Alkaline Phosphatase 66 U/L (39-117); Anion Gap 10 (12-20); Aspartate Amino Transferase 23 U/L (5-37); Bilirubin Total 1.4 mg/dL (0.0-1.0); Blood Urea Nitrogen 13 mg/dL (9-16); C Reactive Protein 0.19 mg/dL (< or = 0.50); Calcium 8.9 mg/dL (8.4-10.2); Carbon Dioxide 25 mmol/L (22-29); Chloride 107 mmol/L (96-108); Creatinine Clr Calc Pharmacy 78.1; Estimated Glomerular Filt Rate > 60; Glucose Random 115 mg/dL (60-115); Magnesium 2.4 mg/dL (1.6-2.6); Potassium 4.3 mmol/L (3.3-5.1); Sodium 138 mmol/L (135-145); Total Protein 7.1 g/dL (6.5-8.0)
--- NOTE | 2024-06-18 10:00 | PC.NURSE ---
20gIV placed in the left forearm - labs obtained/sent to lab. medication administered per provider order. effectiveness pending.
[2024-06-18 10:19] VITALS: BP 169/67; PULSE 50; RESP 17; TEMP 36.6; O2SAT 96
[2024-06-18 10:19] LABS: Erythrocyte Sedimentation Rate 3 MM/HR (0-15)
[2024-06-18 10:24] VITALS: BP 119/65; PULSE 61; RESP 18; TEMP 36.6; O2SAT 95
[2024-06-18 10:26] VITALS: BP 119/65; PULSE 61; RESP 18; TEMP 36.6; O2SAT 95
--- NOTE | 2024-06-18 10:30 | PC.NURSE ---
ED provider reached out to pt's cable way operator. pt will be transferred to cable way operator's office via private car by daughter, farzaneh.
== END 2024-06-18 10:39 | disposition home or self-care (01) ==
PROVIDERS: Physician Assistant Medical; Emergency Provider Emergency Medicine; PCP Internal Medicine
DX: H57.12 Ocular pain, left eye (principal); I10 Essential (primary) hypertension; E78.00 Pure hypercholesterolemia, unspecified; R07.9 Chest pain, unspecified; H54.40 Blindness, one eye, unspecified eye; Z79.899 Other long term (current) drug therapy; Z79.02 Long term (current) use of antithrombotics/antiplatelets; Z90.79 Acquired absence of other genital organ(s)
CPT/HCPCS: 36415; 80053; 83735; 85025; 85610; 85652; 85730; 86140; 96374; 96375; 99283; 99284; J1171; J2405

== ENCOUNTER 2024-07-06 11:05 | Emergency (ER) | payer MEDICARE, OTHER, SELFPAY ==
--- NOTE | ~2024-07-06 | XR_ITS ---
EXAMINATION: XR HIP 1 VIEW LEFT WITH PELVIS HISTORY: pain x 3 weeks COMPARISON: There are no prior studies for comparison. FINDINGS: A single AP view of the pelvis and two views of the left hip are submitted. Osseous mineralization is normal. There is no fracture or dislocation. There is moderate to severe joint space narrowing. The soft tissues are unremarkable. XR/XR hip LT w PEL1V IMPRESSION: Moderate to severe joint space narrowing. Electronically signed by: Jim Chakraborty MD 07/06/2024 12:20 PM EDT
[2024-07-06 11:50] VITALS: BP 150/71; PULSE 62; RESP 20; TEMP 37; O2SAT 95; BMI 23.4
--- NOTE | 2024-07-06 11:51 | ED_ITS ---
HPI - General Adult General Chief complaint: Extremity Injury, Lower Stated complaint: hip pain Time Seen by Provider: 07/06/24 16:44 History of Present Illness ED Provider: Vicente STEVENSON narrative: The patient is a 74-year-old male who presents because of left hip pain. He says he has had this pain for several weeks. He says that during the last month and a half he has had several surgeries on his left eye. This has interfered with his ability to address this left hip pain. He says he was prescribed oxycodone because of pain regarding his left eye surgeries. He says that the oxycodone really did not help his left hip pain. The left hip pain is present when he moves around but he also has pain when he is not moving. He denies any injury or trauma. He has had no fever, sweats, chills. He has been walking without a cane or a walker. Related Data Home Medications ?Medication ?Instructions ?Recorded ?Confirmed cyclosporine 0.05 % eye drops in a 1 drp ophthalmic (eye) BID 10/04/21 05/26/24 dropperette (Restasis) loratadine 10 mg tablet (Claritin) 10 mg PO DAILY 05/26/24 05/26/24 Previous Rx's ?Medication ?Instructions ?Recorded polyethylene glycol 3350 17 17 g PO DAILY #510 grams 06/03/23 gram/dose oral powder (Miralax) promethazine-phenylephrine 6.25 5 ml PO .at bedtime PRN cough #50 09/10/23 mg-5 mg/5 mL oral syrup mL (Promethazine VC) pantoprazole 20 mg tablet,delayed 20 mg PO DAILY #90 tabs 02/25/24 release amlodipine 10 mg tablet 10 mg PO DAILY #90 tabs 05/12/24 simvastatin 10 mg tablet 10 mg PO BEDTIME #90 tabs 05/12/24 Allergies Allergy/AdvReac Type Severity Reaction Status Date / Time Sulfa (Sulfonamide AdvReac Mild Hives Verified 07/06/24 11:53 Antibiotics) Review of Systems 2 Review of Systems: Yes all other systems are reviewed and are negative PMF Past Medical History Medical History 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 GERD (gastroesophageal reflux disease) Elevated cholesterol HTN (hypertension) Surgical History History of esophagogastroduodenoscopy (EGD) H/O colonoscopy History of right inguinal hernia repair History of prostatectomy History of bilateral cataract extraction Family History Family History Mother Alcohol abuse Substance use disorder Mental health disorder Father Heart aneurysm Substance use disorder Brother Suicide Substance use disorder Social History Social History Household Members 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, , 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 Housing: House Are you a primary pharmacy care coordinator to a significant other at home: No Do you presently have visiting nurse or other home services: No Alcohol intake: never Patient Tobacco Use Status: Former Tobacco user Tobacco use type: Cigarette e-Cigarette/Vaping Use: Never Used Second Hand Smoke Exposure: No service: No Current occupational status: retired Cognitive needs: No Hearing needs: No Vision needs: Yes Physical Exam ED Vital Signs: Vital Signs - 24 hr 07/06/24 16:25 07/06/24 18:31 Temperature 97.8 F 97.8 F Pulse Rate 64 64 Respiratory Rate 14 14 Blood Pressure 156/70 H 156/70 H Pulse Oximetry 97 97 Oxygen Delivery Method Room Air Room Air BMI result Body Mass Index 23.4 Const Other: The patient is a slim 74-year-old male who was sitting in a chair. He did not seem obviously acutely ill or in distress although he said he was in lot of pain even when he was not moving. [facility] Other: The face symmetrical. Mucous membranes moist. Eyes Other: The right eye appears normal within normal size and shaped pupil. The left eye has a large, abnormal appearing pupil with some slight conjunctival injection. Neck Neck: Yes normal visual inspection, Yes full ROM, Yes no lymphadenopathy and Yes no JVD Resp Effort & Inspection: normal respiratory effort Auscultation: clear to auscultation bilaterally Cardio Rate: regular rate Rhythm: regular rhythm Heart sounds: S1 normal heart sound present and S2 normal heart sound present GI Other: Abdomen is soft nontender Skin Other: skin is dry and unremarkable Neuro Other: the patient is awake and alert with normal mental status. He has a distinctly abnormal left pupil which I suspect is a result of his chronic left eye problems and his recent surgeries. Otherwise his cranial nerves are intact. He moves his arms normally. He moves his right leg normally. He seems to have weakness in the left leg that is related to pain. Otherwise he seems neurologically intact. Extrem Other: No obvious deformity to the extremities. He does not seem to take lead tender with palpation in the region of the left hip although he does seem to have pain with manipulation the left hip. I can put the hip through a decent range of motion however. No significant problems in the knee or ankle. No peripheral edema. Course Course Course Narrative: This is a rapid medical exam performed by Kostas Velásquez NP: Additional HPI, ROS, PE not included below will be deferred to primary provider. Patient is a 74-year-old male with pmhx HTN, GERD, s/p prostatectomy presenting with 3 weeks of severe left hip pain. Denies fall or other trauma. Worst with ambulation, no radiation. Rates 10/10. Alternating heat and ice, was on oxycontin for an eye issue, did not help the hip pain. Plan: xray Medications Administered Discontinued Medications Generic Name Dose Route Start Last Admin Trade Name Freq PRN Reason Stop Dose Admin Ketorolac Tromethamine 30 mg 07/06/24 17:02 07/06/24 17:08 Ketorolac Tromethamine 30 Mg/Ml Vial IM 07/06/24 17:03 30 mg ONCE ONE Administration Medical Decision Making Medical Decision Making [facility] Narrative: Patient is a 74-year-old male who has been experiencing a lot of problems with his left eye and has had recent surgeries on his left eye over the last several weeks. During this time he has also had pain in his left hip that he has in toward has a secondary complaint to his left eye. There has been no injury. He he has had no fevers. He has not been using a cane or a walker but has been having pain getting around. He has an x-ray that shows some joint space narrowing of the left hip. Whether the patient's pain is completely related to hip arthritis or whether this is more of some other kind of musculoskeletal pain is not clear. It is surprising that he has pain at rest as well as when he is moving. He has a normal CRP of 0.15 and a normal ESR of 2 after several weeks of pain. My suspicion for any acutely dangerous infectious or ischemic process as a cause of his pain is extremely low. He was given injection of ketorolac in the emergency room with significant improvement in his pain. Since he has been having all of these eye problems recently I spoke to the patient about use of nonsteroidal anti-inflammatories. He says that he was told by his eye doctor he should not use anti-inflammatories with any regularity until of this week ( in 3 days time). The patient will therefore be discharged with no particular recommendations except to keep his appointment with his eye doctor tomorrow, discuss use of nonsteroidal anti-inflammatories, and follow up with Orthopedics. Interestingly the patient has been taking oxycodone during this time because of left eye pain and he did not feel the oxycodone helps his left hip pain at all. Lab Data 07/06/24 17:07 07/06/24 17:07 Labs: Lab Results 07/06/24 Range/Units 17:07 WBC 11.4 H (4.8-10.8) X10*3/uL RBC 4.97 (4.60-5.80) X10*6/uL Hgb 15.3 (14.0-18.0) g/dl Hct 43.6 (42.0-52.0) % MCV 87.7 (80.0-98.0) fL MCH 30.8 (27.0-33.0) pg MCHC 35.1 (31.0-36.0) g/dl RDW 13.7 (11.0-16.0) % Plt Count 211 (160-400) X10*3/uL MPV 11.0 (9.4-12.4) fL Immature Gran % (Auto) 0.4 (0.0-0.4) % Neut % (Auto) 90.8 H (45-73) % Lymph % (Auto) 5.1 L (20-40) % [place] % (Auto) 3.6 (2-11) % Eos % (Auto) 0.1 (0-4) % Baso % (Auto) 0.0 (0-2) % Lymph # (Auto) 0.6 L (1.2-4.9) X10*3/uL [place] # (Auto) 0.4 (0.1-1.2) X10*3/uL Eos # (Auto) 0.0 (0.0-0.4) X10*3/uL Baso # (Auto) 0.0 (0.0-0.2) X10*3/uL Abs Immat Gran (auto) 0.04 H (0.00-0.03) X10*3/uL Absolute Neuts (auto) 10.3 H (2.0-8.3) x10*3/uL Absolute Nucleated RBC 0.000 (0.0-0.012) X10*3/uL Nucleated RBC % (auto) 0.0 (0.0-0.2) /100WBC Smear Tech's Comments VERIFIED ESR 2 (0-15) MM/HR Sodium 138 (135-145) mmol/L Potassium 4.7 (3.3-5.1) mmol/L Chloride 103 (96-108) mmol/L Carbon Dioxide 27 (22-29) mmol/L Anion Gap 13 (12-20) BUN 14 (9-16) mg/dL Creatinine 0.79 (0.5-1.4) mg/dL Estim Creat Clear Calc 89.9 Estimated GFR > 60 Random Glucose 134 H (60-115) mg/dL Calcium 9.3 (8.4-10.2) mg/dL Total Bilirubin 1.7 H (0.0-1.0) mg/dL Direct Bilirubin 0.5 (0.0-0.5) mg/dL AST 20 (5-37) U/L ALT 53 H (0-40) U/L Alkaline Phosphatase 62 (39-117) U/L C-Reactive Protein 0.15 (< or = 0.50) mg/dL Total Protein 7.4 (6.5-8.0) g/dL Albumin 4.5 (3.5-5.0) g/dL Discharge Plan Discharge Clinical Impression: Left hip pain Patient Disposition: Home, Self-Care Additional Instructions: Your x-ray suggests some arthritis in your left hip. Your blood work is very reassuring. I think you will probably need to follow up with the orthopedist regarding this pain. Please contact the orthopedic office tomorrow morning for a follow up appointment. If there is any delay in seeing an orthopedist please follow up with your regular doctor. For the short term I would take acetaminophen (Tylenol), 2 extra-strength tablets at a time up to 3 times per day. I think you might also get benefit from using ibuprofen but this should be cleared with your microarray specialist. If your microarray specialist feels you may take ibuprofen I would recommend taking 400 mg every 6 hours as needed. Please use a cane or a walker as well to help you get around. Return to the emergency room if significantly worse. Prescriptions: No Action promethazine-phenylephrine [Promethazine VC] 6.25-5 mg/5 mL syrup 5 ml PO .at bedtime PRN (Reason: cough) Qty: 50 0RF cyclosporine [Restasis] 0.05 % dropperette 1 drp ophthalmic (eye) BID polyethylene glycol 3350 [Miralax] 17 gram/dose powder 17 g PO DAILY Qty: 510 2RF pantoprazole 20 mg tablet,delayed release (DR/EC) 20 mg PO DAILY Qty: 90 3RF amlodipine 10 mg tablet 10 mg PO DAILY Qty: 90 3RF simvastatin 10 mg tablet 10 mg PO BEDTIME Qty: 90 3RF loratadine [Claritin] 10 mg tablet 10 mg PO DAILY Referrals: [facility] Orth[facility] Surgeons [Provider Group] (left hip pain) Stefanie Frias MD [Primary Care Provider] - (left hip pain) Interventions: ED Discharge Assessment Last Done: 07/06/24 18:31 Discharge Date/Time: 07/06/24 18:31 Print Language: British
[2024-07-06 16:25] VITALS: BP 156/70; PULSE 64; RESP 14; TEMP 36.6; O2SAT 97
[2024-07-06] MEDS: Ketorolac Tromethamine 30 MG/ML VIAL IM (17:08)
--- NOTE | 2024-07-06 17:13 | PC.NURSE ---
pt medicated per MAR
[2024-07-06 17:19] LABS: Eosinophils Percent Auto 0.1 % (0-4); Hematocrit 43.6 % (42.0-52.0); Hemoglobin 15.3 g/dl (14.0-18.0); Imm Gran Abs Auto 0.04 X10*3/uL (0.00-0.03); Imm Gran Pct Auto 0.4 % (0.0-0.4); Lymphocytes Absolute Auto 0.6 X10*3/uL (1.2-4.9); Lymphocytes Percent Auto 5.1 % (20-40); MANUAL DIFF FLAG SCAN; Mean Corpuscular HGB Conc 35.1 g/dl (31.0-36.0); Mean Corpuscular Hemoglobin 30.8 pg (27.0-33.0); Mean Corpuscular Volume 87.7 fL (80.0-98.0); Monocytes Absolute Auto 0.4 X10*3/uL (0.1-1.2); Monocytes Percent Auto 3.6 % (2-11); Neutrophils Absolute Auto 10.3 x10*3/uL (2.0-8.3); Neutrophils Percent Auto 90.8 % (45-73); Platelet Count 211 X10*3/uL (160-400); Red Blood Count 4.97 X10*6/uL (4.60-5.80); Red Cell Distribution Width 13.7 % (11.0-16.0); SCAN SMEAR FLAG 1; White Blood Count 11.4 X10*3/uL (4.8-10.8)
[2024-07-06 17:30] LABS: Alanine Aminotransferase 53 U/L (0-40); Albumin Level 4.5 g/dL (3.5-5.0); Alkaline Phosphatase 62 U/L (39-117); Anion Gap 13 (12-20); Aspartate Amino Transferase 20 U/L (5-37); Bilirubin Direct 0.5 mg/dL (0.0-0.5); Bilirubin Total 1.7 mg/dL (0.0-1.0); Blood Urea Nitrogen 14 mg/dL (9-16); C Reactive Protein 0.15 mg/dL (< or = 0.50); Calcium 9.3 mg/dL (8.4-10.2); Carbon Dioxide 27 mmol/L (22-29); Chloride 103 mmol/L (96-108); Creatinine Clr Calc Pharmacy 89.9; Estimated Glomerular Filt Rate > 60; Glucose Random 134 mg/dL (60-115); Potassium 4.7 mmol/L (3.3-5.1); Sodium 138 mmol/L (135-145); Total Protein 7.4 g/dL (6.5-8.0)
[2024-07-06 18:12] LABS: Erythrocyte Sedimentation Rate 2 MM/HR (0-15)
[2024-07-06 18:31] VITALS: BP 156/70; PULSE 64; RESP 14; TEMP 36.6; O2SAT 97
[2024-07-06 19:18] LABS: SLIDE REVIEW VERIFIED
== END 2024-07-06 18:31 | disposition home or self-care (01) ==
PROVIDERS: Emergency Provider Emergency Medicine; PCP Internal Medicine
DX: M25.552 Pain in left hip (principal); R10.2 Pelvic and perineal pain; Z79.899 Other long term (current) drug therapy; Z87.891 Personal history of nicotine dependence
CPT/HCPCS: 36415; 73502; 80048; 80076; 85025; 85652; 86140; 96372; 99284; J1885

== ENCOUNTER → 2024-07-06 11:52 | Outpatient (BNV) | payer MEDICARE, OTHER, SELFPAY | PROVIDERS: PCP Internal Medicine; Visit Provider Radiology Diagnostic Radiology | DX: M25.552 Pain in left hip (principal) | CPT/HCPCS: 73502 ==

== ENCOUNTER 2024-07-16 08:49 | Outpatient (AMB) | payer MEDICARE, OTHER, SELFPAY ==
[2024-07-16 09:02] VITALS: BP 132/74; PULSE 72; RESP 18; TEMP 36.9; O2SAT 97; BMI 23.1
--- NOTE | 2024-07-16 09:02 | MHC.PC.OV ---
Vital Signs 07/16/24 09:02 Height 6 ft 1 in Weight 175 lb BMI 23.1 BP 132/74 Blood Pressure Location Lt brachial Position Sitting Respiration 18 Pulse 72 Pulse Source Pulse Oximeter Temp 98.5 F Temp Source Oral Pulse Oximetry (%) 97 Oxygen Delivery Method Room Air Intake Visit Reasons: 2 month follow up Intake Note: Pt is here today for 2 months follow up visit. Pt states that he had emergency surgery for his L eye and he has been in the ER for his L hip pain that is still on going. Allergies Sulfa (Sulfonamide Antibiotics) Adverse Reaction (Mild, Verified 07/16/24 09:03) Hives Medication List - Last Reconciled 07/16/24 by Stefanie Frias MD amlodipine 10 mg PO DAILY cyclosporine 0.05% (Restasis) 1 drp ophthalmic (eye) BID loratadine (Claritin) 10 mg PO DAILY pantoprazole 20 mg PO DAILY polyethylene glycol 3350 (Miralax) 17 grams PO DAILY prednisone 20 mg PO DAILY promethazine-phenylephrine 6.25-5 mg/5 mL (Promethazine VC) 5 mL PO .at bedtime PRN simvastatin 10 mg PO BEDTIME Tobacco use date assessed: 07/16/24 Fall risk assessment: No Falls in past year Last assessed Fall Risk: 07/16/24 Dental Screening Dental Screen Date: 05/12/24 HPI 2 month follow up HPI Details Pt presents complaining of 2 months of left lateral thigh pain worse when sitting or lying down slightly better while walking. Patient had 3 eye surgeries in the last month. He was seen in walk-in and x-ray showed moderate to severe osteoarthritis of left hip. Hypertension is controlled on medication. 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, , 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 Housing: House Are you a primary respiratory care practitioner to a significant other at home: No Do you presently have visiting nurse or other home services: No Alcohol intake: never Patient Tobacco Use Status: Former Tobacco user Tobacco use type: Cigarette e-Cigarette/Vaping Use: Never Used Second Hand Smoke Exposure: No service: No Current occupational status: retired Cognitive needs: No Hearing needs: No Vision needs: Yes Questionnaire Thrive Questionnaire Date Thrive assessed: 05/06/24 I am a: Patient What is your living situation today?: I have a steady place to live Within the past 12 months, did the food you bought not last and you didn't have the money to get more?: Never true Within the past 12 months, did you worry whether your food would run out before you got money to buy more?: Never true Do you have trouble paying for medicines?: No Do you have trouble getting transportation to medical appointments?: No Do you have trouble paying your heating and electricity bill?: No Do you have trouble taking care of your child, family member or friend?: No Do you have trouble with day-to-day activities such as bathing, preparing meals, shopping, managing finances, etc.?: No Are you currently unemployed and looking for a job?: No Are you interested in more education?: No Please select the resources that you would like help with: None Currently or been in a relationship where the following occur: No concerns reported THRIVE Score: 0 EMILI-7 AMB Questionnaire EMILI-7 Date EMILI - 7 assessed: 05/12/24 Source: Developed by Drs. Jim Villanueva, Martha Richardson, Julian Mensah and colleagues, with an educational dylan from [employer]. Review of Systems Const All systems reviewed & are unremarkable except as noted in HPI and below Eyes Reports no additional complaints ENT Reports no additional complaints Card Reports no additional complaints Resp Reports no additional complaints GI Reports no additional complaints Reports no additional complaints Physical exam (Primary Care) Vital Signs: Last Vital Signs Temp 98.5 F 07/16/24 09:02 Pulse 72 07/16/24 09:02 Resp 18 07/16/24 09:02 BP 132/74 07/16/24 09:02 Pulse Ox 97 07/16/24 09:02 Oxygen Delivery Method Room Air 07/16/24 09:02 BMI result Body Mass Index 23.1 Tobacco/Smoking Status: Tobacco use Status Tobacco use date assessed 07/16/24 07/16/24 09:06 Patient Tobacco Use Status Former Tobacco user 07/16/24 09:02 Tobacco use type Cigarette 07/16/24 09:02 e-Cigarette/Vaping Use Never Used 07/16/24 09:02 Thrive Assessment: Date of Thrive Assessment Date Thrive assessed 05/06/24 07/16/24 09:02 Currently or been in a relationship where the following occur: No concerns reported Const General: no acute distress HENMT Head: Yes normal to inspection Neck Neck: Yes supple Resp Effort & Inspection: normal respiratory effort Auscultation: clear to auscultation bilaterally Cardio Rhythm: regular rhythm Heart sounds: S1 normal heart sound present and S2 normal heart sound present Extrem Other: There is significantly decreased range of motion in the left hip, there is no focal tenderness over left trochanteric bursa, straight leg rising is 90 degrees bilaterally Coding Level of Care Code Est Pt Level 4 (55713) Diagnoses Osteoarthritis of left hip M16.12 HTN (hypertension) I10 Assessment & Plan Assessment & Plan (1) Osteoarthritis of left hip: Code(s): M16.12 - Unilateral primary osteoarthritis, left hip Category: Medical Plan: Prednisone taper is prescribed. patient is referred to physical therapy. he has an appointment with orthopedic surgeon next month (2) HTN (hypertension): Code(s): I10 - Essential (primary) hypertension Category: Medical Plan: Continue amlodipine Orders: Orders PT Evaluation and Treatment Today M16.12 - Unilateral primary osteoarthritis, left hip Medications: New prednisone 3 tabl qd for 3 days, then 2 tabl qd x 3 days, 1 tabl qd 20 mg PO DAILY 18 tabs 0RF
== END 2024-07-16 09:58 | disposition home or self-care (01) ==
LOC: HO.HMCC 08:50
PROVIDERS: PCP Internal Medicine; Visit Provider Internal Medicine
DX: M16.12 Unilateral primary osteoarthritis, left hip (principal); I10 Essential (primary) hypertension

== ENCOUNTER → 2024-07-16 08:49 | Outpatient (BNVA) | payer MEDICARE, OTHER, SELFPAY | PROVIDERS: PCP Internal Medicine; Visit Provider Internal Medicine | DX: M16.12 Unilateral primary osteoarthritis, left hip (principal); I10 Essential (primary) hypertension | CPT/HCPCS: 99212 ==

== ENCOUNTER 2024-07-24 08:39 | Outpatient (AMB) | payer MEDICARE, OTHER, SELFPAY ==
--- NOTE | 2024-07-24 08:44 | A.OFFVIS_ITS ---
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 Patient reports he has been having pain since 06/13/24. Patient reports that he hasn't fallen. He states that his PCP prescribed him prendnisone which gave him relief. Patient notices that his pain is all the time. His pain is on the lateral aspect of the hip. IMPRESSION: Moderate to severe joint space narrowing. 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 The onset of pain was in May, concurrent with a series of emergency eye surgeries for retinal repair. The hip pain located in the left buttock caused significant difficulty with ambulation, prioritizing eye care initially. There was no prior history of hip pain or injury before this episode. Bursitis was diagnosed by the primary care physician and managed effectively with a course of oral prednisone, leading to a notable decrease in pain severity. The patient maintains no history of related back pain, numbness, or radiating symptoms, with the pain localized to the buttock area. 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, , 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 Housing: House Are you a primary care director rn to a significant other at home: No Do you presently have visiting nurse or other home services: No Alcohol intake: never Patient Tobacco Use Status: Former Tobacco user Tobacco use type: Cigarette e-Cigarette/Vaping Use: Never Used Second Hand Smoke Exposure: No service: No Current occupational status: retired Cognitive needs: No Hearing needs: No Vision needs: Yes Review of Systems Const All systems reviewed & are unremarkable except as noted in HPI and below Physical Exam Const General: cooperative, healthy appearing and no acute distress Resp Effort & Inspection: normal respiratory effort and able to speak in complete sentences Cardio Rate: regular rate Peripheral pulses: Peripheral pulses 2+ throughout Skin Lesions: no lesions Rashes: no rashes Extrem Other: Left hip: Slight stiffness with internal external rotation. Difficulty performing straight leg raise. No tenderness to palpation over the greater trochanteric bursa. 4/5 strength with resisted hip flexion, knee extension, abduction, and abduction. NVI. Assessment & Plan Assessment & Plan (1) Osteoarthritis of left hip: Code(s): M16.12 - Unilateral primary osteoarthritis, left hip Category: Medical Plan Plan includes scheduling a cortisone injection into the hip under image guidance given the improvement observed with prednisone, anticipating similar benefits with localized corticosteroid administration. Should the injection not yield significant improvement, further diagnostics focusing on spine and sacroiliac joint assessments will be considered. Follow-up appointments will be integral to monitor the response to these interventions and reevaluate symptomatology to gu luz elena any subsequent treatment pathways. X-rays of the left hip and pelvis which were obtained on 07/06/2024 were reviewed by Katina krishnamurthy PA-C, revealed moderate to severe osteoarthritis left hi p. Patient was informed and verbally consented to the use of an ambient scribe for clinic note documentation during this visit. Coding Level of Care Code New Pt Level 3 (15115) Diagnoses Osteoarthritis of left hip M16.12
== END 2024-07-24 09:02 | disposition home or self-care (01) ==
LOC: HO.HOS 08:40
PROVIDERS: PCP Internal Medicine; Visit Provider Physician Assistant
DX: M16.12 Unilateral primary osteoarthritis, left hip (principal)
CPT/HCPCS: 99203

== ENCOUNTER → 2024-07-24 08:39 | Outpatient (BNVA) | payer MEDICARE, OTHER, SELFPAY | PROVIDERS: PCP Internal Medicine; Visit Provider Physician Assistant | DX: M16.12 Unilateral primary osteoarthritis, left hip (principal) | CPT/HCPCS: 99202 ==

== ENCOUNTER 2024-07-30 13:46 | Outpatient (AMB) | payer MEDICARE, OTHER, SELFPAY ==
--- NOTE | 2024-07-30 13:51 | MHC.PC.OV ---
Vital Signs 07/30/24 13:52 Height 6 ft 1 in Weight 172 lb BMI 22.7 BP 124/64 Blood Pressure Location Rt brachial Position Sitting Respiration 18 Pulse 94 Pulse Source Pulse Oximeter Temp 99.3 F Temp Source Oral Pulse Oximetry (%) 95 Oxygen Delivery Method Room Air Intake Visit Reasons: EP-cough, sinus issue Intake Note: Pt is here today for a sick visit. Pt c/o sinus congestion cough. Allergies Sulfa (Sulfonamide Antibiotics) Adverse Reaction (Mild, Verified 07/30/24 13:55) Hives Medication List - Last Reconciled 07/30/24 by Stefanie Frias MD amlodipine 10 mg PO DAILY azithromycin For 250 mg dose pack: take 500 mg today (day 1), then 250 mg for 4 days (days 2-5) PO cyclosporine 0.05% (Restasis) 1 drp ophthalmic (eye) BID loratadine (Claritin) 10 mg PO DAILY pantoprazole 20 mg PO DAILY polyethylene glycol 3350 (Miralax) 17 grams PO DAILY promethazine-phenylephrine 6.25-5 mg/5 mL (Promethazine VC) 5 mL PO .at bedtime PRN simvastatin 10 mg PO BEDTIME Tobacco use date assessed: 07/16/24 Dental Screening Dental Screen Date: 05/12/24 HPI EP-cough, sinus issue HPI Details Patient complains of 5 day for sinus congestion postnasal drip productive cough with yellow sputum generalized body ache low-grade fever. 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 GERD (gastroesophageal reflux disease) Elevated cholesterol HTN (hypertension) Surgical History History of esophagogastroduodenoscopy (EGD) H/O colonoscopy History of right inguinal hernia repair History of prostatectomy History of bilateral cataract extraction Family History Mother Alcohol abuse Substance use disorder Mental health disorder Father Heart aneurysm Substance use disorder Brother Suicide Substance use disorder Social History Household Members 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, , 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 Housing: House Are you a primary transitional care liaison to a significant other at home: No Do you presently have visiting nurse or other home services: No Alcohol intake: never Patient Tobacco Use Status: Former Tobacco user Tobacco use type: Cigarette e-Cigarette/Vaping Use: Never Used Second Hand Smoke Exposure: No service: No Current occupational status: retired Cognitive needs: No Hearing needs: No Vision needs: Yes Questionnaire Thrive Questionnaire Date Thrive assessed: 05/06/24 I am a: Patient What is your living situation today?: I have a steady place to live Within the past 12 months, did the food you bought not last and you didn't have the money to get more?: Never true Within the past 12 months, did you worry whether your food would run out before you got money to buy more?: Never true Do you have trouble paying for medicines?: No Do you have trouble getting transportation to medical appointments?: No Do you have trouble paying your heating and electricity bill?: No Do you have trouble taking care of your child, family member or friend?: No Do you have trouble with day-to-day activities such as bathing, preparing meals, shopping, managing finances, etc.?: No Are you currently unemployed and looking for a job?: No Are you interested in more education?: No Please select the resources that you would like help with: None Currently or been in a relationship where the following occur: No concerns reported THRIVE Score: 0 EMILI-7 AMB Questionnaire EMILI-7 Date EMILI - 7 assessed: 05/12/24 Source: Developed by Drs. Jim Villanueva, Martha Richardson, Julian Mensah and colleagues, with an educational dylan from [employer]. Review of Systems Const All systems reviewed & are unremarkable except as noted in HPI and below ENT Reports no additional complaints Card Reports no additional complaints Resp Reports no additional complaints GI Reports no additional complaints Reports no additional complaints Physical exam (Primary Care) Vital Signs: Last Vital Signs Temp 99.3 F 07/30/24 13:52 Pulse 94 07/30/24 13:52 Resp 18 07/30/24 13:52 BP 124/64 07/30/24 13:52 Pulse Ox 95 07/30/24 13:52 Oxygen Delivery Method Room Air 07/30/24 13:52 BMI result Body Mass Index 22.7 Tobacco/Smoking Status: Tobacco use Status Tobacco use date assessed 07/16/24 07/30/24 13:56 Patient Tobacco Use Status Former Tobacco user 07/30/24 13:56 Tobacco use type Cigarette 07/30/24 13:56 e-Cigarette/Vaping Use Never Used 07/30/24 13:56 Thrive Assessment: Date of Thrive Assessment Date Thrive assessed 05/06/24 07/30/24 13:56 Currently or been in a relationship where the following occur: No concerns reported Const General: no acute distress HENMT Head: Yes normal to inspection General nose exam: Abnormal mucous membranes and turbinates present erythematous Face and sinus: Yes sinus tenderness Throat: Yes postnasal drainage Eyes General: appearance normal, both eyes and all related structures Neck Neck: Yes no lymphadenopathy and Yes supple Resp Effort & Inspection: normal respiratory effort Auscultation: clear to auscultation bilaterally Cardio Rhythm: regular rhythm Heart sounds: S1 normal heart sound present and S2 normal heart sound present Coding Level of Care Code Est Pt Level 3 (06796) Diagnoses Sinusitis J32.9 Assessment & Plan Assessment & Plan (1) Sinusitis: Code(s): J32.9 - Chronic sinusitis, unspecified Category: Medical Plan: Z-Jonas is prescribed and supportive care discussed with the patient Medications: New azithromycin For 250 mg dose pack: take 500 mg today (day 1), then 250 mg for 4 days (days 2-5) PO 6 tabs 0RF
[2024-07-30 13:52] VITALS: BP 124/64; PULSE 94; RESP 18; TEMP 37.4; O2SAT 95; BMI 22.7
== END 2024-07-30 17:01 | disposition home or self-care (01) ==
LOC: HO.HMCC 13:47
PROVIDERS: PCP Internal Medicine; Visit Provider Internal Medicine
DX: J32.9 Chronic sinusitis, unspecified (principal)

== ENCOUNTER → 2024-07-30 13:46 | Outpatient (BNVA) | payer MEDICARE, OTHER, SELFPAY | PROVIDERS: PCP Internal Medicine; Visit Provider Internal Medicine | DX: J32.9 Chronic sinusitis, unspecified (principal) | CPT/HCPCS: 99212 ==

== ENCOUNTER 2024-08-13 12:40 | Outpatient (REF) | payer MEDICARE, OTHER, SELFPAY ==
--- NOTE | ~2024-08-13 | FL_ITS ---
LEFT HIP INTRA-ARTICULAR STEROID INJECTION INDICATIONS: Left hip pain. Intra-articular steroid injection is requested by provider. PROCEDURE: Risks and benefits and possible complications were discussed with the patient and the consent form was signed. The patient was placed supine on the fluoroscopy table. The left hip was prepped and draped in normal sterile fashion. 1% buffered lidocaine was used for anesthesia. A 22-gauge spinal needle was used to access the joint. Intra-articular position of the needle within the shoulder joint was verified using 2 cc of Omnipaque 300. A total of 5 mL 2% lidocaine and 80 mg Depo-Medrol was then injected into the hip joint. The needle was then removed and a Band-Aid was applied to the injection site. The patient tolerated the procedure well. There were no immediate complications. FL/FL Guided Asp Inj Major Jt LT IMPRESSION: Successful fluoroscopic guided intra-articular steroid injection into the left hip joint. Electronically signed by: Hernandez Guillermo MD 08/13/2024 02:08 PM EDT
[2024-08-13] MEDS: Lidocaine HCl 2 % 20 ML VIAL 3 ML INFILTRATI (13:35)
[2024-08-13] MEDS: methylPREDNISolone acetate 80 MG VIAL INTRAARTIC (13:36)
[2024-08-13] MEDS: iohexoL 300 MG/ML 50 ML INFUS..BTL 10 ML INTRAARTIC (13:37)
--- OUTSIDE RECORDS SUMMARY | 2024-08-13 14:53 | XMS_ITS | Encounter Summary ---
Author Organization [facility] Address [address] [place] [address] Care Team Providers Care Mystery Shopper Name Role Phone Thierry Anglin MD Primary Care Provider [phone] [facility], Pcp Primary Care Provider Unavailabl e Encounter Details Date Type Department Care Team Description 01/25/2015 Perennial House Manager Report Medical Records [address] [place] [address] [phone] Kei Mcarthur MD Social History Tobacco Use Types Packs/Day Years Used Date Smoking Tobacco: Former Smokeless Tobacco: Never Comments:quit 1994 Alcohol Use Standard Drinks/Week Comments No 0 (1 standard drink = 0.6 oz pure alcohol) used to be heavy user, off ETOH 1996 Sex Assigned at Date Recorded Not on file Job Start Date Occupation Industry Not on file Not on file Not on file documented as of this encounter Plan of Treatment Not on file documented as of this encounter Visit Diagnoses Not on filedocumented in this encounter Care Teams Mystery Shopper Relationship Specialty Start Date End Date Thierry Anglin MD [address] [place] [address] [phone] PCP - General 02/19/1999 12/13/21 [facility], Pcp [address] [place] [address] [phone] PCP - General Internal Medicine 12/14/21 documented as of this encounter
--- OUTSIDE RECORDS SUMMARY | 2024-08-13 14:53 | XMS_ITS | Encounter Summary ---
Author Organization [facility] Address [address] [place] [address] Care Team Providers Care Car Oiler Name Role Phone Thierry Anglin MD Primary Care Provider [phone] [facility], Pcp Primary Care Provider Unavailabl e Encounter Details Date Type Department Care Team Description 08/23/2016 Household Appliances Service Technician Report Medical Records [address] [place] [address] [phone] Tc Payne Social History Tobacco Use Types Packs/Day Years [...] on filedocumented in this encounter Care Teams Car Oiler Relationship Specialty Start Date End Date Thierry Anglin MD [address] [place] [address] [phone] PCP - General 02/19/1999 12/13/21 [facility], Pcp [address] [place] [address] [phone] PCP - General Internal Medicine 12/14/21 documented as of this encounter
--- OUTSIDE RECORDS SUMMARY | 2024-08-13 14:53 | XMS_ITS | Encounter Summary ---
Author Organization [facility] Address [address] [place] [address] Care Team Providers Care Podiatric Assistant Name Role Phone Thierry Anglin MD Primary Care Provider [phone] [facility], Pcp Primary Care Provider Unavailabl e Encounter Details Date Type Department Care Team Description 12/18/2016 Medical Malpractice Paralegal Report Medical Records [address] [place] [address] [phone] Tc Payne Social History Tobacco Use Types [...] on filedocumented in this encounter Care Teams Podiatric Assistant Relationship Specialty Start Date End Date Thierry Anglin MD [address] [place] [address] [phone] PCP - General 02/19/1999 12/13/21 [facility], Pcp [address] [place] [address] [phone] PCP - General Internal Medicine 12/14/21 documented as of this encounter
--- OUTSIDE RECORDS SUMMARY | 2024-08-13 14:53 | XMS_ITS | Encounter Summary ---
Author Organization [facility] Address [address] [place] [address] Care Team Providers Care Senior Software Qa Analyst Name Role Phone Thierry Anglin MD Primary Care Provider [phone] [facility], Pcp Primary Care Provider Unavailabl e Encounter Details Date Type Department Care Team Description 01/04/2017 Palliative Care Specialist Report Medical Records [address] [place] [address] [phone] Tc Payne Social History Tobacco Use Types [...] on filedocumented in this encounter Care Teams Senior Software Qa Analyst Relationship Specialty Start Date End Date Thierry Anglin MD [address] [place] [address] [phone] PCP - General 02/19/1999 12/13/21 [facility], Pcp [address] [place] [address] [phone] PCP - General Internal Medicine 12/14/21 documented as of this encounter
--- OUTSIDE RECORDS SUMMARY | 2024-08-13 14:53 | XMS_ITS | Encounter Summary ---
Author Organization [facility] Address [address] [place] [address] Care Team Providers Care Umbrella Finisher Name Role Phone Thierry Anglin MD Primary Care Provider [phone] [facility], Pcp Primary Care Provider Unavailabl e Encounter Details Date Type Department Care Team Description 05/04/2015 Wellness Visit Medical Records [address] [place] [address] 66828 Thierry Anglin MD [address] [place] [address] [phone] Social History Tobacco Use Types Packs/Day Years [...] on filedocumented in this encounter Care Teams Umbrella Finisher Relationship Specialty Start Date End Date Thierry Anglin MD [address] [place] [address] [phone] PCP - General 02/19/1999 12/13/21 [facility], Pcp [address] [place] [address] [phone] PCP - General Internal Medicine 12/14/21 documented as of this encounter
--- OUTSIDE RECORDS SUMMARY | 2024-08-13 14:53 | XMS_ITS | Encounter Summary ---
Author Organization [facility] Address [address] [place] [address] Care Team Providers Care Field Training Manager Name Role Phone Thierry Anglin MD Primary Care Provider [phone] [facility], Pcp Primary Care Provider Unavailabl e Encounter Details Date Type Department Care Team Description 12/20/2011 Shoe Repairer Helper Report Medical Records [address] [place] [address] 50086 Kei Mcarthur MD Social History Tobacco Use [...] on filedocumented in this encounter Care Teams Field Training Manager Relationship Specialty Start Date End Date Thierry Anglin MD [address] [place] [address] [phone] PCP - General 02/19/1999 12/13/21 [facility], Pcp [address] [place] [address] [phone] PCP - General Internal Medicine 12/14/21 documented as of this encounter
--- OUTSIDE RECORDS SUMMARY | 2024-08-13 14:53 | XMS_ITS | Encounter Summary ---
Author Organization [facility] Address [address] [place] [address] Care Team Providers Care Skiving Machine Operator Name Role Phone Thierry Anglin MD Primary Care Provider [phone] On License Of [facility], Pcp Primary Care Provider Unavailabl e Encounter Details Date Type Department Care Team Description 08/06/2016 Estate Planning Paralegal Report Medical Records [address] [place] [address] 99[address] Tc Payne Social History Tobacco Use Types [...] on filedocumented in this encounter Care Teams Skiving Machine Operator Relationship Specialty Start Date End Date Thierry Anglin MD [address] [place] [address] [phone] PCP - General 02/19/1999 12/13/21 On License Of [facility], Pcp [address] [place] [address] [phone] PCP - General Internal Medicine 12/14/21 documented as of this encounter
--- OUTSIDE RECORDS SUMMARY | 2024-08-13 14:53 | XMS_ITS | Encounter Summary ---
Author Organization [facility] Address [address] [place] [address] Care Team Providers Care Orchestra Teacher Name Role Phone Thierry Anglin MD Primary Care Provider [phone] [facility], Pcp Primary Care Provider Unavailabl e Encounter Details Date Type Department Care Team Description 01/13/2015 Dry Cans Back Tender Report Medical Records [address] [place] [address] 60791 Kei Mcarthur MD Social History Tobacco Use [...] on filedocumented in this encounter Care Teams Orchestra Teacher Relationship Specialty Start Date End Date Thierry Anglin MD [address] [place] [address] [phone] PCP - General 02/19/1999 12/13/21 [facility], Pcp [address] [place] [address] [phone] PCP - General Internal Medicine 12/14/21 documented as of this encounter
--- OUTSIDE RECORDS SUMMARY | 2024-08-13 14:53 | XMS_ITS | Encounter Summary ---
Author Organization [facility] Address [address] [place] [address] Care Team Providers Care Parts Counter Representative Name Role Phone Thierry Anglin MD Primary Care Provider [phone] [facility], Pcp Primary Care Provider Unavailabl e Encounter Details Date Type Department Care Team Description 12/25/2016 School Supervisor Report Medical Records [address] [place] [address]36 Ga Chambers, PAJoaquinC Social History Tobacco Use Types Packs/Day Years [...] on filedocumented in this encounter Care Teams Parts Counter Representative Relationship Specialty Start Date End Date Thierry Anglin MD [address] [place] [address] [phone] PCP - General 02/19/1999 12/13/21 [facility], Pcp [address] [place] [address] [phone] PCP - General Internal Medicine 12/14/21 documented as of this encounter
--- OUTSIDE RECORDS SUMMARY | 2024-08-13 14:53 | XMS_ITS | Encounter Summary ---
Author Organization [facility] Address [address] [place] [address] Care Team Providers Care Sql Ssis Developer Name Role Phone Thierry Anglin MD Primary Care Provider [phone] [facility], Pcp Primary Care Provider Unavailabl e Encounter Details Date Type Department Care Team Description 12/12/2015 Fire Supervisor Report Medical Records [address] [place] [address] [phone] All Harley MD Social History Tobacco Use Types Packs/Day [...] on filedocumented in this encounter Care Teams Sql Ssis Developer Relationship Specialty Start Date End Date Thierry Anglin MD [address] [place] [address] [phone] PCP - General 02/19/1999 12/13/21 [facility], Pcp [address] [place] [address] [phone] PCP - General Internal Medicine 12/14/21 documented as of this encounter
--- OUTSIDE RECORDS SUMMARY | 2024-08-13 14:53 | XMS_ITS | Encounter Summary ---
Author Organization [facility] Address [address] [place] [address] Care Team Providers Care Edge Gluer Name Role Phone Thierry Anglin MD Primary Care Provider [phone] [facility], Pcp Primary Care Provider Unavailabl e Encounter Details Date Type Department Care Team Description 12/21/2011 Release of Information Medical Records [address] [place], [place] [phone] Abstract, Provider Social History Tobacco Use Types Packs/Day Years [...] on filedocumented in this encounter Care Teams Edge Gluer Relationship Specialty Start Date End Date Thierry Anglin MD [address] [place] [address] [phone] PCP - General 02/19/1999 12/13/21 [facility], Pcp [address] [place] [address] [phone] PCP - General Internal Medicine 12/14/21 documented as of this encounter
--- OUTSIDE RECORDS SUMMARY | 2024-08-13 14:53 | XMS_ITS | Encounter Summary ---
Author Organization [facility] Address [address] [place] [address] Care Team Providers Care Technical Operations Vice President Name Role Phone Thierry Anglin MD Primary Care Provider [phone] [facility], Pcp Primary Care Provider Unavailabl e Encounter Details Date Type Department Care Team Description 05/12/2018 Focused Factory Manager Report Medical Records [address] [place] [address] [phone] Tc Payen Social History Tobacco Use Types Packs/Day Years [...] on filedocumented in this encounter Care Teams Technical Operations Vice President Relationship Specialty Start Date End Date Thierry Anglin MD [address] [place] [address] [phone] PCP - General 02/19/1999 12/13/21 [facility], Pcp [address] [place] [address] [phone] PCP - General Internal Medicine 12/14/21 documented as of this encounter
--- OUTSIDE RECORDS SUMMARY | 2024-08-13 14:53 | XMS_ITS | Encounter Summary ---
Author Organization [facility] Address [address] [place] [address] Care Team Providers Care Production Grip Name Role Phone Thierry Anglin MD Primary Care Provider [facility], Pcp Primary Care Provider Unavailabl e Encounter Details Date Type Department Care Team Description 11/05/2016 Orders Only Adult Medicine [facility] [address] [place] [address] [phone] Thierry Anglin MD [address] [place] [address] [phone] Preoperative examination; Screening for deficiency anemia Social History Tobacco Use Types Packs/Day Years [...] on file documented as of this encounter Results * (ABNORMAL) COMPREHENSIVE METABOLIC PANEL (12/06/2016 7:33 AM EDT) [facility] GLUCOSE 116(H) 70 - 100 mg/dL 12/06/2016 9:41 AM T [facility] Comment: Reference range applicable to fasting specimens only Based on recommendations from the ADA and AACE, the fasting glucose reference range has been changed to 70-100 mg/dL. ??This change is effective September 05, 2009 BUN 22 5 - 25 mg/dL 12/06/2016 9:41 AM T [facility] CREAT 1.1 0.7 - 1.5 mg/dL 12/06/2016 9:41 AM T [facility] BUN/CREAT RATIO 20.0 6.0 - 20.0 12/06/2016 9:41 AM EDT [facility] GFR > 60 >60 12/06/2016 9:41 AM [facility] Comment: If patient is -Citizen Of [place], multiply result by 1.21 Chronic Kidney Disease: < 60 ml/min/1.73 square meters Kidney Failure: < 15 ml/min/1.73 square meters Sodium 140 133 - 145 mEq/L 12/06/2016 9:41 AM EDT [facility] Potassium 4.4 3.5 - 5.5 mEq/L 12/06/2016 9:41 AM T [facility] Chloride 102 96 - 108 mEq/L 12/06/2016 9:41 AM T [facility] CO2 28.1 21.0 - 32.0 mEq/L 12/06/2016 9:41 AM T [facility] CALCIUM 9.5 8.5 - 10.5 mg/dL 12/06/2016 9:41 AM T [facility] TOTAL PROTEIN 6.7 6.0 - 8.3 gm/dL 12/06/2016 9:41 AM T [facility] Albumin 4.6 3.2 - 5.6 gm/dL 12/06/2016 9:41 AM [facility] GLOBULIN 2.1 1.9 - 4.4 gm/dL 12/06/2016 9:41 AM [facility] A/G RATIO 2.2 1.1 - 2.3 12/06/2016 9:41 AM [facility] BILI,TOTAL 1.2 0.0 - 1.2 mg/dL 12/06/2016 [facility] AST (SGOT) 17 10 - 42 U/L 12/06/2016 9:41 AM [facility] ALT( SGPT) 14 10 - 60 U/L 12/06/2016 9:41 AM [facility] ALK PHOS 57 42 - 121 U/L 12/06/2016 9:41 AM [facility] 12/06/2016 7:33 AM EDT 12/06/2016 7:34 AM EDT Thierry Anglin MD LAB [facility] [address] [place] [address] * (ABNORMAL) CBC (AUTO DIFF PLATELET) (12/06/2016 7:33 AM EDT) WBC 4.5(L) 4.8 - 10.8 x10-3 12/06/2016 8:09 AM EDT [facility] RBC 5.0 4.5 - 5.5 x10-6 12/06/2016 8:09 AM EDT [facility] HGB 15.0 13.5 - 17.5 g/dl 12/06/2016 8:09 AM EDT [facility] HCT 44.6 42 - 54 % 12/06/2016 8:09 AM EDT [facility] MCV 89.7 79 - 98 fl 12/06/2016 8:09 AM EDT [facility] MCH 30.2 27 - 32 pg 12/06/2016 8:09 AM EDT [facility] MCHC 33.6 32 - 37 g/dl 12/06/2016 8:09 AM EDT [facility] RDW 13.7 11 - 15 % 12/06/2016 8:09 AM EDT [facility] PLT COUNT 160 130 - 400 x10-3 12/06/2016 8:09 AM EDT [facility] MEAN PLATELET VOLUME 11.7(H) 7 - 11 fl 12/06/2016 8:09 AM EDT [facility] NEUT % 56.7 41 - 85 % 12/06/2016 8:09 AM EDT [facility] LYMPH % 25.3 15 - 48 % 12/06/2016 8:09 AM EDT [facility] MONO % 10.9 0 - 12 % 12/06/2016 8:09 AM EDT [facility] EOS % 6.2(H) 0 - 5 % 12/06/2016 8:09 AM EDT [facility] BASO % 0.9 0 - 2 % 12/06/2016 8:09 AM EDT [facility] 12/06/2016 7:3 3 AM EDT 12/06/2016 7:34 AM EDT Thierry Anglin MD LAB [facility] [address] [facility] * URINE, CULTURE (12/06/2016 7:33 AM EDT) Urine (Urine) 12/06/2016 7:3 3 AM EDT 12/06/2016 7:34 AM EDT Narrative [facility] - 12/07/2016 9:42 AM EDT <10,000 CFU/mL GRAM POSITIVE COCCI Thierry Anglin MD LAB [facility] [employer] * (ABNORMAL) URINALYSIS, COMPLETE (12/06/2016 7:33 AM EDT) SPECIFIC GRAVITY, URINE 1.032(H) 1.005 - 1.030 12/06/2016 8:47 AM EDT [facility] PH, URINE 5.5 5 - 8 12/06/2016 8:40 AM EDT [facility] PROTEIN, URINE NEGATIVE <=TRACE mg/dL 12/06/2016 8:40 AM EDT [facility] GLUCOSE, URINE (UA) NEGATIVE NEGATIVE mg/dL 12/06/2016 8:40 AM EDT [facility] KETONE, URINE NEGATIVE NEGATIVE mg/dL 12/06/2016 8:40 AM EDT [facility] BILIRUBIN URINE NEGATIVE NEGATIVE 12/06/2016 8:40 AM EDT [facility] UROBILINOGEN, URINE 0.2 0.2 - 1.0 E.U./dL 12/06/2016 8:40 AM EDT [facility] BLOOD, URINE NEGATIVE NEGATIVE 12/06/2016 8:40 AM EDT [facility] NITRITE,URINE NEGATIVE NEGATIVE 12/06/2016 8:40 AM EDT [facility] LEUKOCYTE ESTERASE, URINE NEGATIVE NEGATIVE 12/06/2016 8:40 AM EDT [facility] RBC-Urine NONE 0 - 4 /hpf 12/06/2016 9:19 AM EDT [facility] WBC, URINE NONE 0 - 4 /hpf 12/06/2016 9:19 AM EDT [facility] 12/06/2016 7:33 AM EDT 12/06/2016 7:34 AM EDT Thierry Anglin MD LAB Performing Organization Address City/State/[facility] Co de Phone Number [address] documented in this encounter Visit Diagnoses Diagnosis Preoperative examination Preoperative examination, unspecified Screening for deficiency anemia Screening for other and unspecified deficiency anemia documented in this encounter Care Teams Production Grip Relationship Specialty Start Date End Date Thierry Anglin MD [address] [place] [address] [phone] PCP - General 02/19/1999 12/13/21 [facility], Pcp [address] [place] [address] [phone] PCP - General Internal Medicine 12/14/21 documented as of this encounter
--- OUTSIDE RECORDS SUMMARY | 2024-08-13 14:53 | XMS_ITS | Encounter Summary ---
Author Organization [facility] Address [address] [place] [address] Care Team Providers Care Wire Mesh Filter Fabricator Name Role Phone Thierry Anglin MD Primary Care Provider [phone] [facility], [facility], Pcp Primary Care Provider Unavailabl e Encounter Details Date Type Department Care Team Description 02/12/2017 Edge Banding Machine Offbearer Report Medical Records [address] [place] [address] [phone] Social History Tobacco Use Types Packs/Day Years [...] on filedocumented in this encounter Care Teams Wire Mesh Filter Fabricator Relationship Specialty Start Date End Date Thierry Anglin MD [address] [place] [address] [phone] PCP - General 02/19/1999 12/13/21 [facility], [facility], Pcp [address] [place] [phone] PCP - General Internal Medicine 12/14/21 documented as of this encounter
--- OUTSIDE RECORDS SUMMARY | 2024-08-13 14:53 | XMS_ITS | Encounter Summary ---
Author Organization [facility] Address [address] [place] [address] Care Team Providers Care Meat Clerk Name Role Phone Thierry Anglin MD Primary Care Provider [phone] [facility], Pcp Primary Care Provider Unavailabl e Reason for Visit * Reason Comments Encounter Details Date Type Department Care Team Description 06/24/2014 Telephone Adult [address] [phone] Thierry Anglin MD [address] [place] [address] [phone] Social History Tobacco Use Types Packs/Day Years [...] as of this encounter Results * (ABNORMAL) PSA, FREE AND TOTAL (06/24/2014 2:50 PM EST) COMPLEXED PSA 3.6(H) 0.0 - 3.0 ng/mL 06/24/2014 6:08 PM EST [facility] FREE PSA (CALCULATED) 0.4 ng/mL 06/24/2014 6:08 PM EST [facility] % FREE PSA 10 >25 % 06/24/2014 6:08 PM EST [facility] Comment: Free PSA is a calculated value. ??The diagnostic usefulness of % free PSA has not been established in patients with Total PSA below 2.6 or above 10 ng/mL. This test was performed using the Centaur Chemiluminescent method. ??PSA values obtained with other methods cannot be used interchangeably PROSTATIC SPECIFIC ANTIGEN DX 4.0 0.0 - 4.0 ng/mL 06/24/2014 6:08 PM EST [facility] 06/24/2014 2:50 PM EST 06/24/2014 2:51 PM EST Thierry Anglin MD LAB [employer] documented in this encounter Visit Diagnoses Diagnosis BPH W/O URINARY OBS/LUTS- Primary Hypertrophy of prostate without urinary obstruction and other lower urinary tract symptoms (LUTS) documented in this encounter Care Teams Meat Clerk Relationship Specialty Start Date End Date Thierry Anglin MD [address] [place] [address] PCP - General 02/19/1999 12/13/21 [facility], Pcp [address] [place] [address] 18439 PCP - General Internal Medicine 12/14/21 documented as of this encounter
--- OUTSIDE RECORDS SUMMARY | 2024-08-13 14:54 | XMS_ITS | Encounter Summary ---
Author Organization [facility] Address [address] [place] [address] Care Team Providers Care Compressed Gas Tester Name Role Phone Thierry Anglin MD Primary Care Provider [phone] [facility] Primary Care Provider Unavailabl e Encounter Details Date Type Department Care Team Description 06/29/2012 Soils Engineer Report Medical Records [address] [place] [phone] All Harley MD Social History Tobacco Use [...] on filedocumented in this encounter Care Teams Compressed Gas Tester Relationship Specialty Start Date End Date Thierry Anglin MD [address] [place] [address] [phone] PCP - General 02/19/1999 12/13/21 [facility]cp [address] [place] [phone] PCP - General Internal Medicine 12/14/21 documented as of this encounter
--- OUTSIDE RECORDS SUMMARY | 2024-08-13 14:54 | XMS_ITS | Encounter Summary ---
Author Organization [facility] Address [address] [place] [address] Care Team Providers Care Congressional Assistant Name Role Phone Thierry nAglin MD Primary Care Provider [phone] [facility], Pcp Primary Care Provider Unavailabl e Reason for Visit * Reason Comments E-prescribe Rx Request Encounter Details Date Type Department Care Team Description 02/09/2020 Refill Adult Medicine [address] [phone] Thierry Anglin MD [address] [place] [address] [phone] E-prescribe Rx Request Social History Tobacco Use Types Packs/Day Years [...] on file documented as of this encounter Miscellaneous Notes * Telephone Encounter - Dannielle Medel M.A. - 02/10/2020 9:58 AM EDT Lab Results Component Value Date NA 139 02/19/2019 K 4.8 02/19/2019 CO2 29 02/19/2019 CL 106 02/19/2019 BUN 16 02/19/2019 CREAT 1.02 02/19/2019 GLU 104 02/19/2019 CA 8.8 02/19/2019 GFR > 60 02/19/2019 Last appt 01/04/20 * Telephone Encounter - Lexii Whipple - 02/10/2020 7:59 AM EDT Patient would like script to be: E-PRESCRIBED/FAXED TO PHARMACY WHEN WAS THE PATIENT'S LAST APPOINTMENT IN ADULT MEDICINE? 01/04/2020 WHEN WAS THE LAST TIME THE PATIENT SAW THEIR PCP? Same as above Does patient have an upcoming appointment? Yes 06/06/2020 (THE MEDICATION REQUESTED IS ON THE MED LIST ABOVE) All of the medications requested were on the CURRENT MEDS list Did you check the Pharmacy information above?: YES Patient wants: 30 -day supply Is this a mail order prescription request ? NO If the refill is from a FAXED refill request what is the RX # listed on the fax? N/A Patients current insurance carrier is: [place] / [place] / Product Type: MEDICARE [id number] documented in this encounter Plan of Treatment Not on file documented as of this encounter Visit Diagnoses Not on filedocumented in this encounter Care Teams Congressional Assistant Relationship Specialty Start Date End Date Thierry Anglin MD [address] [place] [address] PCP - General 02/19/1999 12/13/[address] [address] PCP - General Internal Medicine 12/14/21 documented as of this encounter
--- OUTSIDE RECORDS SUMMARY | 2024-08-13 14:54 | XMS_ITS | Encounter Summary ---
Author Organization [facility] Address [address] [place] [address] Care Team Providers Care Coin Box Collector Name Role Phone Thierry Anglin MD Primary Care Provider [phone] [facility], Pcp Primary Care Provider Unavailabl e Reason for Visit * Reason Comments E-prescribe Rx Request Encounter Details Date Type Department Care Team Description 08/31/2020 Refill Adult Medicine [address] [phone] Thierry Anglin MD [address] [place] [address] [phone] E-prescribe Rx Request Social History Tobacco Use [...] encounter Miscellaneous Notes * Telephone Encounter - Alla Aguirre M.A. - 08/31/2020 11:44 AM EDT Last office visit 06/06/20 Next office visit 11/03/20 Lab Results Component Value Date NA 138 05/28/2020 K 4.2 05/28/2020 CO2 30 05/28/2020 CL 104 05/28/2020 BUN 15 05/28/2020 CREAT 1.00 05/28/2020 GLU 104 05/28/2020 CA 9.4 05/28/2020 GFR > 60 05/28/2020 Lab Results Component Value Date CHOL 217 05/28/2020 LDL 146 05/28/2020 HDL 55 05/28/2020 TRIG 83 05/28/2020 SGOT 23 05/28/2020 SGPT 32 05/28/2020 * Telephone Encounter - Neil Tony - 08/31/2020 10:42 AM EDT Patient would like script to be: E-PRESCRIBED/FAXED TO PHARMACY WHEN WAS THE PATIENT'S LAST APPOINTMENT IN ADULT MEDICINE? 06/06/2020 WHEN WAS THE LAST TIME THE PATIENT SAW THEIR PCP? Same as above Does patient have an upcoming appointment? Yes 11/03/2020 (THE MEDICATION REQUESTED IS ON THE MED LIST ABOVE) All of the medications requested were on the CURRENT MEDS list Did you check the Pharmacy information above?: YES Patient wants: 90 -day supply Is this a mail order prescription request ? NO If the refill is from a FAXED refill request what is the RX # listed on the fax? N/A Patients current insurance carrier is: [place] / [place] / Product Type: MEDICARE [id number] documented in this encounter Plan of Treatment Not on file documented as of this encounter Visit Diagnoses Not on filedocumented in this encounter Care Teams Coin Box Collector Relationship Specialty Start Date End Date Thierry Anglin MD [address] [place] [address] PCP - General 02/19/1999 12/13/[address] [address] PCP - General Internal Medicine 12/14/21 documented as of this encounter
--- OUTSIDE RECORDS SUMMARY | 2024-08-13 14:54 | XMS_ITS | Encounter Summary ---
Author Organization [facility] Address [address] [place] [address] Care Team Providers Care Corporate Investigator Name Role Phone Thierry Anglin MD Primary Care Provider [phone] [facility], Pcp Primary Care Provider Unavailabl e Encounter Details Date Type Department Care Team Description 05/06/2012 Pricing Actuary Report Medical Records [address] [place] [phone] Jim Troy MD Social History Tobacco Use Types Packs/Day [...] on filedocumented in this encounter Care Teams Corporate Investigator Relationship Specialty Start Date End Date Thierry Anglin MD [address] [place] [address] [phone] PCP - General 02/19/1999 12/13/21 [facility], Pcp [address] [place] [address] PCP - General Internal Medicine 12/14/21 documented as of this encounter
--- OUTSIDE RECORDS SUMMARY | 2024-08-13 14:54 | XMS_ITS | Encounter Summary ---
Author Organization [facility] Address [address] [place] [address] Care Team Providers Care Sanitation Worker Cleaning Machinery Name Role Phone Thierry Anglin MD Primary Care Provider [phone] [facility], Pcp Primary Care Provider Unavailabl e Encounter Details Date Type Department Care Team Description 07/28/2013 Sheriff Officer Report Medical Records [address] [place] [phone] Boaz Sandoval MD Social History Tobacco Use Types Packs/Day [...] on filedocumented in this encounter Care Teams Sanitation Worker Cleaning Machinery Relationship Specialty Start Date End Date Thierry Anglin MD [address] [place] [address] [phone] PCP - General 02/19/1999 12/13/21 [facility], Pcp [address] [place] [address] 89651 PCP - General Internal Medicine 12/14/21 documented as of this encounter
--- OUTSIDE RECORDS SUMMARY | 2024-08-13 14:54 | XMS_ITS | Encounter Summary ---
Author Organization [facility] Address [address] [place] [address] Care Team Providers Care Cake Former Name Role Phone Thierry Anglin MD Primary Care Provider [phone] [facility], Pcp Primary Care Provider Unavailabl e Encounter Details Date Type Department Care Team Description 10/18/2014 Iron Miner Blasting Report Medical Records [address] [place] [phone] All Harley MD Social History Tobacco Use [...] on filedocumented in this encounter Care Teams Cake Former Relationship Specialty Start Date End Date Thierry Anglin MD [address] [place] [address] [phone] PCP - General 02/19/1999 12/13/21 [facility], Pcp [address] [place] [address] 134[address] PCP - General Internal Medicine 12/14/21 documented as of this encounter
--- OUTSIDE RECORDS SUMMARY | 2024-08-13 14:54 | XMS_ITS | Encounter Summary ---
Author Organization [facility] Address [address] [place] [address] Care Team Providers Care Civil Lawyer Name Role Phone Thierry Anglin MD Primary Care Provider [phone] [facility], [facility], Pcp Primary Care Provider Unavailabl e Reason for Visit * Reason Onset Date Comments Information Needed 07/08/2019 Encounter Details Date Type Department Care Team Description 07/08/2019 Telephone Adult Medicine [address] [phone] Thierry Anglin MD [address] [place] [address] [phone] Information Needed Social History Tobacco Use Types Packs/Day Years [...] encounter Miscellaneous Notes * Telephone Encounter - Ramandeep Alamo - 07/08/2019 3:36 PM EDT APPOINTMENT GIVEN 08/11/2019. * Telephone Encounter - Dannielle Medel M.A. - 07/08/2019 3:15 PM EDT appt was cancelled by veterinary receptionist today,. Pt is calling back * Telephone Encounter - Ernst Esparza - 07/08/2019 2:18 PM EDT Information Needed Who is calling: Patient Information being requested? Patient received a call from us but does not know what it is for. If information is regarding a referral and notes are needed- transfer call to HIM department If other information is needed, was an ANTONIO signed? YES How is the information to be communicated back to the caller? documented in this encounter Plan of Treatment Not on file documented as of this encounter Visit Diagnoses Not on filedocumented in this encounter Care Teams Civil Lawyer Relationship Specialty Start Date End Date Thierry Anglin MD [address] [place] [address] PCP - General 02/19/1999 12/13/21 [facility], [facility], [address] [address] PCP - General Internal Medicine 12/14/21 documented as of this encounter
--- OUTSIDE RECORDS SUMMARY | 2024-08-13 14:54 | XMS_ITS | Encounter Summary ---
Author Organization [facility] Address [address] [place] [address] Care Team Providers Care Certified Nurse Practitioner Name Role Phone Thierry Anglin MD Primary Care Provider [phone] [facility], Pcp Primary Care Provider Unavailabl e Encounter Details Date Type Department Care Team Description 01/28/2013 Ice Scraper Report Medical Records [address] [place] [address] All Harley MD Social History Tobacco Use [...] on filedocumented in this encounter Care Teams Certified Nurse Practitioner Relationship Specialty Start Date End Date Thierry Anglin MD [address] [place] [address] [phone] PCP - General 02/19/1999 12/13/21 [facility], Pcp [address] [place] [address] PCP - General Internal Medicine 12/14/21 documented as of this encounter
== END 2024-08-13 12:41 | disposition home or self-care (01) ==
LOC: HO.XRAY 12:40
PROVIDERS: PCP Internal Medicine; Visit Provider Physician Assistant
DX: M16.12 Unilateral primary osteoarthritis, left hip (principal); M25.552 Pain in left hip
CPT/HCPCS: 20610; 77002; J1010; J2003; Q9967

== ENCOUNTER → 2024-08-13 12:42 | Outpatient (BNV) | payer MEDICARE, OTHER, SELFPAY | PROVIDERS: PCP Internal Medicine; Visit Provider Radiology Diagnostic Radiology | DX: M25.552 Pain in left hip (principal) | CPT/HCPCS: 20610; 77002 ==

== ENCOUNTER 2024-08-27 09:00 | Outpatient (RCR) | payer MEDICARE, OTHER, SELFPAY ==
--- NOTE | 2024-07-30 09:53 | MHC.PT.EP ---
[facility] [place] Office [place] Office [address] Christopher Novoa [address] [phone] F: [phone] F: [phone] F: [phone] F: [phone] Physical Therapy Plan of Care Date of Evaluation: 07/30/24 Date of Surgery: n/a Diagnosis: OA of L hip Assessment: Patient is a 74 year old male presenting to PT with complaints of pain in his L hip. Pt reports onset of pain began May 2024 due to insidious onset. He presents today with impairments in pain, L hip ROM, L hip strength, gait mechanics. Pt's current occupation is at [employer], with baseline physical activities including ambulating, stair negotiation, transfers, ADLs, work. 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 Clinical presentation today is most consistent with signs and sx associated with L hip pain and pt will benefit from skilled PT 2 week x 4 weeks to address the following problems and impairments noted upon evaluation: pain, L hip ROM, L hip strength, gait mechanics. These problems limit the patient with the following functional activities: ambulating, stair negotiation, transfers, ADLs, work. The prescribed treatment plan of care is medically necessary. Co-morbidities of blind L eye were identified and taken into considerations of plan of care. Pt was educated on HEP, role of PT, prognosis, POC. Frequency and Duration: The patient will be seen 2 x week x 4 weeks Short Term Goals: Pt will demonstrate improved L hip MMT strength by 1/3 grade in 2 weeks. Pt will demonstrate less pain with L hip ROM in 2 weeks. 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 Pt will demonstrate ability to negotiate stairs with min to no pain in 4 weeks for improved access to his home. Pt will demonstrate ability to ambulate with LRD and good mechanics in 4 weeks for return to PLOF. Treatment Plan: Modalities to reduce pain, spasms and effusion. Manual therapy to restore motion and function. Therapeutic exercise to improve strength and flexibility. Neuromuscular re-education for posture and balance. Therapeutic activities to return to functional activities of daily living. Electronically signed by: Meagan Coffman, PT, DPT, ATC Please sign and return to therapist. Thank you for your referral.
--- NOTE | 2024-10-05 07:53 | MHC.PT.DC ---
[facility] [place] Office [place] [facility] [place] [facility] [address] Christopher Novoa [address] [phone] F: [phone] F: [phone] F: [phone] F: [phone] Physical Therapy Discharge Report Diagnosis: OA of L hip Date of Surgery: n/a Date of Evaluation: 07/30/24 Date of Discharge: 10/05/24 Treatments to Date: 8 Cancellations to Date: 0 No Shows to Date: 0 Discharge Status: Improved Function Independent with HEP Discharge Summary: Pt had been placed on 30 day hold while he transitioned to HEP. He has not called in >30 days so therefore plan was for d/c. He had improved function and pain at last visit. Electronically signed by: Meagan Coffman, PT, DPT, ATC Please sign and return to therapist. Thank you for your referral.
== END 2024-10-05 07:53 | disposition home or self-care (01) ==
LOC: HO.PTCHIC 09:00
PROVIDERS: PCP Internal Medicine; Visit Provider Internal Medicine
DX: M16.12 Unilateral primary osteoarthritis, left hip (principal)
CPT/HCPCS: 97110; 97140; 97162

== ENCOUNTER 2024-09-17 08:56 | Outpatient (AMB) | payer MEDICARE, OTHER, SELFPAY ==
[2024-09-17 09:10] VITALS: BP 124/76; PULSE 58; RESP 18; TEMP 36.7; O2SAT 98; BMI 22.6
--- NOTE | 2024-09-17 09:10 | A.OFFPC_ITS ---
Vital Signs 09/17/24 09:10 Height 6 ft 1 in Weight 171 lb BMI 22.6 BP 124/76 Blood Pressure Location Lt brachial Position Sitting Respiration 18 Pulse 58 Pulse Source Pulse Oximeter Temp 98.0 F Temp Source Oral Pulse Oximetry (%) 98 Oxygen Delivery Method Room Air Intake Visit Reasons: 2 month follow up Intake Note: Pt is here today for 2 months follow up visit. Allergies Sulfa (Sulfonamide Antibiotics) Adverse Reaction (Mild, Verified 09/17/24 09:11) Hives Medication List - Last Reconciled 09/17/24 by Stefanie Frias MD amlodipine 10 mg PO DAILY cyclosporine 0.05% (Restasis) 1 drp ophthalmic (eye) BID loratadine (Claritin) 10 mg PO DAILY pantoprazole 20 mg PO DAILY polyethylene glycol 3350 (Miralax) 17 grams PO DAILY promethazine-phenylephrine 6.25-5 mg/5 mL (Promethazine VC) 5 mL PO .at bedtime PRN simvastatin 10 mg PO BEDTIME Tobacco use date assessed: 09/17/24 Fall risk assessment: No Falls in past year Last assessed Fall Risk: 09/17/24 Dental Screening Dental Screen Date: 05/12/24 HPI 2 month follow up HPI Details Patient presents for the follow-up on hypertension hyperlipidemia controlled on current medications. Patient completed physical therapy for left hip and left-sided lower back pain and is feeling significantly better. 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 GERD (gastroesophageal reflux disease) Elevated cholesterol HTN (hypertension) Surgical History History of esophagogastroduodenoscopy (EGD) H/O colonoscopy History of right inguinal hernia repair History of prostatectomy History of bilateral cataract extraction Family History Mother Alcohol abuse Substance use disorder Mental health disorder Father Heart aneurysm Substance use disorder Brother Suicide Substance use disorder Social History Household Members 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, , 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 Housing: House Are you a primary child care specialist to a significant other at home: No Do you presently have visiting nurse or other home services: No Alcohol intake: never Patient Tobacco Use Status: Former Tobacco user Tobacco use type: Cigarette e-Cigarette/Vaping Use: Never Used Second Hand Smoke Exposure: No service: No Current occupational status: retired Cognitive needs: No Hearing needs: No Vision needs: Yes Questionnaire Thrive Questionnaire Date Thrive assessed: 05/06/24 I am a: Patient What is your living situation today?: I have a steady place to live Within the past 12 months, did the food you bought not last and you didn't have the money to get more?: Never true Within the past 12 months, did you worry whether your food would run out before you got money to buy more?: Never true Do you have trouble paying for medicines?: No Do you have trouble getting transportation to medical appointments?: No Do you have trouble paying your heating and electricity bill?: No Do you have trouble taking care of your child, family member or friend?: No Do you have trouble with day-to-day activities such as bathing, preparing meals, shopping, managing finances, etc.?: No Are you currently unemployed and looking for a job?: No Are you interested in more education?: No Please select the resources that you would like help with: None Currently or been in a relationship where the following occur: No concerns reported THRIVE Score: 0 EMILI-7 AMB Questionnaire EMILI-7 Date EMILI - 7 assessed: 05/12/24 Source: Developed by Drs. Jim Villanueva, Martha Richardson, Julian Mensah and colleagues, with an educational dylan from [employer]. Review of Systems Const All systems reviewed & are unremarkable except as noted in HPI and below Eyes Reports no additional complaints ENT Reports no additional complaints Card Reports no additional complaints Resp Reports no additional complaints GI Reports no additional complaints Reports no additional complaints Physical exam (Primary Care) Vital Signs: Last Vital Signs Temp 98.0 F 09/17/24 09:10 Pulse 58 09/17/24 09:10 Resp 18 09/17/24 09:10 BP 124/76 09/17/24 09:10 Pulse Ox 98 09/17/24 09:10 Oxygen Delivery Method Room Air 09/17/24 09:10 BMI result Body Mass Index 22.6 Tobacco/Smoking Status: Tobacco use Status Tobacco use date assessed 09/17/24 09/17/24 09:23 Patient Tobacco Use Status Former Tobacco user 09/17/24 09:23 Tobacco use type Cigarette 09/17/24 09:23 e-Cigarette/Vaping Use Never Used 09/17/24 09:23 Thrive Assessment: Date of Thrive Assessment Date Thrive assessed 05/06/24 09/17/24 09:23 Currently or been in a relationship where the following occur: No concerns reported Const General: no acute distress HENMT Face and sinus: Yes normal facial exam Mouth: Normal oral and palatal mucosa present Eyes General: appearance normal, both eyes and all related structures Neck Neck: Yes supple Resp Effort & Inspection: normal respiratory effort Auscultation: clear to auscultation bilaterally Cardio Rhythm: regular rhythm Heart sounds: S1 normal heart sound present and S2 normal heart sound present Coding Level of Care Code Est Pt Level 4 (27692) Diagnoses HTN (hypertension) I10 Hyperlipidemia E78.5 Osteoarthritis of left hip M16.12 Assessment & Plan Assessment & Plan (1) HTN (hypertension): Code(s): I10 - Essential (primary) hypertension Category: Medical Plan: Continue amlodipine (2) Hyperlipidemia: Code(s): E78.5 - Hyperlipidemia, unspecified Category: Medical Plan: Continue statin (3) Osteoarthritis of left hip: Code(s): M16.12 - Unilateral primary osteoarthritis, left hip Category: Medical Plan: Continue exercise Orders: Orders Comprehensive [place]. Panel Fast 3 Months E78.5 - Hyperlipidemia, unspecified, I10 - Essential (primary) hypertension, R73.9 - Hyperglycemia, unspecified Complete Blood Count Auto Diff 3 Months E78.5 - Hyperlipidemia, unspecified, I10 - Essential (primary) hypertension, R73.9 - Hyperglycemia, unspecified Hemoglobin A1c 3 Months E78.5 - Hyperlipidemia, unspecified, I10 - Essential (primary) hypertension, R73.9 - Hyperglycemia, unspecified TSH reflex Free T4 3 Months E78.5 - Hyperlipidemia, unspecified, I10 - Essential (primary) hypertension, R73.9 - Hyperglycemia, unspecified Lipid Panel 3 Months E78.5 - Hyperlipidemia, unspecified, I10 - Essential (primary) hypertension, R73.9 - Hyperglycemia, unspecified
== END 2024-09-17 09:55 | disposition home or self-care (01) ==
LOC: HO.HMCC 08:57
PROVIDERS: PCP Internal Medicine; Visit Provider Internal Medicine
DX: I10 Essential (primary) hypertension (principal); E78.5 Hyperlipidemia, unspecified; M16.12 Unilateral primary osteoarthritis, left hip

== ENCOUNTER → 2024-09-17 08:56 | Outpatient (BNVA) | payer MEDICARE, OTHER, SELFPAY | PROVIDERS: PCP Internal Medicine; Visit Provider Internal Medicine | DX: M16.12 Unilateral primary osteoarthritis, left hip (principal); I10 Essential (primary) hypertension; E78.5 Hyperlipidemia, unspecified | CPT/HCPCS: 99212 ==

== ENCOUNTER 2024-11-23 07:36 | Outpatient (REF) | payer MEDICARE, OTHER, SELFPAY ==
--- OUTSIDE RECORDS SUMMARY | 2024-11-23 07:39 | XMS_ITS ---
Author Name [facility] Organization Unknown Care Team Organization Name Specialty Phone Email Start Date End Da te [facility] Anglin Primary [facility] 02/27/2022 12/09/2023
--- OUTSIDE RECORDS SUMMARY | 2024-11-23 07:39 | XMS_ITS | Encounter Summary ---
Author Organization [facility] Address [address] [place] [address] Care Team Providers Care Industrial Psychology Teacher Name Role Phone Thierry Anglin MD Primary Care Provider [phone] [facility], Pcp Primary Care Provider Unavailabl e Encounter Details Date Type Department Care Team Description 01/03/2012 Hospital Medical Records [address] [place] [address] Kei Mcarthur MD Social History Tobacco Use [...] on filedocumented in this encounter Care Teams Industrial Psychology Teacher Relationship Specialty Start Date End Date Thierry Anglin MD [address] [place] [address] [phone] PCP - General 02/19/1999 12/13/21 [facility], Pcp [address] [place] [address] PCP - General Internal Medicine 12/14/21 documented as of this encounter
[2024-11-23 10:22] LABS: MANUAL DIFF FLAG NO
[2024-11-23 10:37] LABS: Hematocrit 44.2 % (42.0-52.0); Hemoglobin 14.8 g/dl (14.0-18.0); Imm Gran Abs Auto 0.01 X10*3/uL (0.00-0.03); Imm Gran Pct Auto 0.2 % (0.0-0.4); Lymphocytes Absolute Auto 1.1 X10*3/uL (1.2-4.9); Mean Corpuscular HGB Conc 33.5 g/dl (31.0-36.0); Mean Corpuscular Hemoglobin 30.3 pg (27.0-33.0); Mean Corpuscular Volume 90.4 fL (80.0-98.0); NRBC Abs Auto 0.000 X10*3/uL (0.0-0.012); NRBC Pct Auto 0.0 /100WBC (0.0-0.2); Platelet Count 219 X10*3/uL (160-400); Red Blood Count 4.89 X10*6/uL (4.60-5.80); White Blood Count 4.8 X10*3/uL (4.8-10.8)
[2024-11-23 10:53] LABS: Hemoglobin A1C 144.7943 umol/L; Total Hemoglobin (HGBA1C) 3887.9031 umol/L
[2024-11-23 11:16] LABS: Alanine Aminotransferase 18 U/L (0-40); Albumin Level 4.7 g/dL (3.5-5.0); Alkaline Phosphatase 80 U/L (39-117); Anion Gap 12 (12-20); Aspartate Amino Transferase 30 U/L (5-37); Blood Urea Nitrogen 14 mg/dL (9-16); Calcium 9.4 mg/dL (8.4-10.2); Carbon Dioxide 27 mmol/L (22-29); Chloride 106 mmol/L (96-108); Cholesterol 225 mg/dL (<200); Estimated Glomerular Filt Rate > 60; HDL Cholesterol 59 mg/dL (>40); Potassium 3.7 mmol/L (3.3-5.1); Sodium 141 mmol/L (135-145); Total Protein 7.2 g/dL (6.5-8.0); Triglycerides 120 mg/dL (<150)
== END 2024-11-23 07:37 | disposition home or self-care (01) ==
LOC: HO.HMGCLDS 07:36
PROVIDERS: PCP Internal Medicine; Visit Provider Internal Medicine
DX: I10 Essential (primary) hypertension (principal); E78.5 Hyperlipidemia, unspecified; R73.9 Hyperglycemia, unspecified
CPT/HCPCS: 36415; 80053; 80061; 83036; 84443; 85025

== ENCOUNTER 2024-11-24 09:29 | Outpatient (AMB) | payer MEDICARE, OTHER, SELFPAY ==
[2024-11-24 09:31] VITALS: BP 118/78; PULSE 60; RESP 18; TEMP 36.8; O2SAT 97; BMI 23.6
--- NOTE | 2024-11-24 09:31 | A.OFFPC_ITS ---
Vital Signs 11/24/24 09:31 Height 6 ft 1 in Weight 179 lb BMI 23.6 BP 118/78 Blood Pressure Location Lt brachial Position Sitting Respiration 18 Pulse 60 Pulse Source Pulse Oximeter Temp 98.2 F Temp Source Oral Pulse Oximetry (%) 97 Oxygen Delivery Method Room Air Intake Visit Reasons: 6 months follow up Intake Note: Pt is here today for a 6 months follow up visit. Allergies Sulfa (Sulfonamide Antibiotics) Adverse Reaction (Mild, Verified 11/24/24 09:40) Hives Medication List - Last Reconciled 11/24/24 by Stefanie Frias MD amlodipine 10 mg PO DAILY cyclosporine 0.05% (Restasis) 1 drp ophthalmic (eye) BID loratadine (Claritin) 10 mg PO DAILY pantoprazole 20 mg PO DAILY polyethylene glycol 3350 (Miralax) 17 grams PO DAILY promethazine-phenylephrine 6.25-5 mg/5 mL (Promethazine VC) 5 mL PO .at bedtime PRN simvastatin 10 mg PO BEDTIME Tobacco use date assessed: 11/24/24 Fall risk assessment: No Falls in past year Last assessed Fall Risk: 11/24/24 Dental Screening Dental Screen Date: 11/24/24 Did you have a dental visit in the last 12 months?: Yes Did you have a dental problem in the last 6 months where you did not have access to dental care?: No Was dental information given to patient?: Patient has dentist HPI 6 months follow up HPI Details Patient presents for the follow-up on hypertension hyperlipidemia controlled on current medications. 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 GERD (gastroesophageal reflux disease) Elevated cholesterol HTN (hypertension) Surgical History History of esophagogastroduodenoscopy (EGD) H/O colonoscopy History of right inguinal hernia repair History of prostatectomy History of bilateral cataract extraction Family History Mother Alcohol abuse Substance use disorder Mental health disorder Father Heart aneurysm Substance use disorder Brother Suicide Substance use disorder Social History Household Members 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, , 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 Housing: House Are you a primary neonatal intensive care nurse to a significant other at home: No Do you presently have visiting nurse or other home services: No Alcohol intake: never Patient Tobacco Use Status: Former Tobacco user Tobacco use type: Cigarette e-Cigarette/Vaping Use: Never Used Second Hand Smoke Exposure: No service: No Current occupational status: retired Cognitive needs: No Hearing needs: No Vision needs: Yes Questionnaire Thrive Questionnaire Date Thrive assessed: 05/06/24 I am a: Patient What is your living situation today?: I have a steady place to live Within the past 12 months, did the food you bought not last and you didn't have the money to get more?: Never true Within the past 12 months, did you worry whether your food would run out before you got money to buy more?: Never true Do you have trouble paying for medicines?: No Do you have trouble getting transportation to medical appointments?: No Do you have trouble paying your heating and electricity bill?: No Do you have trouble taking care of your child, family member or friend?: No Do you have trouble with day-to-day activities such as bathing, preparing meals, shopping, managing finances, etc.?: No Are you currently unemployed and looking for a job?: No Are you interested in more education?: No Please select the resources that you would like help with: None Currently or been in a relationship where the following occur: No concerns reported THRIVE Score: 0 EMILI-7 AMB Questionnaire EMILI-7 Date EMILI - 7 assessed: 05/12/24 Source: Developed by Drs. Jim Villanueva, Martha Richardson, Julian Mensah and colleagues, with an educational dylan from [employer]. Review of Systems Const All systems reviewed & are unremarkable except as noted in HPI and below Eyes Reports no additional complaints ENT Reports no additional complaints Card Reports no additional complaints Resp Reports no additional complaints GI Reports no additional complaints Physical exam (Primary Care) Vital Signs: Last Vital Signs Temp 98.2 F 11/24/24 09:31 Pulse 60 11/24/24 09:31 Resp 18 11/24/24 09:31 BP 118/78 11/24/24 09:31 Pulse Ox 97 11/24/24 09:31 Oxygen Delivery Method Room Air 11/24/24 09:31 BMI result Body Mass Index 23.6 Tobacco/Smoking Status: Tobacco use Status Tobacco use date assessed 11/24/24 11/24/24 09:46 Patient Tobacco Use Status Former Tobacco user 11/24/24 09:46 Tobacco use type Cigarette 11/24/24 09:46 e-Cigarette/Vaping Use Never Used 11/24/24 09:46 Thrive Assessment: Date of Thrive Assessment Date Thrive assessed 05/06/24 11/24/24 09:46 Currently or been in a relationship where the following occur: No concerns reported Const General: no acute distress HENMT Head: Yes normal to inspection Mouth: Normal oral and palatal mucosa present Neck Neck: Yes supple Resp Effort & Inspection: normal respiratory effort Auscultation: clear to auscultation bilaterally Cardio Rhythm: regular rhythm Heart sounds: S1 normal heart sound present and S2 normal heart sound present GI Inspection: Yes normal to inspection Palpation (GI): Soft to palpation Percussion: Yes normal to percussion Coding Level of Care Code Est Pt Level 4 (29349) Diagnoses HTN (hypertension) I10 Hyperlipidemia E78.5 Hyperglycemia R73.9 Assessment & Plan Assessment & Plan (1) HTN (hypertension): Code(s): I10 - Essential (primary) hypertension Category: Medical Plan: Continue current medications (2) Hyperlipidemia: Code(s): E78.5 - Hyperlipidemia, unspecified Category: Medical Plan: Continue statin (3) Hyperglycemia: Code(s): R73.9 - Hyperglycemia, unspecified Category: Medical Plan: A1c is 5.6, continue ADA diet regular exercise follow-up in 6 months with a fasting labs before Orders: Orders Comprehensive [place]. Panel Fast 6 Months E78.5 - Hyperlipidemia, unspecified, I10 - Essential (primary) hypertension, R73.9 - Hyperglycemia, unspecified Hemoglobin A1c 6 Months E78.5 - Hyperlipidemia, unspecified, I10 - Essential (primary) hypertension, R73.9 - Hyperglycemia, unspecified Lipid Panel 6 Months E78.5 - Hyperlipidemia, unspecified, I10 - Essential (primary) hypertension, R73.9 - Hyperglycemia, unspecified Complete Blood Count Auto Diff 6 Months E78.5 - Hyperlipidemia, unspecified, I10 - Essential (primary) hypertension, R73.9 - Hyperglycemia, unspecified
== END 2024-11-24 10:13 | disposition home or self-care (01) ==
LOC: HO.HMCC 09:30
PROVIDERS: PCP Internal Medicine; Visit Provider Internal Medicine
DX: I10 Essential (primary) hypertension (principal); E78.5 Hyperlipidemia, unspecified; R73.9 Hyperglycemia, unspecified

== ENCOUNTER → 2024-11-24 09:29 | Outpatient (BNVA) | payer MEDICARE, OTHER, SELFPAY | PROVIDERS: PCP Internal Medicine; Visit Provider Internal Medicine | DX: I10 Essential (primary) hypertension (principal); E78.5 Hyperlipidemia, unspecified; R73.9 Hyperglycemia, unspecified; Z87.891 Personal history of nicotine dependence | CPT/HCPCS: 99212 ==